=== PATIENT | male | born 1940 | race Caucasian/White ===

== ENCOUNTER → 2018-04-28 17:50 | Outpatient (CLI) | payer MEDICARE, MEDICAID, SELFPAY ==
[2018-04-28 18:34] LABS: PSA,Total - Annual Screen 1.24 ng/mL (0.00-4.00)
== END ==
PROVIDERS: Family Provider Internal Medicine; PCP Internal Medicine; Visit Provider Urology
DX: Z12.5 Encounter for screening for malignant neoplasm of prostate (principal)
CPT/HCPCS: 36415; 84153; G0103

== ENCOUNTER → 2020-03-12 11:42 | Outpatient (CLI) | payer MEDICARE, MEDICAID, SELFPAY ==
[2020-03-12 13:09] LABS: PSA,Total- Diagnostic 1.51 ng/mL (0.0-4.0)
== END ==
PROVIDERS: PCP Internal Medicine; Referring Provider Nurse Practitioner Adult Health; Visit Provider Nurse Practitioner Adult Health
DX: C61 Malignant neoplasm of prostate (principal)
CPT/HCPCS: 36415; 84153

== ENCOUNTER → 2021-04-22 16:11 | Outpatient (CLI) | payer MEDICARE, MEDICAID, SELFPAY ==
[2021-04-22 17:50] LABS: PSA,Total- Diagnostic 3.06 ng/mL (0.0-4.0)
== END ==
PROVIDERS: PCP Internal Medicine; Visit Provider Urology
DX: C61 Malignant neoplasm of prostate (principal)
CPT/HCPCS: 36415; 84153

== ENCOUNTER 2024-07-24 20:13 | Emergency (ER) | payer MEDICARE, MEDICAID, SELFPAY ==
[2024-07-24 20:15] VITALS: BP 163/93; PULSE 74; RESP 18; TEMP 36.7; O2SAT 98; BMI 28.9
--- NOTE | 2024-07-24 21:04 | ED.RN ---
PATIENT TOOK OXCARBAZEPINE 150 MG, SERTRALINE 150 MG FROM [employer] [facility]. 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 HE TOOK HIS THEN WALK AWAY, THEN ANOTHER MEMBER GOT HIS MEDICATIONS SAT ON THE TABLE IN FRONT OF HIM. TONI MUST HAVE WALKED BY AND TAKEN THE ADDITIONAL CUP OF MEDICATIONS THAT WAS NOT HIS OWN.
[2024-07-24 21:13] VITALS: BP 134/65; PULSE 70; RESP 14; O2SAT 97
[2024-07-24 21:23] LABS: Absolute Lymphocyte Count 4.74 X10^3/uL (0.83-4.51); Absolute Neutrophil Count 4.1 X10^3/uL (2.0-7.7); Basophil# 0.07 X10^3/uL; Basophil% 0.7 % (0-1); Eosinophils% 3.9 % (0-5); Hematocrit 37.8 % (40-54); Hemoglobin 12.7 g/dL (13.0-16.5); Lymphocyte # 4.74 X10^3/ul (0.83-4.51); Lymphocyte % 46.2 % (19-41); Mean Corp Hgb Conc 33.6 g/dL (32-36); Mean Corpuscular Hgb 31.1 pg (27.0-32.0); Mean Corpuscular Volume 92.4 fL (80-94); Mean Platelet Vol. 10.6 fl (6.2-12.0); Monocyte# 0.96 X10^3/uL; Monocyte% 9.4 % (0-10); NRBC Flagged by Analyzer 0 % (0-5); Neutrophil # 4.05 X10^3/uL (2.7-7.7); Neutrophil % 39.5 % (47-70); Platelet Count 178 K/mm3 (150-450); RBC Distribution Width CV 13.3 % (11.6-14.6); Red Blood Count 4.09 M/mm3 (4.6-6.2); White Blood Count 10.3 K/mm3 (4.4-11.0)
[2024-07-24 21:34] LABS: Anion Gap 7 (5-15); BUN 18 mg/dL (7-18); BUN/Creat Ratio 15.7 RATIO (10-20); Calcium,Total 9.1 mg/dL (8.5-10.1); Chloride 104 mmol/L (98-107); Creatinine, Serum 1.15 mg/dL (0.70-1.30); EST Glomerular Filtration Rate 64 mL/min (>60); Est Glom Filt Rate - Afr Amer 78 mL/min (>60); Estimated Creatinine Clearance 48.61 ml/min; Glucose 139 mg/dL (74-106); Potassium 3.4 mmol/L (3.5-5.1); Sodium Level 140 mmol/L (136-145)
--- NOTE | 2024-07-24 21:46 | EDS_ITS ---
HPI History of Present Illness Chief Complaint: Overdose Narrative Narrative: Chief complaint and HPI: Accidental medication ingestion. Patient is an 83-year-old male with history of MRDD who accidentally ingested someone else's medication. [place] of the other [place] [facility] [place] members left his medication on the counter and Fernandez accidentally ingested it. Patient's home medication this evening was 3 mg of melatonin, 10 mg of memantine, 10 mg of pravastatin. The medication that he accidentally took was 200 mg of sertraline and 100 mg of oxcabazepine. 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 His vitals are stable. Patient has no complaints. 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 Review of systems: See HPI Medications: As listed on the chart Allergies: As listed on the chart PFSH: Per chart Vital signs: As listed on the chart. Reviewed. Physical exam: Gen: Alert and oriented to self and place-patient's baseline per conservation worker, NAD Head: Normocephalic, atraumatic Eyes: No sclera icterus, conjunctiva clear, PERRL, EOMI ENT: Moist mucous membranes Neck: Trachea midline, No JVD CV: RRR, no murmurs, no peripheral edema Resp: Lungs CTA BL, no w/r/c GI: Abd soft, non-distended, non-tender, no r/r/g Musc: Full ROM, no deformity, strength normal and equal in all extremity Skin: Warm, dry Neuro: Alert, grossly intact Psych: Cooperative, appropriate mood and affect [facility] Medical History (Updated 07/24/24 @ 21:[address] Lio Gary, DO) Malignant neoplasm of prostate Gait abnormality Seborrheic dermatitis Unspecified intellectual disabilities Hyperlipidemia Edema Tobacco abuse Hypertension Alzheimer's dementia Home Medications ?Medication ?Instructions ?Recorded ?Last Taken ?Type amlodipine 5 mg tablet 5 mg PO DAILY 07/24/24 Unknown History hydrochlorothiazide 12.5 mg capsule 12.5 mg PO DAILY 07/24/24 Unknown History melatonin 3 mg tablet 3 mg PO QHS 07/24/24 Unknown History memantine 10 mg tablet 10 mg PO BID 07/24/24 Unknown History pravastatin 10 mg tablet 10 mg PO QHS 07/24/24 Unknown History Allergy/AdvReac Type Severity Reaction Status Date / Time No Known Allergies Allergy Verified 07/24/24 20:15 Social History Smoking Status: Current every day smoker tobacco type: pipe EXAM Physical Exam Const Vital Signs: 07/24/24 20:15 07/24/24 21:13 07/24/24 22:00 Temperature 98.1 F 98 F Temperature Source Temporal Pulse Rate 74 70 72 Respiratory Rate 18 14 14 Blood Pressure 163/93 H 134/65 H 115/69 Blood Pressure Mean 116 88 84 Pulse Ox 98 97 97 Oxygen Delivery Method Room Air Room Air MDM MDM MDM Narrative Medical decision making narrative: 83-year-old male presents for evaluation of accidental medication ingestion. The medication that he accidentally took was 200 mg of sertraline and 100 mg of oxcabazepine. Patient's vitals are stable. He is asymptomatic. Patient had labs and urine drug screen ordered and triage. Labs resulted by the time I saw the patient. I do not think that there is any need for a urine drug screen therefore this was discontinued. CBC without leukocytosis. Patient has anemia of 12.7. I do not have previous labs to compare to. I suspect that this is not acute. BMP is relatively unremarkable except for mild hyponatremia at 3.4. At this point in time, I do not think that there is any further workup that is needed. 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 Patient developed the symptoms and need to return back to the ED. I suspect patient will be asymptomatic. Follow-up with PCP especially for his anemia. They confirmed understanding the plan. Patient is discharged home Impression: 1. Accidental medication ingestion 2. Anemia Lab Data Labs: Laboratory Results - last 24 hr 07/24/24 07/24/24 21:12 21:20 WBC 10.3 RBC 4.09 L Hgb 12.7 L Hct 37.8 L MCV 92.4 MCH 31.1 MCHC 33.6 RDW Std Deviation 45.0 H RDW Coeff of Bertha 13.3 Plt Count 178 MPV 10.6 Immature Gran % (Auto) 0.300 Neut % (Auto) 39.5 L Lymph % (Auto) 46.2 H [place] % (Auto) 9.4 Eos % (Auto) 3.9 Baso % (Auto) 0.7 Absolute Neuts (auto) 4.1 Absolute Lymphs (auto) 4.74 H Nucleated RBC % 0 Sodium 140 Potassium 3.4 L Chloride 104 Carbon Dioxide 29.0 Anion Gap 7 BUN 18 Creatinine 1.15 Estim Creat Clear Calc 48.61 Est GFR (MDRD) Af Amer 78 Est GFR (MDRD) Non-Af 64 BUN/Creatinine Ratio 15.7 Glucose 139 H Calcium 9.1 Salicylates Cancelled Urine Opiates Screen Cancelled Urine Methadone Screen Cancelled Acetaminophen Cancelled Ur Barbiturates Screen Cancelled Ur Phencyclidine Scrn Cancelled Ur Amphetamines Screen Cancelled MDMA (Ecstasy) Screen Cancelled U Benzodiazepines Scrn Cancelled Urine Cocaine Screen Cancelled U Cannabinoids Screen Cancelled Ur Drug Screen Comment Cancelled Ethyl Alcohol Cancelled Discharge Plan Triage Chief Complaint: Overdose ED Provider: Lio Gary Dx/Rx/DC Orders Clinical Impression: Accidental drug ingestion Instructions: ED Accidental Ingestion ... Prescriptions: No Action melatonin 3 mg tablet 3 mg PO QHS amlodipine 5 mg tablet 5 mg PO DAILY pravastatin 10 mg tablet 10 mg PO QHS hydrochlorothiazide 12.5 mg capsule 12.5 mg PO DAILY memantine 10 mg tablet 10 mg PO BID Primary Care Provider: Javy Vega Referrals: Javy Vega MD [Primary Care Provider] - 3-5 Days Activity Restrictions/Additional Instructions: Monitor for symptoms. Return back to the ED if symptoms occur. Symptoms consist of increased temperature, stiffness, nausea, vomiting, altered mental status Print Language: [place] Disposition Disposition: Home, Self Care Discharge Date/Time: 07/24/24 22:16
[2024-07-24 22:00] VITALS: BP 115/69; PULSE 72; RESP 14; TEMP 36.6; O2SAT 97
== END 2024-07-24 22:16 | disposition home or self-care (01) ==
PROVIDERS: Emergency Provider Surgery; PCP Internal Medicine; Visit Provider Surgery
DX: T43.221A Poisoning by selective serotonin reuptake inhibitors, accidental (unintentional), initial encounter (principal); G30.9 Alzheimer's disease, unspecified; F02.80 Dementia in other diseases classified elsewhere, unspecified severity, without behavioral disturbance, psychotic disturbance, mood disturbance, and anxiety; T42.1X1A Poisoning by iminostilbenes, accidental (unintentional), initial encounter; D64.9 Anemia, unspecified; I10 Essential (primary) hypertension; E78.5 Hyperlipidemia, unspecified; F17.290 Nicotine dependence, other tobacco product, uncomplicated; Z79.899 Other long term (current) drug therapy; Z85.46 Personal history of malignant neoplasm of prostate
CPT/HCPCS: 80048; 85025; 99282; A4216

== ENCOUNTER 2025-09-29 14:46 | Emergency (ER) | payer MEDICARE, MEDICAID, SELFPAY ==
[2025-09-29 14:47] VITALS: BP 162/80; PULSE 81; RESP 15; TEMP 36.3; O2SAT 98; BMI 31.6
--- NOTE | 2025-09-29 15:06 | CT_ITS ---
PROCEDURE: BRAIN/HEAD WITHOUT CONTRAST 09/29/2025 REASON FOR EXAM: HEAD INJURY. Fell. Small laceration on nose. No LOC. TECHNIQUE: Procedure Code: CTBR Modality: CT Procedure: BRAIN/HEAD WITHOUT CONTRAST Coronal and Sagittal reconstruction series were provided. One or more dose reduction techniques were used (e.g., Automated exposure control, adjustment of the mA and/or kV according to patient size, use of iterative reconstruction technique. RADIATION DOSE SUMMARY: CTDlvol: 44.99 mGy DLP: 762.36 mGycm COMPARISON: None. FINDINGS: BRAIN: No acute intraparenchymal hemorrhage. No mass lesion. No CT evidence for acute territorial infarct. No midline shift or extra-axial collection. Diffuse cerebral volume loss with corresponding ventricular prominence. Patchy periventricular white matter low attenuation, likely microvascular ischemic changes. VENTRICLES: No hydrocephalus. ORBITS: Intraocular lens implants bilaterally. The orbits are otherwise unremarkable. SINUSES AND MASTOIDS: Small left ethmoid sinus retention cyst/polyp. The mastoid air cells are clear. SOFT TISSUES: Minimal swelling in the right forehead/frontal scalp. No radiodense foreign body. BONES: The calvarium is intact. No acute osseous abnormality seen. OTHER: Carotid siphon calcification bilaterally. Soft tissue density within the external auditory canals bilaterally, likely cerumen. CT/Brain/Head without Contrast IMPRESSION: 1. No acute intracranial abnormality. 2. Minimal right forehead/frontal scalp soft tissue swelling. Reading Location: [id number]
--- NOTE | 2025-09-29 15:08 | EDS_ITS ---
HPI History of Present Illness Chief Complaint: Fall Informant: family and SNF Narrative Narrative: Patient is an 85-year-old male with past medical history of hypertension hyperlipidemia and dementia who stays in a retirement. Shortly prior to arrival he had a witnessed fall. According to the retirement he tripped and fell striking his head/face. There was no reported loss of consciousness. Patient sustained an abrasion to his forehead as well as his nose. The retirement states he is not on blood thinners. Family states he is acting appropriately and at his baseline mental status. The patient denies any pain at this time. However because of his fall and head/facial injury he was sent to the ER for evaluation. [facility] Medical History Malignant neoplasm of prostate Gait abnormality Seborrheic dermatitis Unspecified intellectual disabilities Hyperlipidemia Edema Tobacco abuse Hypertension Alzheimer's dementia Medical History unable to obtain Home Medications ?Medication ?Instructions ?Recorded ?Last Taken ?Type amlodipine 5 mg tablet 5 mg PO DAILY 07/24/24 Unkno wn History memantine 10 mg tablet 10 mg PO BID 07/24/24 Unknow n History pravastatin 10 mg tablet 10 mg PO QHS 07/24/24 Unknow n History fluticasone propionate 50 1 spray intranasal DAILY 04/18 Unknown History mcg/actuation nasal spray,suspension guaifenesin 100 mg/5 mL oral 600 mg PO Q4H PRN cough 1 11/30/24 Unknown History liquid (Adult Tussin Chest Congestion) hydrochlorothiazide 25 mg tablet 25 mg PO DAILY Unknown History loperamide 2 mg tablet (Diamode) 2 mg PO PRN 09/29/25 Unknown History magnesium hydroxide 400 mg/5 mL 30 ml PO PRN 09/29/25 Unknown History oral suspension (Dulcolax (magnesium hydroxide)) melatonin 5 mg tablet 5 mg PO QHS 09/29/25 Unknown History quetiapine 25 mg tablet 12.5 mg PO QHS 09/29/25 Unkn own History Allergy/AdvReac Type Severity Reaction Status Date / Time No Known Allergies Allergy Verified 09/29/25 14:50 Family History no significant family his Surgical History unable to obtain Social History Smoking Status: Current every day smoker tobacco type: pipe ROS ROS ED ROS Narrative Please note review of systems may be unreliable secondary to patient's history of dementia Constitutional Constitutional ED: Denies chills or fever(s) Eyes Eyes: Denies blurry vision or change in vision ENT ENT ED: Reports other Details: Negative epistaxis ; Denies sore throat Cardiovascular Cardiovascular: Reports other Details: Negative syncope ; Denies chest pain, palpitations or racing heartbeat Respiratory/Chest Respiratory/Chest: Denies cough or dyspnea Gastrointestinal Gastrointestinal: Denies abdominal pain, diarrhea, nausea or vomiting Musculoskeletal Musculoskeletal: Denies back pain, myalgias or neck pain Integumentary Reports other Details: Positive abrasion to the forehead as well as bridge of nose Neurologic Neurologic: Denies headache(s) Hematologic/Lymphatic Hematologic/Lymphatic: Denies easy bleeding or easy bruising EXAM Physical Exam Const Vital Signs: 09/29/25 14:47 09/29/25 14:51 Temperature 97.4 F L Temperature Source Oral Pulse Rate 81 Respiratory Rate 15 Respiratory Effort Normal Respiratory Depth Normal Respiratory Pattern Normal Blood Pressure 162/80 H Blood Pressure Mean 107 Pulse Ox 98 Oxygen Delivery Method Room Air Room Air Positive well nourished and well developed General Appearance ED: well developed HEENT HEENT Narrative: Patient has a small 1 x 1 cm superficial abrasion and hematoma to the right portion of the forehead There is a dermal layer skin avulsion to the bridge of the nose without active bleeding or retained foreign object No signs of depressed or basilar skull fracture No septal hematoma noted Eyes PERRL and EOMs intact bilaterally Eyes Narrative: No hyphema noted General Eye ED: Negative for scleral icterus Neck supple Neck Narrative: No pain on palpation of the cervical spine No bony deformity or step-off Patient can move his neck in all directions without pain Chest Wall palpation of chest normal Chest Narrative: No pain on palpation or subcutaneous emphysema noted Resp normal respiratory effort and clear to auscultation bilaterally Cardio regular rate and regular rhythm GI normal to inspection, nondistended, normoactive bowel sounds, non-tender, non- distended and no masses GI Narrative: No voluntary guarding or rigidity or pulsatile mass No overlying abrasions or ecchymosis Auscultation: normoactive bowel sounds Palpation: soft Back/Spine Back/Spine Narrative: No bony deformity or step-off of the thoracic or lumbar spine No midline tenderness to palpation Extremity normal to inspection Extremity Narrative: Pelvis is stable there is no shortening or external rotation of either lower extremity Patient can move both arms and legs without difficulty No sign of long bone injury such as bony deformity or joint effusion Neuro CN's II-XII intact bilaterally and no sensory deficits noted Neuro Narrative: Patient is at his baseline mental status without focal neurologic deficit Sensorium / Orientation: alert Psych mental status grossly normal Skin Skin Narrative: Superficial abrasion and hematoma to the right portion of the forehead as documented above Skin avulsion that is dermal layer deep without active bleeding to the bridge of the nose as documented above MDM MDM MDM Narrative Medical decision making narrative: Patient arrived to the ER hypertensive but has a past medical history of this otherwise with stable vitals. long term reported a mechanical fall and therefore he felt no need for cardiac or syncope workup. He did have a small hematoma to the forehead as well as the skin tear/avulsion at the bridge of the nose. In order to assess for traumatic skull fracture versus subarachnoid or subdural hemorrhage or nasal fracture a CT of the head was obtained. As there was no pelvic pain or shortening or rotation of the lower extremities or signs of long bone injury I felt no need for x-rays. Also as he was able to move his neck in all directions my concern for cervical compression fracture or a thoracic or lumbar fracture was low as there was no pain with palpation or motion so I felt no need for plain film imagings of these either. The head CT revealed no acute bleed or facial fracture which correlates with his physical exam. Therefore at this time as we have ruled out underlying traumatic injury and there is no skin left to suture at the bridge of the nose the patient is otherwise safe for discharge back to the retirement. History & Record Review Discussion w/independent historian: Patient, Family and Other (long term report) Radiography Diagnostic Testing: Clinical Impression(s) from Imaging Studies Brain CT 09/29/25 15:06 IMPRESSION: 1. No acute intracranial abnormality. 2. Minimal right forehead/frontal scalp soft tissue swelling. Reading Location: [facility] Discharge Plan Triage Chief Complaint: Fall ED Provider: Joe Knight Dx/Rx/DC Orders Clinical Impression: Closed head injury, Avulsion of skin, Accidental fall, Hypertension, Hyperlipidemia, Dementia Instructions: ED Head Injury (Adult), ED Skin Tear (Skin Avulsion) Prescriptions: No Action fluticasone propionate 50 mcg/actuation spray,suspension 1 spray INTRANASAL DAILY guaifenesin [Adult Tussin Chest Congestion] 100 mg/5 mL liquid 600 mg PO Q4H PRN (Reason: cough) hydrochlorothiazide 25 mg tablet 25 mg PO DAILY loperamide [Diamode] 2 mg tablet 2 mg PO PRN melatonin 5 mg tablet 5 mg PO QHS magnesium hydroxide [Dulcolax (magnesium hydroxide)] 400 mg/5 mL suspension 30 ml PO PRN quetiapine 25 mg tablet 12.5 mg PO QHS amlodipine 5 mg tablet 5 mg PO DAILY pravastatin 10 mg tablet 10 mg PO QHS memantine 10 mg tablet 10 mg PO BID Primary Care Provider: Javy Vega Referrals: Javy Vega MD [Primary Care Provider, Internal Medicine] Activity Restrictions/Additional Instructions: The patient's head CT revealed no sign of skull fracture or brain bleed or nasal fracture. The skin to the nose has been avulsed and there is no need for closure/suture and this will heal on its own over the course of the next 1 to 2 weeks. Continue all of his home medications as directed by his doctor and return to the ER if there is any further concern Print Language: Citizen Of [place] Disposition Disposition: Home, Self Care
--- OUTSIDE RECORDS SUMMARY | 2025-09-29 15:43 | XMS RPT_ITS | CCD ---
Author Organization [facility] Care Team Providers Care Farmer Vegetable Name Role Phone Javy Melendez MD Primary Care Provider [phone] Javy Melendez Primary Care Unavailable Lio Gary Attending UnavailJavy Garcia MD Primary Care Provider [phone] Adeel RESTAURANT DISTRICT MANAGER.Queta CHAUDHARI Unavailable [phone] KAITLYNN GARCIA Attending Unavailable KAITLYNN GARCIA Referring Unavailable JAVY MELENDEZ Primary Care Unavailable QUETA DENIS Attending Unavailable JAVY MELENDEZ Primary Care Unavailable QUETA DENIS Referring Unavailable JAVY MELENDEZ Primary Care Unavailable JAVY MELENDEZ Primary Care Unavailable SELF Referring Unavailable JAVY MELENDEZ Primary Care Unavailable QUETA DENIS Attending Unavailable JAVY MELENDEZ Attending Unavailable JAVY MELENDEZ Primary Care Unavailable JAVY MELENDEZ Primary Care Unavailable KAITLYNN GARCIA Attending Unavailable KAITLYNN GARCIA Referring Unavailable DEBBI VUONG Attending Unavailable JAVY MELENDEZ Primary Care Unavailable SELF Referring Unavailable JAVY MELENDEZ Primary Care Unavailable QUETA DENIS Attending Unavailable KEN LAZO Attending Unavailable JAVY MELENDEZ Primary Care Unavailable JAVY MELENDEZ Primary Care Unavailable SELF Referring Unavailable QUETA DENIS Attending Unavailable JAVY MELENDEZ Primary Care Unavailable QUETA DENIS Referring Unavailable JAVY MELENDEZ Primary Care Unavailable KAITLYNN GARCIA Referring Unavailable Medications Current Medications Medication Drug Class(es) Dates Sig (Normalized) Sig (Original) amLODIPine 2.5 mg oral tablet (20 sources) Dihydropyridine Calcium Channel Nicholas Start: 06-05-2025 take 1 tablet by mouth once daily amLODIPine (NORVASC) 2.5 mg tablet Indications: Primary hypertension Take 1 tablet by mouth once daily. 90 tablet 1 06/05/2025 Active Start: 11-03-2023 End: 06-05-2025 take 1 tablet by mouth once daily for hypertension amLODIPine (NORVASC) 5 mg tablet Take 1 tablet by mouth once daily. For hypertension. 90 tablet 3 11/03/2024 06/05/2025 Discontinued (Dosage adjustment) Start: 08-05-2021 End: 03-03-2023 take 1 tablet by mouth once daily for hypertension amLODIPine (NORVASC) 5 mg tablet Take 1 tablet by mouth once daily. For hypertension. 90 tablet 3 03/03/2023 Active Comment on above: [facility]. hydroCHLOROthiazide 25 mg oral tablet (20 sources) Thiazide Diuretic Start: 2024 take 1 tablet by mouth once daily hydroCHLOROthiazide 25 mg tablet Indications: Venous insufficiency of both lower extremities , Primary hypertension Take 1 tablet by mouth once daily. 90 tablet 1 06/05/2025 Active Start: 11-03-2023 End: 06-05-2025 take 1 capsule by mouth once daily hydroCHLOROthiazide 12.5 mg capsule Take 1 capsule by mouth once daily. 90 capsule 3 11/03/2024 06/05/2025 Discontinued (Dosage adjustment) Start: 02-28-2021 End: 03-03-2023 take 1 capsule by mouth once daily hydroCHLOROthiazide 12.5 mg capsule Indications: Edema, unspecified type Take 1 capsule by mouth once daily. 90 capsule 3 03/03/2023 Active Comment on above: Take [address] [facility] once daily. melatonin 3 mg oral tablet (20 sources) Start: 02-04-2024 End: 04-30-2025 melatonin 3 mg tablet Take 1 tablet at 7PM nightly. 90 tablet 04/30/2025 Active Start: 11-03-2023 End: 02-04-2024 take 1 tablet by mouth every twenty-four hours as needed melatonin 5 mg tablet Take 1 tablet by mouth at bedtime as needed for insomnia. 90 tablet 3 11/03/2023 02/04/2024 Discontinued Comment on above: Take 1 tablet at 7PM nightly. Take 1 tablet by deepthi th at bedtime as needed for insomnia. memantine hydrochloride 10 mg oral tablet (20 sources) D-iphmqq-R-aspartate Receptor Antagonist Start: 4 End: 5 take 1 tablet by mouth twice daily memantine (NAMENDA) 10 mg tablet Take 1 tablet by mouth two times a day. 180 tablet 04/30/2025 Active Start: 02-04-2024 End: 05-05-2024 memantine (NAMENDA) 5 mg tab let Take 1 tablet in AM x1 week, then increase to 1 tablet in AM and PM x1 week, then increase to 2 tabs in AM and 1 tab in PM x1 week. Then transition to the 10mg tablets (separate Rx). 42 tablet 0 02/04/2024 05/05/2024 Discontinued Comment on above: Take 1 tablet in AM x1 week, then increase to 1 tablet in AM and PM x1 week, then increase to 2 tabs in AM and 1 tab in PM x1 week. Then transition to the 10mg tablets (separate Rx). Take 1 tablet by deepthi th two times a day. (take after 5mg tablet titration complete) petrolatum 0.44 mg/mg topical ointment (20 sources) Start: 08-05-20 16 mineral oil/hydrophil petrolatum (AQUAPHOR) oint Indications: Contact dermatitis and eczema Apply 1 application to affected area twice daily. For dry skin/eczema of right hand. 1 Tube 3 08/05/2016 Active Comment on above: Apply 1 application to affected area twice daily. For dry skin/eczema of right hand. pravastatin sodium 10 mg oral tablet (20 sources) HMG-CoA Reductase Inhibitor Start: 11-03-19 24 End: 11-02-19 25 take 1 tablet by mouth once daily at bedtime for hyperlipidemia pravastatin (PRAVACHOL) 10 mg tablet Take 1 tablet by mouth daily at bedtime. For high cholesterol. 90 tablet 3 11/03/2024 Active Start: 08-05-2021 End: 03-03-2023 take 1 tablet by mouth once daily at bedtime for hyperlipidemia pravastatin (PRAVACHOL) 10 mg tablet Indications: Hyperlipidemia, unspecified hyperlipidemia type Take 1 tablet by mouth daily at bedtime. For high cholesterol. 90 tablet 3 03/03/2023 Active Comment on above: Take 1 tablet by deepthi th daily at bedtime. For high cholesterol. Completed/Discontinued Medications Medication Drug Class(es) Dates Sig (Normalized) Sig (Original) predniSONE 10 mg oral tablet (5 sources) Start: 05-29-2024 End: 11-08-2024 predniSONE (DELTASONE) 10 mg tablet Take 4 tabs daily for 3 days, then 2 tabs daily for 3 days, then 1 tab daily for 3 days with food. 21 tablet 05/29/2024 11/08/2024 Discontinued (Course of therapy completed) Problems Active Problems Problem Classification Problem Date Documented Date Episodic/Chronic Acquired foot deformities (2 sources) Hammer toe; Translations: [Other hammer toe(s) (acquired), right foot] Onset: 07-05-2025 07-05-2025 Chronic Acquired foot deformities (2 sources) Hammer toe; Translations: [Other hammer toe(s) (acquired), left foot] Onset: 07-05-2025 07-05-2025 Chronic Attention-deficit, conduct, and disruptive behavior disorders (3 sources) Altered behavior; Translations: [Other symptoms and signs involving appearance and behavior] 02-04-2024 Episodic Attention-deficit, conduct, and disruptive behavior disorders (1 source) Other symptoms and signs involving appearance and behavior; Translations: [Behavioral change] Onset: 07-25-2025 Episodic Developmental disorders (20 sources) Intellectual disability; Translations: [Unspecified intellectual disabilities] Onset: 02-12-2006 02-12-2006 Chronic Disorders of lipid metabolism (20 sources) Hyperlipidemia; Translations: [Hyperlipidemia, unspecified] Onset: 02-12-2006 Resolved: 02-18-2018 08-21-2016 Chronic Essential hypertension (20 sources) Essential hypertension; Translations: [Essential (primary) hypertension] Onset: 03-21-2014 Chronic Genitourinary symptoms and ill-defined conditions (1 source) Nocturia; Translations: [Nocturia] 05-26-2024 Episodic Immunizations and screening for infectious disease (4 sources) Patient encounter status; Translations: [Encounter for immunization] Episodic Malaise and fatigue (1 source) Fatigue; Translations: [Other fatigue] Episodic Other connective tissue disease (1 source) Pain of right upper arm; Translations: [Pain in right upper arm] 05-26-2024 Episodic Other connective tissue disease (3 sources) Pain in right arm; Translations: [Pain in right arm] 05-29-2024 Episodic Other connective tissue disease (2 sources) Pain of toe of left foot; Translations: [Pain in left toe(s)] 04-03-2025 Episodic Other connective tissue disease (2 sources) Pain of toe of right foot; Translations: [Pain in right toe(s)] 04-03-2025 Episodic Other diseases of veins and lymphatics (1 source) Venous insufficiency of leg; Translations: [Venous insufficiency (chronic) (peripheral)] 06-05-2025 Episodic Other diseases of veins and lymphatics (1 source) Venous insufficiency (chronic) (peripheral); Translations: [Venous insufficiency of both lower extremities] Onset: 06-05-2025 Episodic Other ear and sense organ disorders (1 source) Conductive hearing loss, bilateral; Translations: [Conductive hearing loss, bilateral] 04-25-2025 Chronic Other ear and sense organ disorders (2 sources) Impacted cerumen of bilateral ears; Translations: [Impacted cerumen, bilateral] 04-25-2025 Episodic Other inflammatory condition of skin (20 sources) Seborrheic dermatitis; Translations: [Seborrheic dermatitis, unspecified] 02-12-2006 Episodic Other nervous system disorders (5 sources) Impaired cognition; Translations: [Other symptoms and signs involving cognitive functions and awareness] 02-04-2024 Episodic Other nutritional; endocrine; and metabolic disorders (20 sources) Obese class I; Translations: [Obesity, unspecified] Onset: 08-28-2019 08-28-2019 Chronic Other skin disorders (2 sources) Foot callus; Translations: [Corns and callosities] 04-03-2025 Episodic Other upper respiratory infections (1 source) Chronic maxillary sinusitis; Translations: [Chronic maxillary sinusitis] Onset: 08-22-2025 Chronic Other upper respiratory infections (2 sources) Postnasal drip; Translations: [Acute laryngitis] Onset: 08-22-2025 Episodic Poisoning by psychotropic agents (1 source) Poisoning by selective serotonin reuptake inhibitors, accidental (unintentional), initial encounter; Translations: [Poisoning by selective serotonin reuptake inhibitors, accidental (unintentional), initial encounter] Onset: 08-21-2024 Episodic Residual codes; unclassified (2 sources) Insomnia; Translations: [Insomnia, unspecified] 02-04-2024 Episodic Residual codes; unclassified (1 source) Bilateral lower limb edema; Translations: [Localized edema] 06-05-2025 Episodic Residual codes; unclassified (2 sources) Localized edema; Translations: [Edema of lower extremity] Onset: 06-05-2025 Episodic Residual codes; unclassified (1 source) Insomnia, unspecified; Translations: [Insomnia, unspecified type] Onset: 07-25-2025 Episodic Substance-related disorders (20 sources) Tobacco user; Translations: [Nicotine dependence, unspecified, uncomplicated] Onset: 01-02-2011 01-02-2011 Chronic Past or Other Problems Problem Classification Problem Date Documented Date Episodic/Chronic Allergic reactions (16 sources) Contact dermatitis; Translations: [Unspecified contact dermatitis, unspecified cause] Onset: 02-12-2006 Resolved: 02-20-2016 02-20-2016 Episodic Cancer of prostate (20 sources) Malignant tumor of prostate; Translations: [Malignant neoplasm of prostate] Onset: 05-24-2009 Resolved: 11-03-2023 10-20-2021 Chronic Coma; stupor; and brain damage (2 sources) Drowsy; Translations: [Somnolence] Onset: 04-25-2025 04-25-2025 Episodic Diabetes mellitus without complication (8 sources) Disorder of glucose metabolism; Translations: [Other abnormal glucose] Onset: 05-22-2025 Episodic Mycoses (3 sources) Onychomycosis; Translations: [Tinea unguium] Onset: 04-03-2025 04-03-2025 Episodic Other and unspecified benign neoplasm (16 sources) Tubular adenoma of colon; Translations: [Benign neoplasm of colon, unspecified] Onset: 08-17-2011 Resolved: 02-19-2017 02-19-2017 Episodic Other congenital anomalies (16 sources) Pectus excavatum; Translations: [Pectus excavatum] Resolved: 01-02-2011 01-02-2011 Chronic Other connective tissue disease (1 source) Pain in left toe(s); Translations: [Pain in toe of left foot] Onset: 04-03-2025 Episodic Other connective tissue disease (1 source) Pain in right toe(s); Translations: [Pain in toe of right foot] Onset: 04-03-2025 Episodic Other ear and sense organ disorders (1 source) Impacted cerumen, bilateral; Translations: [Bilateral impacted cerumen] Onset: 05-03-2025 Episodic Other nervous system disorders (20 sources) Abnormal gait; Translations: [Unspecified abnormalities of gait and mobility] Onset: 04-24-2021 04-24-2021 Episodic Other nervous system disorders (1 source) Other symptoms and signs involving cognitive functions and awareness; Translations: [Cognitive decline] Onset: 05-22-2025 Episodic Other nervous system disorders (1 source) Unsteadiness on feet; Translations: [Unsteady gait] Onset: 04-25-2025 Episodic Other nervous system disorders (1 source) Unspecified abnormalities of gait and mobility; Translations: [Gait abnormality] Onset: 04-24-2021 Episodic Other screening for suspected conditions (not mental disorders or infectious disease) (16 sources) Raised prostate specific antigen; Translations: [Elevated prostate specific antigen [PSA]] Resolved: 01-02-2011 01-02-2011 Episodic Other skin disorders (1 source) Corns and callosities; Translations: [Callus of foot] Onset: 04-03-2025 Episodic Residual codes; unclassified (20 sources) Edema; Translations: [Edema, unspecified] Onset: 05-26-2016 Episodic Residual codes; unclassified (16 sources) H/O: Disorder; Translations: [Personal history of other medical treatment] Onset: 01-04-2012 Resolved: 02-18-2018 02-18-2018 Episodic Residual codes; unclassified (3 sources) Edema of lower extremity; Translations: [Localized edema] Onset: 05-26-2016 06-05-2025 Episodic Residual codes; unclassified (1 source) Pain, unspecified; Translations: [Pain] Onset: 04-03-2025 Episodic Results Test Name Value Interpretation Reference Range Facility [facility] 08-22-2025 CNOV Office Visit (WOUCA) -------- BJ DAY ([id number]) 1940 M Date Time Provider Department 08/22/25 5:45 PM KEN LAZO During your visit today, we recorded the following information about you: Temperature Pulse Respiration Blood pressure 99.3 degrees 83/minute 18/minute 137/72 Weight 90.8 kg Ken Lazo APRN.ASSOCIATE MANAGER 08/22/2025 6:45 PM Signed [facility] Subjective Bj aDy is a 84 year old male. Patient presents with: Head Congestion: Sinus drainage, ST x last night HPI The patient is an 84-year-old male with dementia who presents with hoarseness and nasal drainage. He is accompanied by a prison caregiver who provides history. The caregiver reports that last night the patient developed a deep, hoarse voice and significant nasal drainage. She notes that similar symptoms occurred last year, when he developed a deep voice and acted strangely, though the cause was unclear at that time. She brought him in today due to concern about his age and the recurrence of these symptoms. The patient reportedly ate dinner before the visit but refused his meal yesterday. He denies feeling sick, though the caregiver notes he may not reliably report symptoms due to his dementia. She reports no new behavioral changes beyond his baseline dementia-related fluctuations. He attends a workshop daily and lives in a prison with other residents. The caregiver inquires about influenza vaccination, as her supervisor inspection department requested all residents be vaccinated. She also asks about flu, COVID, and RSV testing due to the prison setting. No known drug allergies are reported. 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 MEDICATIONS memantine (NAMENDA) 10 mg tablet Take 1 tablet by mouth two times a day. amLODIPine (NORVASC) 5 mg tablet Take 1 tablet by mouth once daily. QUEtiapine (SEROQUEL) 25 mg tablet Take half a tablet at bedtime as needed melatonin 5 mg tablet Take 1 tablet by mouth daily at bedtime. hydroCHLOROthiazide 25 mg tablet Take 1 tablet by mouth once daily. pravastatin (PRAVACHOL) 10 mg tablet Take 1 tablet by mouth daily at bedtime. For high cholesterol. mineral oil/hydrophil petrolatum (AQUAPHOR) oint Apply 1 application to affected area twice daily. For dry skin/eczema of right hand. fluticasone (FLONASE ALLERGY RELIEF) 50 mcg/actuation nasal spray Use 1 spray in each nostril once daily. doxycycline hyclate (VIBRAMYCIN) 100 mg capsule Take 1 capsule by mouth two times a day for 7 days. Fluticasone Furoate (FLONASE SENSIMIST) 27.5 mcg/actuation nasal spray Use 2 sprays in each nostril once daily. FAMILY HISTORY Problem Relation Age of Onset No Known Problems Sister Cancer Mother Heart Father SOCIAL HISTORY[1] Objective BP 137/72 Pulse 83 Temp 37.4 ?C (99.3 ?F) Resp 18 Wt 90.8 kg (200 lb 2.8 oz) SpO2 98% BMI 32.17 kg/m? Physical Exam Constitutional: General: He is not in acute distress. Appearance: Normal appearance. He is normal weight. He is not ill-appearing or toxic-appearing. HENT: Head: Normocephalic and atraumatic. Right Ear: Ear canal and external ear normal. A middle ear effusion is present. Left Ear: Ear canal and external ear normal. A middle ear effusion is present. Nose: Mucosal edema, congestion and rhinorrhea present. Mouth/Throat: Mouth: Mucous membranes are moist. Tongue: No lesions. Pharynx: Uvula midline. Pharyngeal swelling, posterior oropharyngeal erythema and postnasal drip present. Eyes: Pupils: Pupils are equal, round, and reactive to light. Cardiovascular: Rate and Rhythm: Normal rate and regular rhythm. Heart sounds: Normal heart sounds, S1 normal and S2 normal. Pulmonary: Effort: Pulmonary effort is normal. Breath sounds: Normal breath sounds. No decreased breath sounds, wheezing, rhonchi or rales. Lymphadenopathy: Cervical: Cervical adenopathy present. Neurological: Mental Status: He is alert. { 1. Chronic maxillary sinusitis (J32.0) 2. Post-nasal drip (R09.82) 3. Acute laryngitis (J04.0) - (more content not included)... Normal [facility] CNOVon 07-26-2025 CNOV Office Visit (INTMWS ) -------- BJ DAY ([id number]) 1940 M Date Time Provider Department 07/26/25 1:00 PM QUETA DENIS INTMWS During your visit today, we recorded the following information about you: Pulse Respiration Blood pressure Weight 74/minute 16/minute 154/78 89 kg Queta Denis APRN.ASSOCIATE MANAGER 07/26/2025 1:38 PM Signed - Increase your amlodipine to 5 mg once daily. - Obtain knee-high or light-support support stockings to help with leg swelling. Measure from your heel to just below your knee and around the widest part of your calf for correct sizing; these can be ordered on [employer]. - Wear them each day as tolerated. - Attend your Medicare wellness visit in October for follow-up on your blood pressure and leg swelling. Queta Denis, ISABELA.ASSOCIATE MANAGER 07/26/2025 1:44 PM Signed CC: Patient presents with: Recheck HPI Recording using [employer] software for draft documentation of the visit was discussed with the patient/authorized tour sales representative; all questions welcomed and answered. Patient/authorized tour sales representative agreed to proceed The patient is an 84-year-old male with a history of intellectual disabilities presenting for a routine follow-up. Lower Extremity Edema: He was last seen on 06/05 with reports of bilateral lower extremity swelling. At that visit, hydrochlorothiazide was increased to 25 mg and amlodipine was decreased to 2.5 mg. Compression stockings were recommended. According to the caregiver, there has been no improvement in the swelling. The patient does not tolerate snug clothing on his legs, making it difficult to apply compression socks. Behavioral Issues: The caregiver reports ongoing concerns, stating that he is never aggressive toward others but may cause harm to himself. He is followed by neurology and was recently prescribed Seroquel 25 mg yesterday, though this medication has not been started yet. He also takes namenda 10 mg and melatonin. Blood Pressure: His blood pressure is 154/78. The caregiver notes it has trended upward since the amlodipine dose was decreased. 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 MEDICATIONS amLODIPine (NORVASC) 5 mg tablet Take 1 tablet by mouth once daily. QUEtiapine (SEROQUEL) 25 mg tablet Take half a tablet at bedtime as needed melatonin 5 mg tablet Take 1 tablet by mouth daily at bedtime. hydroCHLOROthiazide 25 mg tablet Take 1 tablet by mouth once daily. memantine (NAMENDA) 10 mg tablet Take 1 tablet by mouth two times a day. pravastatin (PRAVACHOL) 10 mg tablet Take 1 tablet by mouth daily at bedtime. For high cholesterol. mineral oil/hydrophil petrolatum (AQUAPHOR) oint Apply 1 application to affected area twice daily. For dry skin/eczema of right hand. FAMILY HISTORY Problem Relation Age of Onset No Known Problems Sister Cancer Mother Heart Father SOCIAL HISTORY[1] BP 154/78 Pulse 74 Resp 16 Wt 89 kg (196 lb 3.4 oz) SpO2 99% BMI 31.53 kg/m? Physical Exam Vitals reviewed. Constitutional: Appearance: Normal appearance. Musculoskeletal: Right lower le+ Pitting Edema present. Left lower le+ Pitting Edema present. Skin: General: Skin is warm and dry. Neurological: Mental Status: He is alert. Assessment/Plan 1. Primary hypertension: Blood pressure is 154/78 mmHg, indicating an upward trend since amlodipine dose was decreased. - Increased amlodipine from 2.5 mg to 5 mg daily. - Will re-evaluate blood pressure at the Medicare wellness visit in October. 2. Edema of lower extremity: Persistent lower extremity swelling with no improvement reported despite increased hydrochlorothiazide (25 mg). Patient does not tolerate snug-fitting compression garments. - Caregiver instructed on selecting knee-high compression socks or cost accounting manager support hose, including proper measurements of the calf and leg length; advised they could be purchased online. - Will reassess swelling at the October follow-up. 3. Unspecified intellectual disabilities: Patient exhibits self-directed aggression; no aggression toward others. Under neurology care; recently started on quetiapine (Seroquel) 25 mg, not yet admini (more content not included)... Normal [facility] CNOVon 07-25-2025 CNOV Office Visit (NEMLORIE ) -------- BJ DAY ([id number]) 1940 M Date Time Provider Department 07/25/25 11:30 AM DEBBI VUONG During your visit today, we recorded the following information about you: Pulse Respiration Blood pressure Weight 68/minute 16/minute 139/73 88.8 kg Debbi Vuong PA-C 07/25/2025 12:44 PM Signed [facility] Name: Bj Day Age: [age] year old Gender: male Primary Care Provider: Javy Melendez MD Assessment/Plan: 07/25/2025 - General Neurology, Debbi Vuong PA-C ASSESSMENT ASSESSMENT/PLAN: 1. Cognitive decline - ICD9: 294.9, ICD10: R41.89 (primary diagnosis) 2. Behavioral change - ICD9: 312.9, ICD10: R46.89 3. Insomnia, unspecified type - ICD9: 780.52, ICD10: G47.00 Patient presents today with caregiver for follow-up, caregiver provides history. Primary concern today is some worsening agitation, self inflicted aggression when the patient gets frustrated and some name-calling. Caregiver also notes that last winter in the days got short of the patient got more confused at night and 1 time took medications belonging to another patient. There was mention of Seroquel at last appointment, discussed at length the risks and benefits including . Caregiver would like to reach out to the patient's family prior to starting this, but would perhaps like to try it as needed at a low dose. Will write Seroquel 12.5 mg as needed at nighttime. Of note, patient also having some issues with daytime fatigue and taking multiple naps throughout the day. Having some issues with insomnia again at night, caregiver feels that he is used to his current dose of melatonin and may need an increase. Discussed increasing from 3 mg to 5 mg and caregiver agreeable. To take at 7 PM. Encouraged conservative therapy for cognition as well including physical and cognitive exercise. Patient still working 4 days a week and doing well with this. Caregiver also reporting some occasional changes with gait, seems unstable sometimes but other times it is normal. On exam does have a wide-based gait but not reporting any low back pain, neuropathy symptoms. Does have decreased reflexes in the lower extremities but no signs of hyperreflexia. No witnessed falls, but there is concerned about a possible fall as patient was taking a shower and had some bruises on his ribs on the left side but does not recall any fall. Encouraged caregiver patient to reach out should any falls occur, any further balance issues or other concerns. Will have patient follow-up in 3-6 months. Debbi Vuong PA-C Encounter Diagnosis ICD-10-CM 1. Cognitive decline R41.89 2. Behavioral change R46.89 3. Insomnia, unspecified type G47.00 Return in about 6 months (around 01/23/2026). Chart, labs,and relevant images reviewed. Chief Complaint:Patient presents with: Follow Up: Reports sleeps a lot and has some anger/behavioral issues that seem increased lately. Patient hits himself. Chart Review: 05/05/[address] Bronson ASSESSMENT/PLAN: 1. Cognitive decline - ICD9: 294.9, ICD10: R41.89 (primary diagnosis) 2. Behavioral change - ICD9: 312.9, ICD10: R46.89 Overall doing well since last visit and as discussed above. Will make no changes to medications today and will continue Namenda 10mg BID. Again, CT brain 8 years later dose show progression of atrophy but may be simply due to aging. As recommended last visit, if behaviors were to worsen, would then start low dose Seroquel at dinner and bedtime (I.e. 12.5mg). 3. Insomnia, unspecified type - ICD9: 780.52, ICD10: G47.00 Circadian pattern now regulated with pt taking melatonin nightly (scheduled). No additional workup or treatment needed at this time. Refills for Namenda and melatonin provided. Request Dr. Dykes CC us on upcoming annual labs (renal and hepatic function). Jaems Bronson MD HPI: Last seen on 05/05/[address] Bronson for cognitive decline. Occasionally gets upset, on namenda 10mg bid. Has a caregiver. Sleep is better on melatonin. May start seroquel if behavior worsens. Patient presents for follow-up with caregiver. History primarily provided by caregiver due to cognitive baseline. Caregiver reporting some mild to moderate worsening of agitation, self-inflicted aggression. Notes that he is starting to name call some of the providers, hits himself when he is frustrated but not to the point of significant injury. No physical violence against any other caregiver or prison member. No wandering at night. However caregiver does note that last winter with the shortened days, he was more confused at nighttime and once took somebody else's medications. No falls that were witnessed however there was a time recently where the caregiver was washing the patient in the shower and noted some bruises on the left si (more content not included)... Normal [facility] CNOVon 07-05-2025 CNOV Office Visit (PODIWS ) -------- HARMANBJ ([id number]) 1940 M Date Time Provider Department 07/05/25 11:00 AM KAITLYNN GARCIA During your visit today, we recorded the following information about you: Priya Hadley MA 07/05/2025 11:39 AM Signed Patient presents with: Right Foot - Follow Up, Nail care Left Foot - Follow Up, Nail care AMB ROOMING INTAKE FLOWSHEET DATA Biostatistician Aurora with patient today. Kaitlynn Garcia 07/05/2025 11:39 AM Signed Subjective: Patient presents to clinic c/o painful toenails. They state that the nails are especially painful with shoe gear and pressure. Patient states that nails 1-5 b/l are painful. Patient admits to having callus of b/l feet No other pedal complaints at this time. Patient states no change in medications or medical history since last visit. Objective: Patient presents to clinic ambulating in boots Vasc: DP and PT pulses are palpable bilateral. CFT is less than 5 seconds bilateral. Skin temperature is warm to cool proximal to distal bilateral. There is no edema or varicosities noted. Neuro: Protective sensation is decreased to the foot and toes when tested with the 5.07 SWM bilateral. The hallux is downgoing bilateral. Derm: Nails 1-5 b/l are painful, discolored-yellow, thick, crumbly, dystrophic and with subungal debris. Skin is of normal turgor, texture and hair growth is absent bilateral. There are callus to medial aspect of right hallux and distal tuft of b/l 3rd toe. No ulceration is present Ortho: Muscle strength is 5/5 for all pedal groups tested. Ankle joint DF is decreased with the knee extended with no pain or crepitus noted. 1st MPJ ROM is decreased bilateral. Hammertoes are present to lesser toes of b/l feet, most pronounced at 3rd toe Assessment: (B35.1) Onychomycosis (primary encounter diagnosis) (M79.675) Pain in toe of left foot (M79.674) Pain in toe of right foot (L84) Callus of foot (M20.41) Hammer toe of right foot (M20.42) Hammer toe of left foot Plan: Patient was seen and evaluated. Nails 1-5 bilateral were debrided in length and thickness. Small bleed to right 4th toe. Topical antibiotic and band aide applied. He only requires band aide for 1-2 days. Discussed callus of b/l 3rd toe as a result of hammertoe. Callus reduced with dremmel. Can use a hammertoe crest pad to help eliminate pressure to the tip of b/l 3rd toe. Caution should be performed to avoid to much tension on strap for pad. Can follow-up in 3 months or sooner for nail care LIVIA De Guzman Matthew 07/05/2025 11:39 AM Signed Can use hammertoe crest pad to help eliminate pressure on tip of 3rd toe. Please do not tight strap too tight Apply band aide with antibiotic to right 4th toe for 1-2 days or until the 4th toe is healed from small bleed sustained during nail debridement Kaitlynn Garcia DPM Referring Provider: KAITLYNN GARCIA [[id number]] Allergies As of Date: 07/05/2025 (No Known Allergies) Date Reviewed: 07/05/2025 Reviewed by: Priya Hadley MA - Fully Assessed Reason for Visit: Follow Up [171] Nail care [Other] Follow Up [171] Nail care [Other] Primary Visit Diagnosis:Onychomycosis [B35.1] Other Visit Diagnoses:Pain in toe of left foot [M79.675] Pain in toe of right foot [M79.674] Callus of foot [L84] Hammer toe of right foot [M20.41] Hammer toe of left foot [M20.42] Prescriptions as of 07/05/2025 - amLODIPine (NORVASC) 2.5 mg tablet Take 1 tablet by mouth once daily. - hydroCHLOROthiazide 25 mg tablet Take 1 tablet by mouth once daily. - melatonin 3 mg tablet Take 1 tablet at 7PM nightly. - memantine (NAMENDA) 10 mg tablet Take 1 tablet by mouth two times a day. - pravastatin (PRAVACHOL) 10 mg tablet Take 1 tablet by mouth daily at bedtime. For high cholesterol. - mineral oil/hydrophil petrolatum (AQUAPHOR) oint Apply 1 application to affected area twice daily. For dry skin/eczema of right hand. 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 Normal [facility] CNOVon 06-05-2025 CNOV Office Visit (INTMWS ) -------- BJ DAY ([id number]) 1940 M Date Time Provider Department 06/05/25 11:20 AM JAVY MELENDEZ INTMWS During your visit today, we recorded the following information about you: Pulse Respiration Blood pressure Weight 64/minute 18/minute 130/76 87.7 kg Javy Melendez MD 06/06/2025 10:32 AM Signed Subjective Bj Day is a 84 year old male. Patient presents with: Edema Bj was here with his caregiver. They were bathing him when they noticed a more pronounced edema right more than left. Bj had no complaints. They were interested in an order for compression stockings. Edema has been noted in the past. ACTIVE PROBLEM LIST Unspecified Intellectual Disabilities Seborrheic Dermatitis, Unspecified Tobacco Use Disorder Htn (Hypertension) Edema Hyperlipidemia Obesity, Class I, Bmi 30-34.9 Gait Abnormality Impaired Glucose Metabolism Social History Tobacco Use Smoking status: Every Day Types: Pipe Smokeless tobacco: Never Tobacco comments: 5-6 pipes per day Vaping Use Vaping status: Never Used Substance Use Topics Alcohol use: No Drug use: No Current Outpatient Medications Medication Sig melatonin 3 mg tablet Take 1 tablet at 7PM nightly. memantine (NAMENDA) 10 mg tablet Take 1 tablet by mouth two times a day. amLODIPine (NORVASC) 5 mg tablet Take 1 tablet by mouth once daily. For hypertension. hydroCHLOROthiazide 12.5 mg capsule Take 1 capsule by mouth once daily. pravastatin (PRAVACHOL) 10 mg tablet Take 1 tablet by mouth daily at bedtime. For high cholesterol. mineral oil/hydrophil petrolatum (AQUAPHOR) oint Apply 1 application to affected area twice daily. For dry skin/eczema of right hand. No current facility-administered medications for this visit. Review of Systems Constitutional: Negative for fever. Respiratory: Negative for shortness of breath. Cardiovascular: Negative for chest pain. Objective BP 130/76 (BP Site: Left Arm, BP Position: Sitting, BP Cuff Size: Large Adult) Pulse 64 Resp 18 Wt 87.7 kg (193 lb 5.5 oz) BMI 31.07 kg/m? Physical Exam Constitutional: General: He is not in acute distress. Appearance: He is not ill-appearing. Cardiovascular: Rate and Rhythm: Normal rate and regular rhythm. Heart sounds: S1 normal and S2 normal. No murmur heard. Pulmonary: Effort: No respiratory distress. Breath sounds: No wheezing, rhonchi or rales. Abdominal: General: There is no distension. Musculoskeletal: Right lower le+ Pitting Edema present. Left lower le+ Pitting Edema present. ASSESSMENT/PLAN: 1. Venous insufficiency of both lower extremities - ICD9: 459.81, ICD10: I87.2 (primary diagnosis) Medication adjustments made. - HYDROCHLOROTHIAZIDE 25 MG TABLET. Dose increased. - COMPRESSION STOCKINGS 2. Primary hypertension - ICD9: 401.9, ICD10: I10 - Controlled - AMLODIPINE 2.5 MG TABLET. Dose decreased. - HYDROCHLOROTHIAZIDE 25 MG TABLET 3. Edema of both legs - ICD9: 782.3, ICD10: R60.0 - See #1 and #2. - COMPRESSION STOCKINGS Javy Melendez MD Allergies As of Date: 06/05/2025 (No Known Allergies) Date Reviewed: 06/05/2025 Reviewed by: Aaliyah Cormier LPN - Fully Assessed Reason for Visit: Edema [39] Primary Visit Diagnosis:Venous insufficiency of both lower extremities [I87.2] Other Visit Diagnoses:Primary hypertension [I10] Edema of both legs [R60.0] Order(s):amLODIPine (NORVASC) 2.5 mg tabletTake 1 tablet by mouth once daily.Disp: 90 tabletRfl: 1 hydroCHLOROthiazide 25 mg tabletTake 1 tablet by mouth once daily.Disp: 90 tabletRfl: 1 COMPRESSION STOCKINGS [[id number]] Order #: [id number] Prescriptions as of 06/06/2025 - amLODIPine (NORVASC) 2.5 mg tablet Take 1 tablet by mouth once daily. - hydroCHLOROthiazide 25 mg tablet Take 1 tablet by mouth once daily. - melatonin 3 mg tablet Take 1 tablet at 7PM nightly. - memantine (NAMENDA) 10 mg tablet Take 1 tablet by mouth two times a day. - pravastatin (PRAVACHOL) 10 mg tablet Take 1 tablet by mouth daily at bedtime. For high cholesterol. - mineral oil/hydrophil petrolatum (AQUAPHOR) oint Apply 1 application to affected area twice daily. For dry skin/eczema of right hand. 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 Normal [facility] CNOVon 05-22-2025 CNOV Office Visit (INTMWS ) -------- BJ DAY ([id number]) 1940 M Date Time Provider Department 05/22/25 9:00 AM QUETA DENIS INTMWS During your visit today, we recorded the following information about you: Pulse Respiration Blood pressure Weight 68/minute 14/minute 122/78 89.2 kg Queta Denis, ISABELA.ASSOCIATE MANAGER 05/22/2025 9:19 AM Signed - Stay well-hydrated, especially when outside in hot weather--offer water or flavored water regularly. - Limit time in direct sun on very hot days; sit in shaded or indoor areas to avoid overheating. - If memory-related behaviors worsen or pose a safety risk, a psychiatry referral may be necessary Queta Denis, ISABELA.ASSOCIATE MANAGER 05/22/2025 9:46 AM Signed CC: Patient presents with: Recheck: 6 months HPI Recording using ambient [employer] software for draft documentation of the visit was discussed with the patient/authorized tour sales representative; all questions welcomed and answered. Patient/authorized tour sales representative agreed to proceed Bjjanny Day is an 84-year-old male with a history of HTN, hyperlipidemia, and cognitive declined, presenting for a 6-month follow-up, accompanied by his caregiver who is providing history on his behalf. Cognitive decline: - Recent increase in agitation and confusion. - Exhibits behaviors such as hitting himself and trash cans. - Has difficulty staying awake during the day; sleep is described as up and down. - Follow-up with neurology scheduled for July. - Taking Namenda. - Denies significant complaints Hypertension: - Well-controlled with amlodipine and hydrochlorothiazide. - Blood pressure today: 122/78 mmHg. - Monitors blood pressure monthly at home. Hyperlipidemia: - Managed with pravastatin. Prediabetes: - Recent A1c in the prediabetic range. 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 MEDICATIONS melatonin 3 mg tablet Take 1 tablet at 7PM nightly. memantine (NAMENDA) 10 mg tablet Take 1 tablet by mouth two times a day. amLODIPine (NORVASC) 5 mg tablet Take 1 tablet by mouth once daily. For hypertension. hydroCHLOROthiazide 12.5 mg capsule Take 1 capsule by mouth once daily. pravastatin (PRAVACHOL) 10 mg tablet Take 1 tablet by mouth daily at bedtime. For high cholesterol. mineral oil/hydrophil petrolatum (AQUAPHOR) oint Apply 1 application to affected area twice daily. For dry skin/eczema of right hand. FAMILY HISTORY Problem Relation Age of Onset No Known Problems Sister Cancer Mother Heart Father Social History Tobacco Use Smoking status: Every Day Types: Pipe Smokeless tobacco: Never Tobacco comments: 5-6 pipes per day Vaping Use Vaping status: Never Used Substance Use Topics Alcohol use: No Drug use: No BP 122/78 Pulse 68 Resp 14 Wt 89.2 kg (196 lb 10.4 oz) SpO2 98% BMI 31.60 kg/m? Physical Exam Vitals reviewed. Constitutional: Appearance: Normal appearance. Cardiovascular: Rate and Rhythm: Normal rate and regular rhythm. Heart sounds: Normal heart sounds. No murmur heard. Pulmonary: Effort: Pulmonary effort is normal. Breath sounds: Normal breath sounds. No wheezing, rhonchi or rales. Neurological: Mental Status: He is alert. Psychiatric: Mood and Affect: Mood and affect normal. Speech: Speech is delayed. Behavior: Behavior normal. Health maintenance reviewed with patient: DTaP,Tdap,Td Vaccine(1 - Tdap) due on 11/08/2025 RSV Vaccine(1 - 1-dose 75+ series) due on 11/08/2025 Shingrix Vaccine(1 of 2) due on 11/08/2025 Depression Screening due on 11/08/2025 Anxiety Screening due on 11/08/2025 Medicare Annual Wellness Visit due on 11/08/2025 Diabetes Screening due on 04/25/2028 Advance Directive Discussion Completed Pneumococcal Vaccine: 50+ Completed Influenza Vaccine Discontinued DATA REVIEWED: Most recent labs Latest Ref Rng 04/25/2025 WBC 3.70 - 11.00 k/uL 10.34 RBC 4.20 - 6.00 m/uL 4.37 Hemoglobin 13.0 - 17.0 g/dL 13.2 Hematocrit 39.0 - 51.0 % 39.2 MCV 80.0 - 100.0 fL 89.7 MCH 26.0 - 34.0 pg 30.2 MCHC 30.5 - 36.0 g/dL 33.7 RDW-CV 11.5 - 15.0 % 13.4 Platelet Count 150 - 400 k/uL 195 MPV 9.0 - 12.7 fL 11.2 Absolute nRBC <0.01 k/uL <0.01 Hemoglobin A1C 4.3 - 5.6 % 6.1 (H) Estimated Av (more content not included)... Normal [facility] ESTHEROVon 05-03-2025 CNOV Office Visit (WOUCA) -------- BJ DAY ([id number]) 1940 M Date Time Provider Department 05/03/25 8:15 AM URG CARE RYLIE HIGGINS During your visit today, we recorded the following information about you: Temperature Pulse Respiration Blood pressure 97.6 degrees 64/minute 18/minute 135/75 Weight 89 kg Nael Gilliland APRN.[facility] 05/03/2025 8:50 AM Signed URGENT CARE RYLIE Subjective Bj Day is a 84 year old male c/o ear wax occlusion bilaterally, sent by fpc, baseline mental status, up to table without loss of balance, steady gait, seen at doctor's office last week but didn't have time to clean out Patient presents with: Earwax: Bilat ear impacted with wax, was seen last week and doc was unable to clean out , having balance issues The history is provided by the patient and the fpc. Ear Problem There is pain in both ears. This is a new problem. The current episode started 1 to 4 weeks ago. The problem occurs constantly. The problem has been unchanged. There has been no fever. Pertinent negatives include no coughing. He has tried nothing for the symptoms. Review of Systems Constitutional: Negative for chills, fatigue and fever. HENT: Positive for ear pain. Respiratory: Negative for cough and shortness of breath. Objective BP 135/75 Pulse 64 Temp 36.4 ?C (97.6 ?F) Resp 18 Wt 89 kg (196 lb 3.4 oz) SpO2 99% BMI 31.53 kg/m? Physical Exam Vitals and nursing note reviewed. Constitutional: Appearance: Normal appearance. HENT: Right Ear: Tympanic membrane, ear canal and external ear normal. There is impacted cerumen. Left Ear: Tympanic membrane, ear canal and external ear normal. There is impacted cerumen. Nose: Nose normal. Mouth/Throat: Lips: [place]. Mouth: Mucous membranes are moist. Pharynx: Oropharynx is clear. Eyes: Conjunctiva/sclera: Conjunctivae normal. Pulmonary: Effort: Pulmonary effort is normal. Lymphadenopathy: Cervical: No cervical adenopathy. Neurological: Mental Status: He is alert. {ASSESSMENT/PLAN: 1. Bilateral impacted cerumen - ICD9: 380.4, ICD10: H61.23 Ear irrigation with water and syringe performed by nursing staff, Patient tolerated well. Physicial exam revealed Bilateral cerumen impaction which was cleaned. Bilateral ear canal and TM within normal limits after ear cleaning. After the ear was cleaned, patient felt moderate relief of ear blockage. Follow up PRN, if further problems. - AMBULATORY EAR LAVAGE/IRRIGATION Nael Gilliland APRN.ASSOCIATE MANAGER -I have reviewed and updated with the patient: allergies, VS, current medications, Past Medical History,Past Surgical History,Past Family Medical History, Past Social History. - Patient education provided today - Discussed with patient medications that are indicated and how to use the medications and what the potential side effects are. - Warning signs of worsening condition explained to patient -Instructed to follow up with PCP if symptoms not improving in next 2-3 days - Patient left in stable condition after questions answered and patient verbalizes understanding - Instructed to go to Emergency Department right away with any severe worsening chest pain, shortness of breath, headache, dizziness, weakness, numbness,leg swelling , tingling, problems walking or speaking or any other concerning symptoms Differential Diagnoses - cerumen impaction is more likely for the following reason(s): suggested by HANDP - otitis externa is less likely for the following reason(s): HANDP not suggestive Nael Gilliland APRN.CNP 05/03/2025 8:43 AM Addendum ASSESSMENT/PLAN: 1. Bilateral impacted cerumen - ICD9: 380.4, ICD10: H61.23 Ear irrigation with water and syringe performed by nursing staff, Patient tolerated well. Physicial exam revealed Bilateral cerumen impaction which was cleaned. Bilateral ear canal and TM within normal limits after ear cleaning. After the ear was cleaned, patient felt moderate relief of ear blockage. Follow up PRN, if further problems. - AMBULATORY EAR LAVAGE/IRRIGATION Nael Gilliland APRN.ASSOCIATE MANAGER -I have reviewed and updated with the patient: allergies, VS, current medications, Past Medical History,Past Surgical History,Past Family Medical History, Past Social History. - Patient education provided today - Discussed with patient medications that are indicated and how to use the medications and what the potential side effects are. - Warning signs of worsening condition explained to patient -Instructed to follow up with PCP if symptoms not improving in next 2-3 days - Patient left in stable condition after questions answered and patient verbalizes understanding - Instructed to go to Emergency Department right away with any severe worsening chest pain, shortness of breath, headache, dizziness, weakness, numbness,leg swelling , tingli (more content not included)... Normal [facility] CBC panel Auto (Bld)on 04-25 Erythrocyte distribution width (RBC) [Ratio] 13.4 % 11.5 - 15.0 % [facility] Hematocrit (Bld) [Volume fraction] 39.2 % 39.0 - 51.0 % [facility] Hemoglobin (Bld) [Mass/Vol] 13.2 g/dL 13.0 - 17.0 g/dL [facility] Interpretation and review of laboratory results Normal [facility] MCH (RBC) [Entitic mass] 30.2 pg 26.0 - 34.0 pg [facility] MCHC (RBC) [Mass/Vol] 33.7 g/dL 30.5 - 36.0 g/dL [facility] MCV (RBC) [Entitic vol] 89.7 fL 80.0 - 100.0 fL [facility] Nucleated RBC (Bld) [#/Vol] NINF [facility] Platelet mean volume (Bld) [Entitic vol] 11.2 fL 9.0 - 12.7 fL [facility] Platelets (Bld) [#/Vol] 195 10*3/uL [facility] RBC (Bld) [#/Vol] 4.37 10*6/uL 4.20 - 6.0 0 m/uL [facility] WBC (Bld) [#/Vol] 10.34 10*3/uL [facility] Erythrocyte distribution width (RBC) [Ratio] 13.4 % Normal 11.5-15.0 [facility] Comment on above: Order Comment: Speci men Type: BLOOD SPECIMENOrdering Facility: [facility] Address: [address] [place] [address] Performed By: #### 5 8410-2 ####[facility] LABCLIA [id number] [address] [place] Hematocrit (Bld) [Volume fraction] 39.2 % Normal 39.0-51.0 [facility] Comment on above: Order Comment: Speci men Type: BLOOD SPECIMENOrdering Facility: [facility] Address: [address] [place] [address] Performed By: #### 5 8410-2 ####[facility] LABIA [id number] [place] [address] [place] Hemoglobin (Bld) [Mass/Vol] 13.2 g/dL Normal 13.0-17.0 [facility] Comment on above: Order Comment: Speci men Type: BLOOD SPECIMENOrdering Facility: [facility] Address: [address] [place] [address] Performed By: #### 5 8410-2 ####[facility] LABIA [id number] [place] [address] [place] MCH (RBC) [Entitic mass] 30.2 pg Normal 26.0-34.0 [facility] Comment on above: Order Comment: Speci men Type: BLOOD SPECIMENOrdering Facility: [facility] Address: [address] [place] [address] Performed By: #### 5 8410-2 ####[facility] LABIA [id number] [place] [address] [place] MCHC (RBC) [Mass/Vol] 33.7 g/dL Normal 30.5-36.0 [facility] Comment on above: Order Comment: Speci men Type: BLOOD SPECIMENOrdering Facility: [facility] Address: [address] [place] [address] Performed By: #### 5 8410-2 ####[facility] LABIA [id number] [place] [address] [place] MCV (RBC) [Entitic vol] 89.7 fL Normal 80.0-100.0 [facility] Comment on above: Order Comment: Speci men Type: BLOOD SPECIMENOrdering Facility: [facility] Address: [address] [place] [address] Performed By: #### 5 8410-2 ####[facility] LABCLIA [id number] [address], [facility] [place] Nucleated RBC (Bld) [#/Vol] 10*3/uL Normal <0.01 [facility] Comment on above: Order Comment: Speci men Type: BLOOD SPECIMENOrdering Facility: [facility] Address: [address] [place] [address] Performed By: #### 5 8410-2 ####[facility] LABIA [id number] [address], [place] [address] [place] Platelet mean volume (Bld) [Entitic vol] 11.2 fL Normal 9.0-12.7 [facility] Comment on above: Order Comment: Speci men Type: BLOOD SPECIMENOrdering Facility: [facility] Address: [address] [place] [address] Performed By: #### 5 8410-2 ####[facility] LABIA [id number] [place] [address] [place] Platelets (Bld) [#/Vol] 195 10*3/uL Normal 150-400 [facility] Comment on above: Order Comment: Speci men Type: BLOOD SPECIMENOrdering Facility: [facility] Address: [address] [place] [address] Performed By: #### 5 8410-2 ####[facility] LABIA [id number] [place] [address] [place] RBC (Bld) [#/Vol] 4.37 10*6/uL Normal 4.20-6.00 [facility] Comment on above: Order Comment: Speci men Type: BLOOD SPECIMENOrdering Facility: [facility] Address: [address] [place] [address] Performed By: #### 5 8410-2 ####[facility] LABIA [id number] [place] [id number] [place] WBC (Bld) [#/Vol] 10.34 10*3/uL Normal 3.70-11.00 [facility] Comment on above: Order Comment: Speci men Type: BLOOD SPECIMENOrdering Facility: [facility] Address: [address] [place] [address] Performed By: #### 5 8410-2 ####[facility] LABCLIA [id number] [place] [id number] [facility] CNOVon 04-25-2025 CNOV Office Visit (INTMWS ) -------- DAYBJ WEBB ([id number]) 1940 M Date Time Provider Department 04/25/25 3:20 PM QUETA DENIS INTMWS During your visit today, we recorded the following information about you: Pulse Respiration Blood pressure Weight 81/minute 16/minute 122/86 89.4 kg Queta Denis, [employer]URANT DISTRICT MANAGER.ASSOCIATE MANAGER 04/25/2025 3:53 PM Signed We discussed your concerns about Bj's unsteadiness and changes in his walking: - Based on today's evaluation, I believe these changes are likely related to aging and his dementia. There are no signs of acute issues such as infection or injury. - Physical therapy is not recommended at this time, as it would not be effective due to his dementia and difficulty following instructions. - Continue monitoring his walking and balance. If he begins to fall, has near falls, or shows significant worsening, please let us know. We discussed Bj's earwax buildup and hearing concerns: - I recommend using Debrox (or a similar uidv-pka-jmuvwoi earwax softening drop) in his ears as directed on the package. This will help soften the wax. - He has an appointment for routine follow-up with Dr. Melendez on 05/09, please don't start Debrox until one week before the appointment and they can attempt to clean out his ears at that time We discussed Bj's overall health: - His urine test today showed no signs of infection or other concerns. - Blood work was completed to check his thyroid and other factors. If there are any critical results, you will be notified. Otherwise, I will review the results and follow up with you on Wednesday. If you have any additional questions or concerns, please feel free to reach out. Queta Denis, ISABELA.ASSOCIATE MANAGER 04/25/2025 4:14 PM Signed CC: Patient presents with: Balance/Incoordination: Unsteady gait HPI Recording using [employer] software for draft documentation of the visit was discussed with the patient/authorized tour sales representative; all questions welcomed and answered. Patient/authorized tour sales representative agreed to proceed Bj Day is an 84-year-old male, with a history of dementia, for evaluation of unsteady gait and possible cerumen impaction. He is accompanied by a caregiver, who is providing history on his behalf. Bj's caregiver reports a recent onset of unsteady gait, described as a shuffling walk, which has acutely worsened over the past week. This change in gait was first noticed after a podiatry visit last month. Bj has not experienced any falls or near falls, and there have been no observed changes in speech, facial drooping, or difficulty with fine motor tasks. He denies any pain in his legs or head and has not required the use of a walker or cane. There is no history of hip fractures. Bj has a history of nocturnal confusion, which has not acutely worsened. He has been sleeping more than usual over the past week. There are no new medications. Bj has a history of prostate issues but denies urinary incontinence and is urinating normally. He has not been urinating more frequently than usual. Bj's caregiver also reports concerns about possible cerumen impaction, noting that Bj has been less responsive to auditory stimuli. There have been no observed behaviors such as digging at the ears. 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 MEDICATIONS amLODIPine (NORVASC) 5 mg tablet Take 1 tablet by mouth once daily. For hypertension. hydroCHLOROthiazide 12.5 mg capsule Take 1 capsule by mouth once daily. pravastatin (PRAVACHOL) 10 mg tablet Take 1 tablet by mouth daily at bedtime. For high cholesterol. memantine (NAMENDA) 10 mg tablet Take 1 tablet by mouth two times a day. melatonin 3 mg tablet Take 1 tablet at 7PM nightly. mineral oil/hydrophil petrolatum (AQUAPHOR) oint Apply 1 application to affected area twice daily. For dry skin/eczema of right hand. FAMILY HISTORY Problem Relation Age of Onset No Known Problems Sister Cancer Mother Heart Father Social History Tobacco Use Smoking status: Every Day Types: Pipe Smokeless tobacco: Never Tobacco comments: 5-6 pipes per day Vaping Use Vaping status: Never Used Substance Use Topics Al (more content not included)... Normal [facility] HbA1c (Bld)on 04-25-2025 Average glucose Estimated from glycated hemoglobin (Bld) [Mass/Vol] 128 mg/dL Normal [facility] Comment on above: Order Comment: Speci men Type: BLOOD SPECIMENOrdering Facility: [facility] Address: [address] [place] [address] Result Comment: eAG: (Estimated average glucose) is a calculated value from HgbA1c and is tour sales representative of the average blood glucose level in the last 2-3 month period. Performed By: #### 5 5454-3 ####[facility] LABCLIA [id number] [place] [address] [place] HbA1c (Bld) [Mass fraction] 6.1 % High 4.3-5.6 [facility] Comment on above: Order Comment: Speci men Type: BLOOD SPECIMENOrdering Facility: [facility] Address: [address] [place] [address] Result Comment: Amer [place] Diabetes Association guidelines indicate that patients with HgbA1c in the range 5.7-6.4% are at increased risk for development of diabetes, and intervention by lifestyle modification may be beneficial. HgbA1c greater or equal to 6.5% is considered diagnostic of diabetes. Performed By: #### 5 5454-3 ####[facility] LABCLIA [id number] [place] [address] [place] TSH SerPl-aCncon 04-25-2025 TSH Qn 2.990 m[IU]/L Normal 0.270-4.200 [facility] Comment on above: Order Comment: Speci men Type: BLOOD SPECIMENOrdering Facility: [facility] Address: [address] [place] [address] Performed By: #### 3 016-3 ####[facility] LABCLIA [id number] [address] [place] UA DIP, URINE (POC)on 2024 BILIRUBIN UA (POCT) Negative Negative [facility] CLARITY UA (POCT) Clear [facility] COLOR UA (POCT) Yellow [facility] GLUCOSE UA (POCT) Negative Negative mg/dL [facility] Hemoglobin Ql (U) Negative Negative [facility] KETONE UA (POCT) Negative Negative mg/dL [facility] LEUKOCYTES UA (POCT) Negative Negative [facility] NITRITE UA (POCT) Negative [facility] PH UA (POCT) 5.5 4.5 - 8.0 [facility] Protein Ql (U) Negative Negative mg/dL [facility] SPECIFIC GRAVITY UA (POCT) 1.025 1.005 - 1.030 [facility] UROBILINOGEN UA (POCT) 0.2 Bette l E.U./dL [facility] Location:[facility], [address] [place] [address], [place], [place], [id number] [place] [address] POINT OF CARE [facility] CNOVon 04-03-2025 CNOV Office Visit (PODIWS ) -------- BJ DAY ([id number]) 1940 M Date Time Provider Department 04/03/25 1:30 PM KAITLYNN GARCIA During your visit today, we recorded the following information about you: Nguyen Johnson, YAMILETH 04/03/2025 1:30 PM Signed Patient presents with: Left Foot - New, foot check Right Foot - New, foot check Patient presents for foot check. Not a diabetic. Denies any pain to feet. Does have some callouses to bilateral feet as well as bilateral 3rd toes. Kaitlynn Garcia 04/03/2025 1:30 PM Signed Initial Podiatric Office Visit: Chief Complaint: This 84 year old male who presents with chief complaint:callus and dystrophic toenails HPI Patient presents to clinic for evaluation of b/l feet Denies any major issues Has callus and dystrophic toenails of both feet requesting debridement No other complaints PAIN EVALUATION No data found in the last 1 encounters. 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 For hypertension. hydroCHLOROthiazide 12.5 mg capsule Take 1 capsule by mouth once daily. pravastatin (PRAVACHOL) 10 mg tablet Take 1 tablet by mouth daily at bedtime. For high cholesterol. memantine (NAMENDA) 10 mg tablet Take 1 tablet by mouth two times a day. melatonin 3 mg tablet Take 1 tablet at 7PM nightly. mineral oil/hydrophil petrolatum (AQUAPHOR) oint Apply 1 application to affected area twice daily. For dry skin/eczema of right hand. No current facility-administered medications for this visit. ALLERGIES No Known Allergies PAST SURGICAL HISTORY Procedure Laterality Date COLONOSCOPY FLX DX W/COLLJ SPEC WHEN PFRMD 08/17/2011 Colonoscopy RADIATION THERAPY 2009 prostate REMOVE CATARACT, INSERT LENS,EX 2011 lt and rt FAMILY HISTORY Problem Relation Age of Onset No Known Problems Sister Cancer Mother Heart Father Social History Tobacco Use Smoking status: Every Day Types: Pipe Smokeless tobacco: Never Tobacco comments: 5-6 pipes per day Vaping Use Vaping status: Never Used Substance Use Topics Alcohol use: No Drug use: No REVIEW OF SYSTEMS GENERAL: Negative for Malaise, significant weight loss, fever RESPIRATORY: Negative for cough, wheezing and shortness of breath CARDIOVASCULAR: Negative for chest pain, leg swelling and palpitations GI: Negative for abdominal discomfort, blood in stools or black stools and change in bowel habits : Negative for dysuria, frequency and incontinence MUSCULOSKELETAL: Negative for joint pain or swelling, back pain, and muscle pain. SKIN: Negative for lesions, rash, and itching. HEMATOLOGY/LYMPHOLOGY Negative for prolonged bleeding, bruising easily, and swollen nodes. ENDOCRINE: Negative for cold or heat intolerance, polyuria, polydipsia and goiter. NEURO: negative Physical Exam: Constitutional: Pt is a well developed 84 year old male who is alert, oriented and cooperative Eyes: Following during examination. No redness or drainage. Respiratory: RR normal and nonlabored. Even breathing. No evidence of distress or shortness of breath. Psychology: Patient is engaged during conversation. Normal affect and mood. Does not appear depressed or anxious during encounter. Vascular: Dorsalis pedis and posterior tibial pulses nonpalpable b/l Capillary Fill time < 5 seconds to digits 1-5 b/l Skin temperature warm to cool proximal to distal b/l Hair growth absent to digits Neurological: decreased light touch/epicritic sensation Vibratory sensation decreased b/l decreased protective sensation + significant neurological deficits Dermatological: Nails 1-5 b/l appear thick, discolored, dystrophic, painful. Webspaces clean and dry 1-4 b/l. Skin appears well hydrated and supple. good color, texture, turgor. No open lesions present. Callus present to distal 3rd toe b/l. No ulceration present Musculoskeletal/Orthopae dic: Patient has no pain to palpation of b/l feet Foot type is neutrla structurally AJ ROM is decreased with knee extended and flexed 1st MPJ is decreased when loaded and no pain or crepitus are noted with ROM. MTJ, STJ are full and free of pain and crepitus. +5/5 muscle strength dorsiflexion, plantarflexion, inversion, eversion b/l Radiographs: n/a ASSESSMENT: (B35.1) Onychomycosis (primary encounter (more content not included)... Normal [facility] CBC panel Auto (Bld)on 11-09 Erythrocyte distribution width (RBC) [Ratio] 12.9 % Normal 11.5-15.0 [facility] Comment on above: Order Comment: Speci men Type: BLOOD SPECIMENOrdering Facility: [facility] Address: [address] [place] [address] Performed By: #### 5 8410-2 ####[facility] LABCLIA [id number] [place] [address] [place] Hematocrit (Bld) [Volume fraction] 39.7 % Normal 39.0-51.0 [facility] Comment on above: Order Comment: Speci men Type: BLOOD SPECIMENOrdering Facility: [facility] Address: [address] [place] [address] Performed By: #### 5 8410-2 ####[facility] LABCLIA [id number] [place] [address] [place] Hemoglobin (Bld) [Mass/Vol] 13.1 g/dL Normal 13.0-17.0 [facility] Comment on above: Order Comment: Speci men Type: BLOOD SPECIMENOrdering Facility: [facility] Address: [address] [place] [address] Performed By: #### 5 8410-2 ####[facility] LABCLIA [id number] [place] [address] [place] MCH (RBC) [Entitic mass] 30.1 pg Normal 26.0-34.0 [facility] Comment on above: Order Comment: Speci men Type: BLOOD SPECIMENOrdering Facility: [facility] Address: [address] [place] [address] Performed By: #### 5 8410-2 ####[facility] LABIA [id number] [place] [address] [place] MCHC (RBC) [Mass/Vol] 33.0 g/dL Normal 30.5-36.0 [facility] Comment on above: Order Comment: Speci men Type: BLOOD SPECIMENOrdering Facility: [facility] Address: [address] [place] [address] Performed By: #### 5 8410-2 ####[facility] [id number] [place] [address] [place] MCV (RBC) [Entitic vol] 91.3 fL Normal 80.0-100.0 [facility] Comment on above: Order Comment: Speci men Type: BLOOD SPECIMENOrdering Facility: [facility] Address: [address] [place] [address] Performed By: #### 5 8410-2 ####[facility] [id number] [place] [address] [place] Nucleated RBC (Bld) [#/Vol] 10*3/uL Normal <0.01 [facility] Comment on above: Order Comment: Speci men Type: BLOOD SPECIMENOrdering Facility: [facility] Address: [address] [place] [address] Performed By: #### 5 8410-2 ####[facility] [id number] [place] [address] [place] Platelet mean volume (Bld) [Entitic vol] 11.0 fL Normal 9.0-12.7 [facility] Comment on above: Order Comment: Speci men Type: BLOOD SPECIMENOrdering Facility: [facility] Address: [address] [place] [address] Performed By: #### 5 8410-2 ####[facility] LABCLIA [id number] [address] [address] [place] Platelets (Bld) [#/Vol] 196 10*3/uL Normal 150-400 [facility] Comment on above: Order Comment: Speci men Type: BLOOD SPECIMENOrdering Facility: [facility] Address: [address] [place] [address] Performed By: #### 5 8410-2 ####[facility] LABCLIA [id number] [place] [address] [place] RBC (Bld) [#/Vol] 4.35 10*6/uL Normal 4.20-6.00 [facility] Comment on above: Order Comment: Speci men Type: BLOOD SPECIMENOrdering Facility: [facility] Address: [address] [place] [address] Performed By: #### 5 8410-2 ####[facility] LABIA [id number] [place] [address] [place] WBC (Bld) [#/Vol] 10.05 10*3/uL Normal 3.70-11.00 [facility] Comment on above: Order Comment: Speci men Type: BLOOD SPECIMENOrdering Facility: [facility] Address: [address] [place] [address] Performed By: #### 5 8410-2 ####[facility] LABIA [id number] [place] [id number] [place] Comprehensive metabolic 2000 panelon 11-09-2024 Albumin [Mass/Vol] 4.1 g/dL Normal 3.9-4.9 [facility] Comment on above: Order Comment: Speci men Type: BLOOD SPECIMENOrdering Facility: [facility] Address: [address] [place] [address] Performed By: #### 2 4323-8, 08354-1 ####[facility] LABIA [id number] [place] [address] [place] ALP [Catalytic activity/Vol] 93 U/L Normal 38-113 [facility] Comment on above: Order Comment: Speci men Type: BLOOD SPECIMENOrdering Facility: [facility] Address: [address] [place] [address] Performed By: #### 2 4323-8, 58996-6 ####[facility] LABCLIA [id number] [place] [address] [place] ALT [Catalytic activity/Vol] 19 U/L Normal 10-54 [facility] Comment on above: Order Comment: Speci men Type: BLOOD SPECIMENOrdering Facility: [facility] Address: [address] [place] [address] Performed By: #### 2 4323-8, 65804-5 ####[facility] LABCLIA [id number] [place] [address] [place] Anion gap [Moles/Vol] 11 mmol/L Normal 8-15 [facility] Comment on above: Order Comment: Speci men Type: BLOOD SPECIMENOrdering Facility: [facility] Address: [address] [place] [address] Performed By: #### 2 4323-8, 71941-0 ####[facility] LABCLIA [id number] [place] [address] [place] AST [Catalytic activity/Vol] 21 U/L Normal 14-40 [facility] Comment on above: Order Comment: Speci men Type: BLOOD SPECIMENOrdering Facility: [facility] Address: [address] [place], [place] [id number] Performed By: #### 2 4323-8, 56580-9 ####[facility] LABCLIA [id number] [place] [id number] [place] Bilirubin [Mass/Vol] 0.3 mg/dL Normal 0.2-1.3 [facility] Comment on above: Order Comment: Speci men Type: BLOOD SPECIMENOrdering Facility: [facility] Address: [address] [place] [id number] Performed By: #### 2 4323-8, 88701-0 ####[facility] LABCLIA [id number] [address] [address] [place] Calcium [Mass/Vol] 9.4 mg/dL Normal 8.5-10.2 [facility] Comment on above: Order Comment: Speci men Type: BLOOD SPECIMENOrdering Facility: [facility] Address: [address] [place], [place] [address] Performed By: #### 2 4323-8, 47171-7 ####[facility] LABCLIA [id number] [place] [address] [place] Chloride [Moles/Vol] 105 mmol/L Normal 98-107 [facility] Comment on above: Order Comment: Speci men Type: BLOOD SPECIMENOrdering Facility: [facility] Address: [address] [place], [place] [address] Performed By: #### 2 4323-8, 76789-4 ####[facility] LABCLIA [id number] [place] [address] [place] CO2 [Moles/Vol] 24 mmol/L Normal 22-30 [facility] Comment on above: Order Comment: Speci men Type: BLOOD SPECIMENOrdering Facility: [facility] Address: [address] [id number] Performed By: #### 2 4323-8, 30918-2 ####[facility] LABCLIA [id number] [place] [address] [place] Creatinine [Mass/Vol] 0.89 mg/dL Normal 0.73-1.22 [facility] Comment on above: Order Comment: Speci men Type: BLOOD SPECIMENOrdering Facility: [facility] Address: [address] [place], [place] [id number] Performed By: #### 2 4323-8, 18683-2 ####[facility] LABCLIA [id number] [place] [address] [place] Creatinine and Glomerular filtration rate.predicted panel (S/P/Bld) 83 mL/min/1.73m??? Normal >=60 [facility] Comment on above: Order Comment: Tanvir farfan Type: BLOOD SPECIMENOrdering Facility: [facility] Address: [address] [place] [address] Result Comment: Analisa mated Glomerular Filtration Rate (eGFR) is calculated using the 2020 CKD-EPI creatinine equation. This equation utilizes serum creatinine, sex, and age as parameters. The creatinine assay has traceable calibration to isotope dilution-mass spectrometry. Refer to KDIGO guidelines for clinical interpretation. In patients with unstable renal function, e.g. those with acute kidney injury, the eGFR may not accurately reflect actual GFR. Performed By: #### 2 4323-8, 51221-6 ####[facility] LABCLIA [id number] [place] [address] [place] Glucose [Mass/Vol] 115 mg/dL High 74-99 [facility] Comment on above: Order Comment: Tanvir farfan Type: BLOOD SPECIMENOrdering Facility: [facility] Address: [address] [place] [address] Result Comment: The [place] Diabetes Association (ADA) provides guidance for cutoff values for fasting glucose and random glucose. The ADA defines fasting as no caloric intake for at least 8 hours. Fasting plasma glucose results between 100 to 125 mg/dL indicate increased risk for diabetes (prediabetes). Fasting plasma glucose results greater than or equal to 126 mg/dL meet the criteria for diagnosis of diabetes. In the absence of unequivocal hyperglycemia, results should be confirmed by repeat testing. In a patient with classic symptoms of hyperglycemia or hyperglycemic crisis, random plasma glucose results greater than or equal to 200 mg/dL meet the criteria for diagnosis of diabetes. Reference: Standards of Medical Care in Diabetes 2016, [place] Diabetes Association. Diabetes Care. 2016.39(Suppl 1). Performed By: #### 2 4323-8, 71491-6 ####[facility] LABCLIA [id number] [place] [address] [place] Potassium [Moles/Vol] 3.8 mmol/L Normal 3.7-5.1 [facility] Comment on above: Order Comment: Speci men Type: BLOOD SPECIMENOrdering Facility: [facility] Address: [address] [place] [address] Performed By: #### 2 4323-8, 80401-2 ####[facility] LABIA [id number] [place] [address] [place] Protein [Mass/Vol] 7.6 g/dL Normal 6.3-8.0 [facility] Comment on above: Order Comment: Speci men Type: BLOOD SPECIMENOrdering Facility: [facility] Address: [address] [place] [address] Performed By: #### 2 4323-8, 75731-5 ####[facility] [id number] [place] [address] [place] Sodium [Moles/Vol] 140 mmol/L Normal 136-144 [facility] Comment on above: Order Comment: Speci men Type: BLOOD SPECIMENOrdering Facility: [facility] Address: [address] [place] [address] Performed By: #### 2 4323-8, 33598-7 ####[facility] LABIA [id number] [place] [address] [place] Urea nitrogen [Mass/Vol] 18 mg/dL Normal 9-24 [facility] Comment on above: Order Comment: Speci men Type: BLOOD SPECIMENOrdering Facility: [facility] Address: [address] [place] [address] Performed By: #### 2 4323-8, 44704-1 ####[facility] LABIA [id number] [address] [id number] [place] Lipid 1996 panelon 5 Cholesterol [Mass/Vol] 169 mg/dL Normal <200 [facility] Comment on above: Order Comment: Tanvir farfan Type: BLOOD SPECIMENOrdering Facility: [facility] Address: [address] [place] [address] Result Comment: <200 mg/dL, Desirable 200-239 mg/dL, Borderline high >239 mg/dL, High Performed By: #### 2 4323-8, 08929-2 ####[facility] LABCLIA [id number] [place] [address] [place] Cholesterol in HDL [Mass/Vol] 42 mg/dL Normal >39 [facility] Comment on above: Order Comment: Tanvir farfan Type: BLOOD SPECIMENOrdering Facility: [facility] Address: [address] [place] [address] Result Comment: 40-5 9 mg/dL, Acceptable >59 mg/dL, High: Negative risk factor for coronary heart disease <40 mg/dL, Low: Positive risk factor for coronary heart disease Performed By: #### 2 4323-8, 16219-4 ####[facility] LABCLIA [id number] [place] [address] [place] Cholesterol in LDL [Mass/Vol] 110 mg/dL High <100 [facility] Comment on above: Order Comment: Tanvir naheed Type: BLOOD SPECIMENOrdering Facility: [facility] Address: [address] [place] [address] Result Comment: <100 mg/dL, Optimal 100-129 mg/dL, Near optimal/above optimal 130-159 mg/dL, Borderline high 160-189 mg/dL, High >189 mg/dL, Very high Secondary prevention optimal LDL Cholesterol levels are recommended to be < 70 mg/dL Performed By: #### 2 4323-8, 07164-1 ####[facility] LABCLIA [id number] [place] [address] [place] Cholesterol in LDL/Cholesterol in HDL [Mass ratio] 2.62 {ratio} High <2.54 [facility] Comment on above: Order Comment: Speci men Type: BLOOD SPECIMENOrdering Facility: [facility] Address: [address] [place] [address] Result Comment: Ninfa mata: 1. National Cholesterol Education Program ATP III Guideline At-A-Glance Quick Desk Reference: National Heart, Lung, and Blood [place]. National Institutes of Health. 2001: NIH Publication No. 01-3305. 2. An International Atherosclerosis Society position paper: global recommendations for the management of dyslipidemia: executive summary, Atherosclerosis. 2014: 232(2):410-413. Performed By: #### 2 4323-8, 67398-6 ####[facility] LABCLIA [id number] [place] [address] [place] Cholesterol in VLDL [Mass/Vol] 17 mg/dL Normal <30 [facility] Comment on above: Order Comment: Tanvir naheed Type: BLOOD SPECIMENOrdering Facility: [facility] Address: [address] [place] [address] Performed By: #### 2 4323-8, 84812-9 ####[facility] LABCLIA [id number] [place] [address] [place] Cholesterol non HDL [Mass/Vol] 127 mg/dL Normal <130 [facility] Comment on above: Order Comment: Tanvir naheed Type: BLOOD SPECIMENOrdering Facility: [facility] Address: [address] [place] [address] Result Comment: <130 mg/dL, Optimal 130-159 mg/dL, Near optimal/above optimal 160-189 mg/dL, Borderline high 190-219 mg/dL, High >219 mg/dL, Very high Secondary prevention optimal non HDL Cholesterol levels are recommended to be <100 mg/dL Performed By: #### 2 4323-8, 56989-1 ####[facility] LABCLIA [id number] [place] [address] [place] Cholesterol.total/Chol esterol in HDL [Mass ratio] 4.02 {ratio} Normal <5.10 [facility] Comment on above: Order Comment: Speci men Type: BLOOD SPECIMENOrdering Facility: [facility] Address: [address] [place] [address] Performed By: #### 2 4323-8, 33019-7 ####[facility] LABCLIA [id number] [place] [address] [place] FASTING TIME 12 hrs Normal [facility] Comment on above: Order Comment: Speci men Type: BLOOD SPECIMENOrdering Facility: [facility] Address: [address] [place] [address] Performed By: #### 2 4323-8, 25883-4 ####[facility] LABCLIA [id number] [place] [address] [place] Triglyceride [Mass/Vol] 87 mg/dL Normal <150 [facility] Comment on above: Order Comment: Speci men Type: BLOOD SPECIMENOrdering Facility: [facility] Address: [address] [place] [address] Result Comment: <150 mg/dL, Normal 150-199 mg/dL, Borderline high 200-499 mg/dL, High >499 mg/dL, Very high Performed By: #### 2 4323-8, 07846-9 ####[facility] LABCLIA [id number] [place] [address] [place] CNOVon 11-08-2024 CNOV Office Visit (INTMWS ) -------- BJ DAY ([id number]) 1940 M Date Time Provider Department 11/08/24 11:00 AM QUETA DENIS INTMWS During your visit today, we recorded the following information about you: Pulse Respiration Blood pressure Weight 84/minute 12/minute 134/74 88.5 kg Height 1.68 m Queta Denis APRN.CNP 11/08/2024 11:34 AM Signed Bj Day is a 84 year old male here for a Medicare wellness visit. Medicare Health Risk Assessment General Health Very good Exercise: Minutes/Day 0 min Exercise: Days/Week 0 days Alcohol: Daily Use Never Alcohol: Drinks/Day Patient does not drink Alcohol: 6 or more drinks Never Feel off balance No Concerns: Teeth/Dentures No Concerns: Sexual function No Troubled by feelings None of the above Frequency: Eating healthy diet Nearly every day ADLs requiring help Grocery shopping; Cooking; Bathing; Driving; Handling finances; Taking medications Safety precautions in home/vehicle Yes Smoke, vape, chews tobacco Yes, but I'm not ready to quit Difficulty hearing Yes Difficulty seeing No Current Providers Specialists: I have reviewed specialist-related care of the patient in the medical record. Current care team: Patient Care Team: Javy Melendez MD as PCP - General (Internal Medicine) Queta Denis APRN.CNP as [place] (Internal Medicine) Ophthalmology- [facility] Neurology- Dr. Bronson Medical/Family history review Reviewed and updated problem list, medical/surgical/family/ social history, medications, and allergies. Opioid use review Opioid Medications (last 90 days) No data to display Anxiety/Depression screening PHQ-2 Score: 0 (Lower risk for depression) REID-2 Score: 0 (Lower risk for anxiety) Recommendation: no further intervention at this time Cognitive screening Cognitive screening reviewed and Patient has known cognitive impairment. Functional Observation Was the patient's Timed Up AND Go test unsteady or >= 12 seconds? No Advance Care Planning Patient was not able to provide a surrogate decision maker or written advance directives Measurements BP 134/74 Pulse 84 Resp 12 Ht 168 cm (5' 6.14) Wt 88.5 kg (195 lb 1.7 oz) SpO2 99% BMI 31.36 kg/m? Vision Screening: Follows with optometry/ophthalmology Assessment/Plan Medicare annual wellness visit, subsequent (Z00.00) - Counseled on healthy diet and regular exercise - Fall avoidance information provided - Personalized prevention plan provided - Discussed need for and benefit of weight loss. BMI 31.36 kg/(m2) Additional Concerns The following concerns were also discussed with the patient: Cognitive decline: he was started on Namenda by neurologist for possible dementia. He had CT brain and was supposed to follow-up this month but no showed appointment . Caregiver denies any behavioral issues or further cognitive decline that she is aware of. HTN-Medication changes:No Taking all medications as prescribed: Yes Side effects: No Home BP's: No Denies: headache, chest pain, palpitations, dyspnea, and peripheral edema. Last 3 Encounter BP Readings: Date: BP: 11/08/2024 134/74 05/29/2024 124/70 05/26/2024 152/78 PHYSICAL EXAM BP 134/74 Pulse 84 Resp 12 Ht 168 cm (5' 6.14) Wt 88.5 kg (195 lb 1.7 oz) SpO2 99% BMI 31.36 kg/m? GENERAL: well appearing, alert, in no acute distress CARDIOVASCULAR: regular rate and rhythm. No murmur, rubs or gallops. PULMONARY: clear to auscultation, no wheezing, rhonchi, or crackles ASSESSMENT/PLAN: 1. Medicare annual wellness visit, subsequent - ICD9: V70.0, ICD10: Z00.00 (primary diagnosis) See medicare wellness plan 2. Primary hypertension - ICD9: 401.9, ICD10: I10 - Controlled - Continue current medications - Recommend home blood pressure monitoring, to bring results to next visit - Encouraged sodium restriction, DASH or Mediterranean diet - Recommend regular aerobic exercise - COMPREHENSIVE METABOLIC PANEL - COMPLETE BLOOD COUNT 3. Hyperlipidemia, unspecified hyperlipidemia type - ICD9: 272.4, ICD10: E78.5 - Control undetermined, due for labs - Continue current medications - LIPID PANEL BASIC - COMPREHENSIVE METABOLIC PANEL 4. Unspecified intellectual disabilities - ICD9: 319, ICD10: F79 stable 5. Cognitive decline - ICD9: 294.9, ICD10: R41.89 Stable 6. Screening for depression - ICD9: V79.0, ICD10: Z13.31 - DEPRESSION SCREENING 7. Encounter for screening examination for other mental health and behavioral disorders - ICD9: V79.8, ICD10: Z13.39 - ANXIETY SCREENING HEATH Matthews Naz M, APRN.CNP 11/08/2024 11:10 AM Addendum Screening schedule The following prevention plan is recommended: Shingrix Vaccine(1 of 2) Never done DTaP,Tdap,Td Vaccine(1 - Tdap) due on 05/08/2011 RSV Vaccine(1 - 1-dose 75+ series) (more content not included)... Normal [facility] Basic Metabolic Profile (BMP )on 07-24-2024 BUN/CRE 15.7 RATIO Normal 10-20 [facility] Comment on above: Performed By: #### L 100.0100, L500.2500, L505.5000 #### [facility] [address] [place], [address] CA,Total 9.1 mg/dL Normal 8.5-10.1 [facility] Comment on above: Performed By: #### L 100.0100, L500.2500, L505.5000 #### [facility] [address] [place], [address] Chloride [Moles/Vol] 104 mmol/L Normal 98-107 [facility] Comment on above: Performed By: #### L 100.0100, L500.2500, L505.5000 #### [facility] [address] [place], [address] CO2 [Moles/Vol] 29.0 mmol/L Normal 21.0-32.0 [facility] Comment on above: Performed By: #### L 100.0100, L500.2500, L505.5000 #### [facility] [address] [place], [address] Creatinine [Mass/Vol] 1.15 mg/dL Normal 0.70-1.30 [facility] Comment on above: Result Comment: The validity of the calculated GFR GFRAA in patients over 70 years has not been determined. Clinical correlation is essential. Performed By: #### L 100.0100, L500.2500, L505.5000 #### [facility] [address] [place], [address] ECRCL 48.61 ml/min Normal [facility] Comment on above: Performed By: #### L 100.0100, L500.2500, L505.5000 #### [facility] [address] [place], [address] EST GFR - AA 78 mL/min Normal >60 [facility] Comment on above: Result Comment: Afri can [place] GFR Calc Performed By: #### L 100.0100, L500.2500, L505.5000 #### [facility] [address] [place], [address] GAP 7 Normal 5-15 [facility] Comment on above: Performed By: #### L 100.0100, L500.2500, L505.5000 #### [facility] [address] [place], [address] GFR/1.73 sq M.predicted among non-blacks MDRD (S/P/Bld) [Vol rate/Area] 64 mL/min/{1.73_m2} Normal >60 [facility] Comment on above: Result Comment: Non- GFR Calc Performed By: #### L 100.0100, L500.2500, L505.5000 #### [facility] [address] [place], [address] Glucose [Mass/Vol] 139 mg/dL High 74-106 [facility] Comment on above: Result Comment: Fast ing Glucose result greater than or equal to 126 mg/dL suggests DIABETES MELLITUS per A.D.A. criteria. Performed By: #### L 100.0100, L500.2500, L505.5000 #### [facility] [address] [place], [address] Potassium [Moles/Vol] 3.4 mmol/L Low 3.5-5.1 [facility] Comment on above: Performed By: #### L 100.0100, L500.2500, L505.5000 #### [facility] [address] [place], [address] Sodium [Moles/Vol] 140 mmol/L Normal 136-145 [facility] Comment on above: Performed By: #### L 100.0100, L500.2500, L505.5000 #### [facility] [address] [place], [address] Urea nitrogen [Mass/Vol] 18 mg/dL Normal 7-18 [facility] Comment on above: Performed By: #### L 100.0100, L500.2500, L505.5000 #### [facility] [address] [place], [address] CBC W/Diff, Automatedon - 0-2023 Absolute Lymph 4.74 X10 3/uL High 0.83-4.51 [facility] Comment on above: Performed By: #### L 100.0100, L500.2500, L505.5000 #### [facility] [address] [place], [address] Absolute Neut 4.1 X10 3/uL Normal 2.0-7.7 [facility] Comment on above: Performed By: #### L 100.0100, L500.2500, L505.5000 #### [facility] [address] [place], [address] Basophils/100 WBC (Bld) 0.7 % Normal 0-1 [facility] Comment on above: Performed By: #### L 100.0100, L500.2500, L505.5000 #### [facility] [address] [place], [address] Eosinophils/100 WBC (Bld) 3.9 % Normal 0-5 [facility] Comment on above: Performed By: #### L 100.0100, L500.2500, L505.5000 #### [facility] [address] [place], [address] Erythrocyte distribution width (RBC) [Ratio] 13.3 % Normal 11.6-14.6 [facility] Comment on above: Performed By: #### L 100.0100, L500.2500, L505.5000 #### [facility] [address] [place], [address] Hematocrit (Bld) [Volume fraction] 37.8 % Low 40-54 [facility] Comment on above: Performed By: #### L 100.0100, L500.2500, L505.5000 #### [facility] [address] [place], [address] Hemoglobin (Bld) [Mass/Vol] 12.7 g/dL Low 13.0-16.5 [facility] Comment on above: Performed By: #### L 100.0100, L500.2500, L505.5000 #### [facility] [address] [place], [address] IG% 0.300 Normal 0.0-0.9 [facility] Comment on above: Result Comment: IG% - Immature Granulocytes (promyelocytes, myelocytes and metamyelocytes) > 1% indicates that a LEFT SHIFT is Present. Performed By: #### L 100.0100, L500.2500, L505.5000 #### [facility] [address] [place], [address] Lymphocytes/100 WBC (Bld) 46.2 % High 19-41 [facility] Comment on above: Performed By: #### L 100.0100, L500.2500, L505.5000 #### [facility] [address] [place], [address] MCH (RBC) [Entitic mass] 31.1 pg Normal 27.0-32.0 [facility] Comment on above: Performed By: #### L 100.0100, L500.2500, L505.5000 #### [facility] [address] [place], [address] MCHC (RBC) [Mass/Vol] 33.6 g/dL Normal 32-36 [facility] Comment on above: Performed By: #### L 100.0100, L500.2500, L505.5000 #### [facility] [address] [place], [address] MCV (RBC) [Entitic vol] 92.4 fL Normal 80-94 [facility] Comment on above: Performed By: #### L 100.0100, L500.2500, L505.5000 #### [facility] [address] [place], [address] Monocytes/100 WBC (Bld) 9.4 % Normal 0-10 [facility] Comment on above: Performed By: #### L 100.0100, L500.2500, L505.5000 #### [facility] [address] [place], [address] Neutrophils/100 WBC (Bld) 39.5 % Low 47-70 [facility] Comment on above: Performed By: #### L 100.0100, L500.2500, L505.5000 #### [facility] [address] [place], [address] Nucleated RBC (Bld) [#/Vol] 0 10*3/uL Normal 0-5 [facility] Comment on above: Performed By: #### L 100.0100, L500.2500, L505.5000 #### [facility] [address] [place], [address] Platelet mean volume (Bld) [Entitic vol] 10.6 fL Normal 6.2-12.0 [facility] Comment on above: Performed By: #### L 100.0100, L500.2500, L505.5000 #### [facility] [address] [place], [address] Platelets (Bld) [#/Vol] 178 10*3/uL Normal 150-450 [facility] Comment on above: Performed By: #### L 100.0100, L500.2500, L505.5000 #### [facility] [address] [place], [address] RBC (Bld) [#/Vol] 4.09 10*6/uL Low 4.6-6.2 [facility] Comment on above: Performed By: #### L 100.0100, L500.2500, L505.5000 #### [facility] [address] [place], [address] RDW SD 45.0 fl High 35.1-43.9 [facility] Comment on above: Performed By: #### L 100.0100, L500.2500, L505.5000 #### [facility] [address] [place], [address] WBC (Bld) [#/Vol] 10.3 10*3/uL Normal 4.4-11.0 [facility] Comment on above: Performed By: #### L 100.0100, L500.2500, L505.5000 #### [facility] [address] [place], [address] Emergency Department Summary on 07-24-2024 Emergency Department Summary [facility] Medical Records Department [address] [place] [address] Emergency Department Summary 07/24/24 MR#: [id number] Acct: [id number] Name: BJ DAY Rep #: [id number] : 1940 83 From: Lio Gary DO PCP: Dr. Javy Melendez MD Status:DEP ER Location: ED HPI History of Present Illness Chief Complaint: Overdose Narrative Narrative: Chief complaint and HPI: Accidental medication ingestion. Patient is an 83-year-old male with history of MRDD who accidentally ingested someone else's medication. [facility] a [facility]. One of the other prison members left his medication on the counter and Bj accidentally ingested it. Patient's home medication this evening was 3 mg of melatonin, 10 mg of memantine, 10 mg of pravastatin. The medication that he accidentally took was 200 mg of sertraline and 100 mg of oxcabazepine. Patient is at his baseline neurological status per binding bench worker. His vitals are stable. Patient has no complaints. sheet metal lay out worker denies any nausea or vomiting or any other symptoms. Review of systems: See HPI Medications: As listed on the chart Allergies: As listed on the chart PFSH: Per chart Vital signs: As listed on the chart. Reviewed. Physical exam: Gen: Alert and oriented to self and place-patient's baseline per binding bench worker, NAD Head: Normocephalic, atraumatic Eyes: No sclera icterus, conjunctiva clear, PERRL, EOMI ENT: Moist mucous membranes Neck: Trachea midline, No JVD CV: RRR, no murmurs, no peripheral edema Resp: Lungs CTA BL, no w/r/c GI: Abd soft, non-distended, non-tender, no r/r/g Musc: Full ROM, no deformity, strength normal and equal in all extremity Skin: Warm, dry Neuro: Alert, grossly intact Psych: Cooperative, appropriate mood and affect [facility] Medical History (Updated 07/24/24 @ 21:[address] Lio Gary, ) Malignant neoplasm of prostate Gait abnormality Seborrheic dermatitis Unspecified intellectual disabilities Hyperlipidemia Edema Tobacco abuse Hypertension Alzheimer's dementia Home Medications ???Medication ???Instructions ???Recorded ???Last Taken ???Type amlodipine 5 mg tablet 5 mg PO DAILY 07/24/24 Unknown History hydrochlorothiazide 12.5 mg capsule 12.5 mg PO DAILY 07/24/24 Unknown History melatonin 3 mg tablet 3 mg PO QHS 07/24/24 Unknown History memantine 10 mg tablet 10 mg PO BID 07/24/24 Unknown History pravastatin 10 mg tablet 10 mg PO QHS 07/24/24 Unknown History Allergy/AdvReac Type Severity Reaction Status Date / Time No Known Allergies Allergy Verified 07/24/24 20:15 Social History Smoking Status: Current every day smoker tobacco type: pipe EXAM Physical Exam Const Vital Signs: 07/24/24 20:15 07/24/24 21:13 07/24/24 22:00 Temperature 98.1 F 98 F Temperature Source Temporal Pulse Rate 74 70 72 Respiratory Rate 18 14 14 Blood Pressure 163/93 H 134/65 H 115/69 Blood Pressure Mean 116 88 84 Pulse Ox 98 97 97 Oxygen Delivery Method Room Air Room Air MDM MDM MDM Narrative Medical decision making narrative: 83-year-old male presents for evaluation of accidental medication ingestion. The medication that he accidentally took was 200 mg of sertraline and 100 mg of oxcabazepine. Patient's vitals are stable. He is asymptomatic. Patient had labs and urine drug screen ordered and triage. Labs resulted by the time I saw the patient. I do not think that there is any need for a urine drug screen therefore this was discontinued. CBC without leukocytosis. Patient has anemia of 12.7. I do not have previous labs to compare to. I suspect that this is not acute. BMP is relatively unremarkable except for mild hyponatremia at 3.4. At this point in time, I do not think that there is any further workup that is needed. sheet metal lay out worker was told to monitor for development of symptoms such as elevated temperature, muscle stiffness, nausea, vomiting, abdominal pain, altered mental status. Patient developed the symptoms and need to return back to the ED. I suspect patient will be asymptomatic. Follow-up with PCP especially for his anemia. They confirmed understanding the plan. Patient is discharged home Impression: 1. Accidental medication ingestion 2. Anemia Lab Data Labs: Laboratory Results - last 24 hr 07/24/24 07/24/24 21:12 21:20 WBC 10.3 RBC 4.09 L Hgb 12.7 L Hct 37.8 L MCV 92.4 MCH 31.1 MCHC 33.6 RDW Std Deviation 45.0 H RDW Coeff of Bertha 13.3 Plt Count 178 MPV 10.6 Immature Gran % (Auto) 0.300 Neut % (Auto) 39.5 L Lymph % (Auto) 46.2 H Stanley % (Auto) 9.4 Eos % (Auto) 3.9 Baso % (Auto) 0.7 Absolute Neuts (auto) 4.1 Absolute Lymphs (auto) 4.74 H Nucleated RBC % 0 Sod (more content not included)... Normal [facility] Urine Drug Screen (VISTA)on 07-24-2024 DRUG CONFIRM Normal [facility] Comment on above: Result Comment: DR R EQUESTED CANCELLATION CONFIRMATORY TESTING FOR ALL POSITIVE URINE DRUG SCREEN RESULTS WILL ONLY BE SENT OUT UPON PHYSICIAN ORDER. VISTA Urine Drug Screen methods provide only preliminary analytical test results. A more specific alternate chemical method must be used in order to obtain a confirmed analytical result. Gas chromatography/mass spectrometery (GC/MS) is the preferred confirmatory method. Clinical consideration and professional judgement should be applied to any drug of abuse test result, particularly when preliminary positive results are used. URINE TCA TESTING MUST BE ORDERED SEPARATELY. USE TEST MNEMONIC: [facility] Performed By: #### L 100.0100, L500.2500, L505.5000 #### [facility] [address] [place] [address] AMPHETAMINES Normal <1000 ng/mL [facility] Comment on above: Result Comment: DR Sebastian MCKEON CANCELLATION Performed By: #### L 100.0100, L500.2500, L505.5000 #### [facility] [address] [place] [address] BARBITIURATES Normal < 200 ng/mL [facility] Comment on above: Result Comment: DR Sebastian MCKEON CANCELLATION Performed By: #### L 100.0100, L500.2500, L505.5000 #### [facility] [address] [place] [id number] BENZODIAZIPINE Normal < 200 ng/mL [facility] Comment on above: Result Comment: DR Sebastian MCKEON CANCELLATION Performed By: #### L 100.0100, L500.2500, L505.5000 #### [facility] [address] [facility] [address] COCAINE Normal < 300 ng/mL [facility] Comment on above: Result Comment: DR Sebastian MCKEON CANCELLATION Performed By: #### L 100.0100, L500.2500, L505.5000 #### [facility] [address] [facility] [address] ECSTACY Normal < 500 ng/mL [facility] Comment on above: Result Comment: DR R EQUESTED CANCELLATION Performed By: #### L 100.0100, L500.2500, L505.5000 #### [facility] [address] [place], [address] METHADONE Normal < 300 ng/mL [facility] Comment on above: Result Comment: DR Sebastian MCKEON CANCELLATION Performed By: #### L 100.0100, L500.2500, L505.5000 #### [facility] [address] [place], [address] OPIATES Normal < 300 ng/mL [facility] Comment on above: Result Comment: DR Sebastian MCKEON CANCELLATION Performed By: #### L 100.0100, L500.2500, L505.5000 #### [facility] [address] [place], [address] PCP Normal < 25 ng/mL [facility] Comment on above: Result Comment: DR Sebastian MCKEON CANCELLATION Performed By: #### L 100.0100, L500.2500, L505.5000 #### [facility] [address] [place], [address] THC Normal < 50 ng/mL [facility] Comment on above: Result Comment: DR Sebastian MCKEON CANCELLATION Performed By: #### L 100.0100, L500.2500, L505.5000 #### [facility] [address] [place], [address] VISTA UDS PH Normal [facility] Comment on above: Result Comment: DR Sebastian MCKEON CANCELLATION Performed By: #### L 100.0100, L500.2500, L505.5000 #### [facility] [address] [place], [address] No Panel Informationon 05-29 IMPRESSION: Findings maybe seen with calcific tendinitis adjacent to the greater tuberosity. [employer] Encaser: PSCB Transcribe Date/Time: May 29 2024 4:08P Dictated by : THELMA POE MD This examination was interpreted and the report reviewed and electronically signed by: THELMA POE MD on May 29 2024 4:10PM [facility] DIVISION OF RADIOLOGY Radiology Study observation (narrative) [facility] No Panel InformationOrdered By: [facility] Provider on 05-29-2024 [facility] XR Humerus - right AP and La teralon 05-29-2024 * * *Final Report* * * DATE OF EXAM: May 29 2024 4:09PM WOX 5355 - XR HUMERUS 2V AP/LAT RT / PROCEDURE REASON: Pain of right upper extremity * * * * Physician Interpretation * * * * CLINICAL INDICATION: Pain TECHNIQUE: 3 view radiographic study of the right shoulder and right humerus COMPARISON: None FINDINGS: No acute fracture or dislocation identified. Mild acromioclavicular joint space narrowing with hypertrophic change. Mild glenohumeral joint space narrowing with miniscule inferior marginal osteophyte formation. Amorphous calcifications adjacent to the greater tuberosity, a finding which may reflect calcific tendinitis. Small enthesophyte formation along the medial and humeral condyles. DIVISION OF RADIOLOGY Provider, [facility] - 05/29/2024 * * *Final Report* * * DATE OF EXAM: May 29 2024 4:09PM WOX 5355 - XR HUMERUS 2V AP/LAT RT / PROCEDURE REASON: Pain of right upper extremity * * * * Physician Interpretation * * * * CLINICAL INDICATION: Pain TECHNIQUE: 3 view radiographic study of the right shoulder and right humerus COMPARISON: None FINDINGS: No acute fracture or dislocation identified. Mild acromioclavicular joint space narrowing with hypertrophic change. Mild glenohumeral joint space narrowing with miniscule inferior marginal osteophyte formation. Amorphous calcifications adjacent to the greater tuberosity, a finding which may reflect calcific tendinitis. Small enthesophyte formation along the medial and humeral condyles. IMPRESSION IMPRESSION: Findings maybe seen with calcific tendinitis adjacent to the greater tuberosity. [employer] Encaser: KARY Transcribe Date/Time: May 29 2024 4:08P Dictated by : THELMA POE MD This examination was interpreted and the report reviewed and electronically signed by: THELMA POE MD on May 29 2024 4:10PM EST [facility] XR Shoulder - right 3 Viewso n 05-29-2024 * * *Final Report* * * DATE OF EXAM: May 29 2024 4:09PM WOX 5253 - XR SHLDR >/=3V AP/OLINDA AP/OTHR RT / PROCEDURE REASON: Pain of right upper extremity * * * * Physician Interpretation * * * * CLINICAL INDICATION: Pain TECHNIQUE: 3 view radiographic study of the right shoulder and right humerus COMPARISON: None FINDINGS: No acute fracture or dislocation identified. Mild acromioclavicular joint space narrowing with hypertrophic change. Mild glenohumeral joint space narrowing with miniscule inferior marginal osteophyte formation. Amorphous calcifications adjacent to the greater tuberosity, a finding which may reflect calcific tendinitis. Small enthesophyte formation along the medial and humeral condyles. DIVISION OF RADIOLOGY Provider, [facility] - 05/29/2024 * * *Final Report* * * DATE OF EXAM: May 29 2024 4:09PM WOX 5253 - XR SHLDR >/=3V AP/OLINDA AP/OTHR RT / PROCEDURE REASON: Pain of right upper extremity * * * * Physician Interpretation * * * * CLINICAL INDICATION: Pain TECHNIQUE: 3 view radiographic study of the right shoulder and right humerus COMPARISON: None FINDINGS: No acute fracture or dislocation identified. Mild acromioclavicular joint space narrowing with hypertrophic change. Mild glenohumeral joint space narrowing with miniscule inferior marginal osteophyte formation. Amorphous calcifications adjacent to the greater tuberosity, a finding which may reflect calcific tendinitis. Small enthesophyte formation along the medial and humeral condyles. IMPRESSION IMPRESSION: Findings maybe seen with calcific tendinitis adjacent to the greater tuberosity. [employer] Encaser: PSCB Transcribe Date/Time: May 29 2024 4:08P Dictated by : THELMA POE MD This examination was interpreted and the report reviewed and electronically signed by: THELMA POE MD on May 29 2024 4:10PM EST [facility] CT Head WO contraston 2023 [facility] CBC panel Auto (Bld)on 03-03 Erythrocyte distribution width (RBC) [Ratio] 13.1 % 11.5 - 15.0 % [facility] Hematocrit (Bld) [Volume fraction] 40.7 % 39.0 - 51.0 % [facility] Hemoglobin (Bld) [Mass/Vol] 13.5 g/dL 13.0 - 17.0 g/dL [facility] MCH (RBC) [Entitic mass] 30.8 pg 26.0 - 34.0 pg [facility] MCHC (RBC) [Mass/Vol] 33.2 g/dL 30.5 - 36.0 g/dL [facility] MCV (RBC) [Entitic vol] 92.9 fL 80.0 - 100.0 fL [facility] Nucleated RBC (Bld) [#/Vol] <0.01 k/uL [facility] Platelet mean volume (Bld) [Entitic vol] 11.1 fL 9.0 - 12.7 fL [facility] Platelets (Bld) [#/Vol] 204 10*3/uL 150 - 400 k/uL [facility] RBC (Bld) [#/Vol] 4.38 10*6/uL 4.20 - 6.0 0 m/uL [facility] WBC (Bld) [#/Vol] 8.34 10*3/uL 3.70 - 11. 00 k/uL [facility] Vital Signs Date Time Vital Sign Value Performing Clinician Loni solano 06-05-2025 11:160400 Body mass index (BMI) [Ratio] 31.07 kg/m2 Javy Melendez MD Work Phone: [facility] 06-05-2025 [id number] Body weight 87.7 kg Javy Melendez MD Work Phone: [facility] 06-05-2025 11:16-0400 Diastolic blood pressure 76 mm[Hg] Javy Melendez MD Work Phone: [facility] 06-05-2025 11:16-0400 Heart rate 64 /min Javy Melendez MD Work Phone: [facility] 06-05-2025 11:16-0400 Respiratory rate 18 /min Javy Melendez MD Work Phone: [facility] 06-05-2025 11:16-0400 Systolic blood pressure 130 mm[Hg] Javy Melendez MD Work Phone: [facility] 05-22-2025 09:00-0400 Body mass index (BMI) [Ratio] 31.6 kg/m2 Queta Denis APRN.ASSOCIATE MANAGER Work Phone: [facility] 05-22-2025 09:00-0400 Body weight 89.2 kg Queta Denis [employer] MANAGER.ASSOCIATE MANAGER Work Phone: [facility] 05-22-2025 09:00-0400 Diastolic blood pressure 78 mm[Hg] Queta Denis APRN.ASSOCIATE MANAGER Work Phone: [facility] 05-22-2025 09:00-0400 Heart rate 68 /min Queta Denis APRN.ASSOCIATE MANAGER Work Phone: [facility] 05-22-2025 09:00-0400 Respiratory rate 14 /min Queta Denis APRN.ASSOCIATE MANAGER Work Phone: [facility] 05-22-2025 09:00-0400 SaO2% (BldA) [Mass fraction] 98 % Queta Denis APRN.ASSOCIATE MANAGER Work Phone: [facility] 05-22-2025 09:00-0400 Systolic blood pressure 122 mm[Hg] Queta Denis [employer] MANAGER.ASSOCIATE MANAGER Work Phone: [facility] 05-03-2025 08:22-0400 Body mass index (BMI) [Ratio] 31.53 kg/m2 Nael Gilliland [employer] DISTRICT MANAGER.ASSOCIATE MANAGER Work Phone: [facility] 05-03-2025 08:22-0400 Body temperature 97.59 [degF] Nael Gilliland [employer] DISTRICT MANAGER.ASSOCIATE MANAGER Work Phone: [facility] 05-03-2025 08:22-0400 Body weight 89 kg Nael Gilliland [employer] MANAGER.ASSOCIATE MANAGER Work Phone: [facility] 05-03-2025 08:22-0400 Diastolic blood pressure 75 mm[Hg] Nael Schwanger [employer] DISTRICT MANAGER.ASSOCIATE MANAGER Work Phone: [facility] 05-03-2025 08:22-0400 Heart rate 64 /min Nael Schwra [employer] MANAGER.ASSOCIATE MANAGER Work Phone: [facility] 05-03-2025 08:22-0400 Respiratory rate 18 /min Nael Schwra [employer] MANAGER.ASSOCIATE MANAGER Work Phone: [facility] 05-03-2025 08:22-0400 SaO2% (BldA) [Mass fraction] 99 % Nael Gilliland [employer] DISTRICT MANAGER.ASSOCIATE MANAGER Work Phone: [facility] 05-03-2025 08:22-0400 Systolic blood pressure 135 mm[Hg] Nael Schwanger [employer] MANAGER.ASSOCIATE MANAGER Work Phone: [facility] 04-25-2025 15:09-0400 Body mass index (BMI) [Ratio] 31.67 kg/m2 Queta Denis [employer] MANAGER.ASSOCIATE MANAGER Work Phone: [facility] 04-25-2025 15:09-0400 Body weight 89.4 kg Queta Denis [employer] DISTRICT MANAGER.ASSOCIATE MANAGER Work Phone: [facility] 04-25-2025 15:09-0400 Diastolic blood pressure 86 mm[Hg] Queta NickAdeel [employer] MANAGER.ASSOCIATE MANAGER Work Phone: [facility] 04-25-2025 15:09-0400 Heart rate 81 /min Queta NickAdeel [employer] MANAGER.ASSOCIATE MANAGER Work Phone: [facility] 04-25-2025 15:09-0400 Respiratory rate 16 /min Queta NickAdeel [employer] MANAGER.ASSOCIATE MANAGER Work Phone: [facility] 04-25-2025 15:09-0400 SaO2% (BldA) [Mass fraction] 96 % Queta Denis [employer] MANAGER.ASSOCIATE MANAGER Work Phone: [facility] 04-25-2025 15:09-0400 Systolic blood pressure 122 mm[Hg] Queta MarroquinAdeel [employer] MANAGER.ASSOCIATE MANAGER Work Phone: [facility] 11-08-2024 10:49-0500 Body height 168 cm Queta Adeel [employer] MANAGER.ASSOCIATE MANAGER Work Phone: [facility] 11-08-2024 10:49-0500 Body mass index (BMI) [Ratio] 31.36 kg/m2 Queta Adeel [employer] MANAGER.ASSOCIATE MANAGER Work Phone: [facility] 11-08-2024 10:49-0500 Body weight 88.5 kg Queta Adeel [employer] DISTRICT MANAGER.ASSOCIATE MANAGER Work Phone: [facility] 11-08-2024 10:49-0500 Diastolic blood pressure 74 mm[Hg] Queta Adeel [employer] MANAGER.ASSOCIATE MANAGER Work Phone: [facility] 11-08-2024 10:49-0500 Heart rate 84 /min Queta Adeel [employer] MANAGER.ASSOCIATE MANAGER Work Phone: [facility] 11-08-2024 10:49-0500 Respiratory rate 12 /min Queta Adeel [employer] MANAGER.ASSOCIATE MANAGER Work Phone: [facility] 11-08-2024 10:49-0500 SaO2% (BldA) [Mass fraction] 99 % Queta NickAdeel [employer] MANAGER.ASSOCIATE MANAGER Work Phone: [facility] 11-08-2024 10:49-0500 Systolic blood pressure 134 mm[Hg] Queta Adeel [employer] DISTRICT MANAGER.ASSOCIATE MANAGER Work Phone: [facility] 05-29-2024 15:43-0400 Body mass index (BMI) [Ratio] 29.51 kg/m2 Brianna Hayden [employer] DISTRICT MANAGER.ASSOCIATE MANAGER Work Phone: [facility] 05-29-2024 15:43-0400 Body temperature 99.5 [degF] Brianna Hayden [employer] DISTRICT MANAGER.ASSOCIATE MANAGER Work Phone: [facility] 05-29-2024 15:43-0400 Body weight 84.2 kg Brianna Hayden [employer] DISTRICT MANAGER.ASSOCIATE MANAGER Work Phone: [facility] 05-29-2024 15:43-0400 Diastolic blood pressure 70 mm[Hg] Brianna Hayden [employer] DISTRICT MANAGER.ASSOCIATE MANAGER Work Phone: [facility] 05-29-2024 15:43-0400 Heart rate 88 /min Brianna Hayden [employer] DISTRICT MANAGER.ASSOCIATE MANAGER Work Phone: [facility] 05-29-2024 15:43-0400 Respiratory rate 16 /min Brianna Hayden [employer] DISTRICT MANAGER.ASSOCIATE MANAGER Work Phone: [facility] 05-29-2024 15:43-0400 SaO2% (BldA) [Mass fraction] 94 % Brianna Hayden [employer] DISTRICT MANAGER.ASSOCIATE MANAGER Work Phone: [facility] 05-29-2024 15:43-0400 Systolic blood pressure 124 mm[Hg] Brianna Hayden [employer] DISTRICT MANAGER.ASSOCIATE MANAGER Work Phone: [facility] 05-26-2024 07:39-0400 Body mass index (BMI) [Ratio] 29.93 kg/m2 Queta Adeel [employer] DISTRICT MANAGER.ASSOCIATE MANAGER Work Phone: [facility] 05-26-2024 07:39-0400 Body weight 85.4 kg Queta Adeel [employer] DISTRICT MANAGER.ASSOCIATE MANAGER Work Phone: [facility] 05-26-2024 07:39-0400 Diastolic blood pressure 78 mm[Hg] Queta Adeel [employer] DISTRICT MANAGER.ASSOCIATE MANAGER Work Phone: [facility] 05-26-2024 07:39-0400 Heart rate 73 /min Queta Adeel [employer] DISTRICT MANAGER.ASSOCIATE MANAGER Work Phone: [facility] 05-26-2024 07:39-0400 Respiratory rate 16 /min Queta Adeel [employer] MANAGER.ASSOCIATE MANAGER Work Phone: [facility] 05-26-2024 07:39-0400 SaO2% (BldA) [Mass fraction] 95 % Queta MarroquinAdeel [employer] MANAGER.ASSOCIATE MANAGER Work Phone: [facility] 05-26-2024 07:39-0400 Systolic blood pressure 152 mm[Hg] Queta Adeel [employer] DISTRICT MANAGER.ASSOCIATE MANAGER Work Phone: [facility] 05-05-2024 10:10-0400 Diastolic blood pressure 77 mm[Hg] James Bronson Jr., MD Work Phone: [facility] 05-05-2024 10:10-0400 Heart rate 62 /min James Bronson Jr., MD Work Phone: [facility] 05-05-2024 10:10-0400 Respiratory rate 16 /min James Bronson Jr., MD Work Phone: [facility] 05-05-2024 10:10-0400 SaO2% (BldA) [Mass fraction] 99 % James Bronson Jr., MD Work Phone: [facility] 05-05-2024 10:10-0400 Systolic blood pressure 126 mm[Hg] James Bronson Jr., MD Work Phone: [facility] 02-04-2024 09:11-0400 Body weight 83.83 kg James Bronson Jr., MD Work Phone: [facility] 02-04-2024 09:11-0400 Diastolic blood pressure 68 mm[Hg] James Bronson Jr., MD Work Phone: [facility] 02-04-2024 09:11-0400 Heart rate 70 /min James Bronson Jr., MD Work Phone: [facility] 02-04-2024 09:11-0400 Respiratory rate 16 /min James Bronson Jr., MD Work Phone: [facility] 02-04-2024 09:11-0400 SaO2% (BldA) [Mass fraction] 96 % James Bronson Jr., MD Work Phone: [facility] 02-04-2024 09:11-0400 Systolic blood pressure 124 mm[Hg] James Bronson Jr., MD Work Phone: [facility] 03-03-2023 10:30-0400 Diastolic blood pressure 58 mm[Hg] Queta Older [employer] DISTRICT MANAGER.ASSOCIATE MANAGER Work Phone: [facility] 03-03-2023 10:30-0400 Systolic blood pressure 116 mm[Hg] Queta Older [employer] DISTRICT MANAGER.ASSOCIATE MANAGER Work Phone: [facility] 03-03-2023 10:14-0400 Body weight 82.56 kg Queta Older [employer] DISTRICT MANAGER.ASSOCIATE MANAGER Work Phone: [facility] 03-03-2023 10:14-0400 Heart rate 85 /min Queta Older [employer] DISTRICT MANAGER.ASSOCIATE MANAGER Work Phone: [facility] 03-03-2023 10:14-0400 Respiratory rate 16 /min Queta Older [employer] DISTRICT MANAGER.ASSOCIATE MANAGER Work Phone: [facility] 06-24-2022 09:24-0400 Diastolic blood pressure 58 mm[Hg] Queta Older [employer] DISTRICT MANAGER.ASSOCIATE MANAGER Work Phone: [facility] 06-24-2022 09:24-0400 Systolic blood pressure 116 mm[Hg] Queta Older [employer] DISTRICT MANAGER.ASSOCIATE MANAGER Work Phone: [facility] 06-24-2022 09:05-0400 Body height 165.1 cm Queta Older [employer] DISTRICT MANAGER.ASSOCIATE MANAGER Work Phone: [facility] 06-24-2022 09:05-0400 Body weight 79.83 kg Queta Older [employer] DISTRICT MANAGER.ASSOCIATE MANAGER Work Phone: [facility] 06-24-2022 09:05-0400 Heart rate 78 /min Queta Older [employer] DISTRICT MANAGER.ASSOCIATE MANAGER Work Phone: [facility] 06-24-2022 09:05-0400 Respiratory rate 16 /min Queta Older [employer] DISTRICT MANAGER.ASSOCIATE MANAGER Work Phone: [facility] Encounters Encounter Date Encounter Type Care Provider Facility Start: 08-22-2025 End: 08-22-2025 ambulatory KEN LAZO Facility:[facility] Start: 07-26-2025 End: 07-26-2025 ambulatory SELF Facility:[facility] Start: 07-25-2025 End: 07-25-2025 ambulatory DEBBI VUONG Facility:[facility] Start: 07-05-2025 End: 07-05-2025 ambulatory JAVY MELENDEZ Facility:[facility] Start: 07-05-2025 End: 07-05-2025 Patient encounter procedure Kaitlynn Garcia Work Phone: Podiatry Comment on above: Onychomycosis (Prima ry Dx); Pain in toe of left foot; Pain in toe of right foot; Callus of foot; Hammer toe of right foot; Hammer toe of left foot Start: 06-05-2025 End: 06-05-2025 Office outpatient visit 15 minutes Javy Melendez MD Work Phone: [facility] [place] Comment on above: Venous insufficiency of both lower extremities (Primary Dx); Primary hypertension; Edema of both legs Start: 06-05-2025 End: 06-05-2025 ambulatory JAVY MELENDEZ Facility:[facility] Start: 05-22-2025 End: 05-22-2025 Office outpatient visit 25 minutes Queta Denis [employer] MANAGER.ASSOCIATE MANAGER Work Phone: Internal Medicine [place] Comment on above: Primary hypertension (Primary Dx); Hyperlipidemia, unspecified hyperlipidemia type; Unspecified intellectual disabilities; Cognitive decline; Impaired glucose metabolism Start: 05-22-2025 End: 05-22-2025 ambulatory SELF Facility:[facility] Start: 05-03-2025 End: 05-03-2025 Office outpatient visit 25 minutes Nael Gilliland [employer] DISTRICT MANAGER.ASSOCIATE MANAGER Work Phone: [facility] [place] Comment on above: Bilateral impacted c erumen (Primary Dx) Start: 05-03-2025 End: 05-03-2025 ambulatory JAVY MELENDEZ Facility:[facility] Start: 04-30-2025 End: 06-30-2025 Remigio Bronson MD Work Phone: Neurology Start: 04-25-2025 End: 04-25-2025 ambulatory QUETA DENIS Facility:[facility] Start: 04-25-2025 End: 04-25-2025 Office outpatient visit 25 minutes Queta Denis RESTAURANT DISTRICT MANAGER.ASSOCIATE MANAGER Work Phone: Internal Medicine [place] Comment on above: Unsteady gait (Prima ry Dx); Sleepiness; Gait abnormality; Impaired glucose metabolism; Impacted cerumen, bilateral; Conductive hearing loss, bilateral Start: 04-25-2025 End: 04-25-2025 ambulatory QUETA DENIS Facility:[facility] Start: 04-03-2025 End: 04-03-2025 Patient encounter procedure Kaitlynn Garcia Work Phone: Podiatry Comment on above: Onychomycosis (Prima ry Dx); Pain in toe of left foot; Pain in toe of right foot; Callus of foot Start: 04-03-2025 End: 04-03-2025 ambulatory KAITLYNN GARCIA Facility:[facility] Start: 11-09-2024 End: 11-09-2024 ambulatory JAVY MELENDEZ Facility:[facility] Start: 11-08-2024 End: 11-08-2024 ambulatory JAVY MELENDEZ Facility:[facility] Start: 11-08-2024 End: 11-08-2024 Patient encounter procedure Queta Denis APRN.ASSOCIATE MANAGER Work Phone: Internal Medicine [place] Comment on above: Medicare annual well ness visit, subsequent (Primary Dx); Primary hypertension; Hyperlipidemia, unspecified hyperlipidemia type; Unspecified intellectual disabilities; Cognitive decline; Screening for depression; Encounter for screening examination for other mental health and behavioral disorders Start: 11-02-2024 End: 11-03-2024 Refill Javy Melendez MD Work Phone: Internal Medicine [place] Comment on above: Refill Request Start: 07-24-2024 End: 07-24-2024 Emergency department patient visit Javy Melendez Facility:[facility] Start: 06-28-2024 End: 06-28-2024 ambulatory Sacha Domingo PT [facility] Comment on above: Pain of right upper extremity Start: 06-02-2024 Telephone encounter Queta lara APRN.ASSOCIATE MANAGER Work Phone: Internal Medicine [place] Comment on above: Results Start: 05-29-2024 End: 05-29-2024 Subsequent hospital visit by physician Xr [facility] [place] Work Phone: Radiology Comment on above: Pain of right upper extremity [M79.601] Start: 05-29-2024 End: 05-29-2024 Patient encounter procedure Brianna Hayden RESTAURANT DISTRICT MANAGER.ASSOCIATE MANAGER Work Phone: [facility] [facility] Comment on above: Pain of right upper extremity (Primary Dx) Start: 05-26-2024 End: 05-26-2024 Patient encounter procedure Queta Denis RESTAURANT DISTRICT MANAGER.ASSOCIATE MANAGER Work Phone: Internal Medicine [place] Comment on above: Nocturia (Primary Dx ); Pain in right upper arm Start: 05-05-2024 End: 05-05-2024 Patient encounter procedure James Bronson MD Work Phone: Neurology Comment on above: Cognitive decline (P rimary Dx); Behavioral change; Insomnia, unspecified type Start: 02-09-2024 End: 02-09-2024 Subsequent hospital visit by physician Ct [facility] Work Phone: Cat Scan Comment on above: Behavioral change [R 46.89] Start: 02-04-2024 End: 02-04-2024 Patient encounter procedure James Bronson MD Work Phone: Neurology Comment on above: Cognitive decline (P rimary Dx); Behavioral change; Insomnia, unspecified type Start: 03-03-2023 End: 03-03-2023 Patient encounter procedure Queta Jha RESTAURANT DISTRICT MANAGER.ASSOCIATE MANAGER Work Phone: Internal Medicine [place] Comment on above: Primary hypertension (Primary Dx); Fatigue, unspecified type; Edema, unspecified type; Hyperlipidemia, unspecified hyperlipidemia type; Obesity, Class I, BMI 30-34.9; Encounter for immunization; Impaired glucose metabolism Start: 06-26-2022 Telephone encounter Queta Jha RESTAURANT DISTRICT MANAGER.ASSOCIATE MANAGER Work Phone: Internal Medicine [place] Comment on above: Results Start: 06-24-2022 End: 06-24-2022 Patient encounter procedure Queta Jha RESTAURANT DISTRICT MANAGER.ASSOCIATE MANAGER Work Phone: Internal Medicine [place] Comment on above: Medicare annual well ness visit, subsequent (Primary Dx); Essential hypertension; Hyperlipidemia, unspecified hyperlipidemia type; Encounter for immunization Start: 02-23-2022 Refill Javy chanel MD Work Phone: [facility] Medicine [place] Comment on above: Refill Request Procedures Date Procedure Procedure Detail Performing Clinician Start: 04-25-2025 Urnls dip stick/tabl et rgnt auto w/o microscopy Quetashi Denis RESTAURANT DISTRICT MANAGER.ASSOCIATE MANAGER Work Phone: Start: 11-08-2024 Adult depression screening assessment Queta Denis RESTAURANT DISTRICT MANAGER.ASSOCIATE MANAGER Work Phone: Start: 05-29-2024 Radex humerus minimu m 2 views Brianna Hayden RESTAURANT DISTRICT MANAGER.ASSOCIATE MANAGER Work Phone: Start: 02-09-2024 Ct head/brain w/o contrast material James Bronson MD Work Phone: Start: 03-03-2023 PFIZER-BIONTECH COVI D-19 BIVALENT VACCINE, AGE 12+ YR Queta Older RESTAURANT DISTRICT MANAGER.ASSOCIATE MANAGER Work Phone: Start: 06-24-2022 PFIZER-BIONTECH COVI D-19 VACCINE, AGE 12+ YR (ADAM TOP) Queta Older RESTAURANT DISTRICT MANAGER.ASSOCIATE MANAGER Work Phone: Plan of Treatment Date Care Activity Detail Author Start: 04-25-2028 Diabetes Screening Diabetes Screenin g [facility] Start: 11-09-2027 Diabetes Screening Diabetes Screenin g [facility] Start: 03-03-2026 Diabetes Screening Diabetes Screenin g [facility] Start: 11-22-2025 End: 11-22-2025 Patient encounter procedure 11/22/2025 4:00 PM EST Office Visit [facility] [place] [address] [place] [address] Javy Melendez MD [address] [place] [id number] medicare wellness [facility] [place] Comment on above: medicare wellness Start: 11-08-2025 Anxiety Screening Anxiety Screening [facility] Start: 11-08-2025 Covid-19 Vaccine (6 - 2024-25 season) Covid-19 Vaccine () [facility] Comment on above: Postponed from 06/25 (Declined at this time) Start: 11-08-2025 Depression Screening Depression Scre enclara [facility] Start: 11-08-2025 Medicare Annual Wellness Visit Medicare Annual Wellness Visit [facility] Start: 11-08-2025 RSV Vaccine (1 - 1-d ose 75+ series) RSV Vaccine (1 - 1-dose 75+ series) [facility] Comment on above: Postponed from 09/24 (Declined at this time) Start: 11-08-2025 Shingrix Vaccine (1 of 2) Shingrix Vaccine (1 of 2) [facility] Comment on above: Postponed from 09/24 (Declined at this time) Start: 11-08-2025 Urine microalbumin profile DTaP,Tdap,Td Vaccine (1 - Tdap) [facility] Comment on above: Postponed from 05/08 (Declined at this time) Start: 10-05-2025 End: 10-05-2025 Patient encounter procedure 10/05/2025 2:40 PM EST Office Visit Podiatry [address] [place], [place] [id number] Kaitlynn Garcia [address] [place] [address] 3 month follow up Podiatry Comment on above: 3 month follow up Start: 07-25-2025 End: 07-25-2025 Patient encounter procedure 07/25/2025 11:30 AM EDT Office Visit Neurology [address] [place] [address] Debbi Vuong PA-C [address] [place] [address] Follow up rescheduled from 05/22/25 provider [facility] Neu[facility] Comment on above: Follow up reschedule d from 05/22/25 provider [facility] Start: 07-05-2025 End: 07-05-2025 Patient encounter procedure 07/05/2025 11:00 AM EDT Office Visit Podiatry [address] [place] [address] Kaitlynn Garcia [address] [place] [address] 3 month follow up [facility] Podiatry Comment on above: 3 month follow up na [facility] Start: 06-24-2025 DIABETES SCREEN DIABETES SCREEN [facility] Start: 05-22-2025 End: 05-22-2025 Patient encounter procedure 05/22/2025 10:00 AM EDT Office Visit Neurology [address] [facility] [place], [place] [id number] Debbi Vuong PA-C [address] [facility] [place], [place] [id number] cognitive decline, behavioral change, Insomnia Neurology Comment on above: cognitive decline, b ehavioral change, Insomnia Start: 05-09-2025 End: 05-09-2025 Patient encounter procedure 05/09/2025 10:00 AM EDT Office Visit Internal Medicine [place] [address] [facility] [place] [address] Javy Melendez MD [address] [facility] [place] [address] follow up 6 months [facility] [place] Comment on above: follow up 6 months Start: 04-25-2025 End: 07-25-2025 Hemoglobin A1c in Blood [facility] Work Phone: Comment on above: Expected: 04/25/2025 , Expires: 07/25/2025 Start: 04-25-2025 End: 07-25-2025 Thyrotropin [Units/volume] in Serum or Plasma [facility] Comment on above: Expected: 04/25/2025 , Expires: 07/25/2025 Start: 11-08-2024 End: 02-07-2025 CBC panel - Blood by Automated count COMPLETE BLOOD COUNT Lab Routine Primary hypertension Expected: 11/08/2024, Expires: 02/07/2025 [facility] Comment on above: Expected: 11/08/2024 , Expires: 02/07/2025 Start: 11-08-2024 End: 02-07-2025 Comprehensive metabolic 2000 panel - Serum or Plasma COMPREHENSIVE METABOLIC PANEL Lab Routine Hyperlipidemia, unspecified hyperlipidemia type Primary hypertension Expected: 11/08/2024, Expires: 02/07/2025 [facility] Comment on above: Expected: 11/08/2024 , Expires: 02/07/2025 Start: 11-08-2024 End: 02-07-2025 Lipid 1996 panel - Serum or Plasma LIPID PANEL BASIC Lab Routine Hyperlipidemia, unspecified hyperlipidemia type Expected: 11/08/2024, Expires: 02/07/2025 [facility] Work Phone: Comment on above: Expected: 11/08/2024 , Expires: 02/07/2025 Start: 11-08-2024 End: 11-08-2024 Patient encounter procedure 11/08/2024 11:00 AM EST Office Visit Internal Medicine [place] [address] [place] [address] Queta Denis, RESTAURANT DISTRICT MANAGER.ASSOCIATE MANAGER [address] [place] [address] Wellness [facility] [place] Comment on above: Wellness Start: 11-06-2024 End: 11-06-2024 Patient encounter procedure Neurology Comment on above: Six month follow up cognitive cognitive decline, b ehavioral change, Insomnia- simone 05/05/24 Start: 10-25-2024 Advance Directive Discussion Advance Directive Discussion [facility] Start: 07-17-2024 End: 07-17-2024 Patient encounter procedure 07/17/2024 8:15 AM EDT Office Visit Orthopaedics [address] [place] [address] Stevie Dockery MD [address] [place] [address] rt shoulder pain Orthopaedics Comment on above: rt shoulder pain Start: 06-28-2024 End: 06-28-2024 ambulatory 06/28/2024 9:00 AM EDT OT/PT/Speech Visit [facility] [address] [place] [address] Sacha Domingo, PT rt shoulder pain [facility] Comment on above: rt shoulder pain Start: 06-25-2024 Covid-19 Vaccine ( season) Covid-19 Vaccine () [facility] Start: 06-25-2024 Covid-19 Vaccine () Covid-19 Vaccine () [facility] Start: 06-25-2024 Influenza vaccination [facility] Start: 05-26-2024 End: 08-25-2024 Urinalysis complete panel - Urine URINALYSIS WITH MICROSCOPIC, REFLEX CULTURE Lab Routine Nocturia Expected: 05/26/2024, Expires: 08/25/2024 [facility] Work Phone: Comment on above: Expected: 05/26/2024 , Expires: 08/25/2024 Start: 02-04-2024 End: 05-05-2024 Cobalamin (Vitamin B12) [Mass/volume] in Serum or Plasma [facility] Work Phone: Comment on above: Expected: 02/04/2024 , Expires: 05/05/2024 Start: 09-12-2023 DIABETES SCREEN DIABETES SCREEN [facility] Start: 06-25-2023 Covid-19 Vaccine () Covid-19 Vaccine () [facility] Start: 06-25-2023 Influenza vaccination INFLUENZA (Sea son Ended) [facility] Start: 06-24-2023 SHINGRIX VACCINE (1 of 2) SHINGRIX VACCINE (1 of 2) [facility] Comment on above: Postponed from 09/24 (Declined at this time) Start: 06-24-2023 Urine microalbumin profile DTAP,TDAP,TD (1 - Tdap) [facility] Comment on above: Postponed from 05/08 (Declined at this time) Start: 05-25-2023 End: 07-25-2023 Lipid 1996 panel - Serum or Plasma LIPID PANEL BASIC Lab Routine Hyperlipidemia, unspecified hyperlipidemia type Expected: 05/25/2023 (Approximate), Expires: 07/25/2023 [facility] Work Phone: Comment on above: Expected: 05/25/2023 (Approximate), Expires: 07/25/2023 Start: 03-03-2023 End: 05-03-2023 Comprehensive metabolic 2000 panel - Serum or Plasma [facility] Work Phone: Comment on above: Expected: 03/03/2023 (Approximate), Expires: 05/03/2023 Start: 03-03-2023 End: 05-03-2023 Hemoglobin A1c in Blood [facility] Work Phone: Comment on above: Expected: 03/03/2023 (Approximate), Expires: 05/03/2023 Start: 03-03-2023 End: 05-03-2023 Thyrotropin [Units/volume] in Serum or Plasma [facility] Work Phone: Comment on above: Expected: 03/03/2023 , Expires: 05/03/2023 Start: 10-25-2022 ADVANCE DIRECTIVE DISCUSSION ADVANCE DIRECTIVE DISCUSSION [facility] Start: 10-25-2022 DEPRESSION ASSESSMENT DEPRESSION ASS ESSMENT [facility] Start: 06-25-2022 Influenza vaccination INFLUENZA (#1) [facility] Start: 06-24-2022 End: 08-24-2022 CBC W Auto Differential panel - Blood [facility] Work Phone: Comment on above: Expected: 06/24/2022 , Expires: 08/24/2022 Start: 06-24-2022 End: 08-24-2022 Comprehensive metabolic 2000 panel - Serum or Plasma [facility] Work Phone: Comment on above: Expected: 06/24/2022 , Expires: 08/24/2022 Start: 06-24-2022 End: 08-24-2022 LIPID PANEL, NONFASTING [facility] Work Phone: Comment on above: Expected: 06/24/2022 , Expires: 08/24/2022 Start: 10-25-2021 ADVANCE DIRECTIVE DISCUSSION ADVANCE DIRECTIVE DISCUSSION [facility] Start: 04-21-2021 COVID-19 VACCINE (3 - Booster for Pfizer series) COVID-19 VACCINE (3 - Booster for Pfizer series) [facility] Start: 2013 RSV Vaccine (1 - 1-d ose 75+ series) RSV Vaccine (1 - 1-dose 75+ series) [facility] Start: 05-08-2011 Urine microalbumin profile [facility] Start: 1998 RSV Vaccine (1 - 1-d ose 60+ series) RSV Vaccine (1 - 1-dose 60+ series) [facility] Start: 1988 SHINGRIX VACCINE (1 of 2) SHINGRIX VACCINE (1 of 2) [facility] Start: 1956 Anxiety Screening Anxiety Screening [facility] Start: 1958 Depression Screening Depression Scre ening [facility] End: 03-05-2025 CT Head WO contrast CT BRAIN WO IVCON Radiology Routine Behavioral change Cognitive decline 1 Occurrences starting 02/04/2024 until 03/05/2025 [facility] Work Phone: Comment on above: 1 Occurrences starti ng 02/04/2024 until 03/05/2025 Lipid 1996 panel - Serum or Plasma LIPID PANEL BASIC Lab Routine Hyperlipidemia, unspecified hyperlipidemia type 03/03/2023 10:55 AM EDT [facility] Work Phone: Removal impacted cerumen irrigation/lvg unilat AMBULATORY EAR LAVAGE/IRRIGATION Procedures Routine Bilateral impacted cerumen Ordered: 05/03/2025 [facility] Work Phone: Comment on above: Ordered: 05/03/2025 [facility] Immunization Date Immunization Notes Care Provider Fa cility 03-03-2023 COVID-19 vaccine, ag e 12+ yr, bivalent (PFIZER-BIONTECH) Queta Older RESTAURANT DISTRICT MANAGER.ASSOCIATE MANAGER Work Phone: [facility] 06-24-2022 COVID-19 vaccine, ag e 12+ yr (PFIZER-BIONTECH - ADAM TOP) Queta Older RESTAURANT DISTRICT MANAGER.ASSOCIATE MANAGER Work Phone: [facility] 01-22-2022 influenza, high dose seasonal, preservative-free Javy Melendez MD Work Phone: [facility] 01-22-2022 influenza virus vacc ine, unspecified formulation James Bronson Jr., MD Work Phone: [facility] 11-21-2020 COVID-19 vaccine, ag e 12+ yr (PFIZER-BIONTECH - PURPLE TOP) Javy Melendez MD Work Phone: [facility] Work Phone: 10-31-2020 COVID-19 vaccine, ag e 12+ yr (PFIZER-BIONTECH - PURPLE TOP) Javy Melendez MD Work Phone: [facility] Work Phone: 09-05-2020 influenza, high-dose , quadrivalent vaccine (FLUZONE HIGH DOSE QUADRIVALENT) Javy Melendez MD Work Phone: [facility] Work Phone: 08-28-2019 influenza, high dose seasonal, preservative-free Javy Melendez MD Work Phone: [facility] Work Phone: 10-26-2018 influenza, high dose seasonal, preservative-free Javy Melendez MD Work Phone: [facility] 08-20-2017 influenza, high dose seasonal, preservative-free Javy Melendez MD Work Phone: [facility] 08-21-2016 influenza, high dose seasonal, preservative-free Javy Melendez MD Work Phone: [facility] 09-23-2015 pneumococcal conjuga te vaccine, 13 valent Javy Melendez MD Work Phone: [facility] Work Phone: 08-21-2015 influenza, high dose seasonal, preservative-free Javy Melendez MD Work Phone: [facility] 09-05-2012 influenza virus vacc ine, whole virus Javy Melendez MD Work Phone: [facility] Work Phone: 05-07-2011 tetanus and diphther ia toxoids, adsorbed, preservative free, for adult use (2 Lf of tetanus toxoid and 2 Lf of diphtheria toxoid) Javy Melendez MD Work Phone: [facility] Work Phone: 01-02-2011 pneumococcal polysaccharide vaccine, 23 valent Javy Melendez MD Work Phone: [facility] Work Phone: 07-25-2009 influenza virus vacc ine, unspecified formulation Javy Melendez MD Work Phone: [facility] Payers Date Payer Category Payer Self-pay 2019 Medicaid MEDICAID [facility] MEDICAID [id number] 2019-Present [phone] [address] [place] [address] Medicaid [id number] 2019 Medicaid [id number] 2019 Medicaid [id number] 1975 Medicare MEDICARE MEDICAR E A AND B [id number] 1973-Present [phone] [address] [address] [place] [address] Medicare [id number] 1973 Medicare [id number] 1973 Medicare [id number] Unknown [id number] Social History Date Type Detail Facility Start: 04-24-2021 End: 02-04-2024 Tobacco smoking status WIIS Smokes tobacco daily [facility] Work Phone: History of tobacco use Pipe Smoker [facility] Work Phone: Start: 04-24-2021 End: 07-05-2025 Alcohol intake Current non-drinker of alcohol (finding) [facility] Start: 12-07-2013 End: 03-03-2023 Tobacco Comment 5-6 pipes per day [facility] Start: 1940 Sex Assigned At Not on file [facility] Start: 04-24-2021 End: 02-04-2024 Tobacco use and exposure Smokeless tobacco non-user [facility] Work Phone: Start: 03-03-2023 End: 11-03-2023 History of Social function [facility] Work Phone: Start: 03-03-2023 End: 11-03-2023 Alcohol Use Disorder Identification Test - Consumption [AUDIT-C] [facility] Work Phone: How often to you hav e a drink containing alcohol? Never [facility] Work Phone: Start: 09-25-[address] inks containing alcohol do you have on a typical day? Patient does not drink [facility] Work Phone: Functional Status Date Assessment Result Facility 02-18-2015 Are you deaf, or do you have serious difficulty hearing No 02/18/2015 9:06 AM Sonam Graham LPN No [facility] 02-18-2015 Are you blind, or do you have serious difficulty seeing, even when wearing glasses No 02/18/2015 9:06 AM Sonam Graham LPN No [facility] 02-18-2015 Do you have serious difficulty walking or climbing stairs No 02/18/2015 9:06 AM Sonam Graham LPN No [facility] 02-18-2015 Do you have difficul ty dressing or bathing No 02/18/2015 9:06 AM Sonam Graham LPN No [facility] 02-18-2015 Because of a physica l, mental, or emotional condition, do you have difficulty doing errands alone such as visiting a physician's office or shopping Yes 02/18/2015 9:06 AM Sonam Graham LPN Yes [facility] Mental Status Date Assessment Result Facility 02-18-2015 Because of a physica l, mental, or emotional condition, do you have serious difficulty concentrating, remembering, or making decisions No 02/18/2015 9:06 AM Sonam Graham LPN No [facility] Clinical Notes 01-04-2012 to 08-22-2025 Patient InstructionsKaitlynn Garcia - 07/05/2025 11:36 AM Priya Mccall MA - 07/05/2025 11:17 AM Javy Roblero MD - 06/05/2025 11:24 AM EDTPatient InstructionsPatient Instructions Note Date & Type Note Facility 08-22-2025 Note HNO ID: [id number] Author: KEN LAZO APRN.ASSOCIATE MANAGER Service: ? Author Type: Nurse Practitioner Type: Progress Notes Filed: 08/22/2025 18:45 Note Text: [facility] [place] Subjective Bj Day is a 84 year old male. Patient presents with: Head Congestion: Sinus drainage, ST x last night HPI The patient is an 84-year-old male with dementia who presents with hoarseness and nasal drainage. He is accompanied by a prison caregiver who provides history. The caregiver reports that last night the patient developed a deep, hoarse voice and significant nasal drainage. She notes that similar symptoms occurred last year, when he developed a deep voice and acted strangely, though the cause was unclear at that time. She brought him in today due to concern about his age and the recurrence of these symptoms. The patient reportedly ate dinner before the visit but refused his meal yesterday. He denies feeling sick, though the caregiver notes he may not reliably report symptoms due to his dementia. She reports no new behavioral changes beyond his baseline dementia-related fluctuations. He attends a workshop daily and lives in a prison with other residents. The caregiver inquires about influenza vaccination, as her supervisor inspection department requested all residents be vaccinated. She also asks about flu, COVID, and RSV testing due to the prison setting. No known drug allergies are reported. 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 MEDICATIONS memantine (NAMENDA) 10 mg tablet Take 1 tablet by mouth two times a day. amLODIPine (NORVASC) 5 mg tablet Take 1 tablet by mouth once daily. QUEtiapine (SEROQUEL) 25 mg tablet Take half a tablet at bedtime as needed melatonin 5 mg tablet Take 1 tablet by mouth daily at bedtime. hydroCHLOROthiazide 25 mg tablet Take 1 tablet by mouth once daily. pravastatin (PRAVACHOL) 10 mg tablet Take 1 tablet by mouth daily at bedtime. For high cholesterol. mineral oil/hydrophil petrolatum (AQUAPHOR) oint Apply 1 application to affected area twice daily. For dry skin/eczema of right hand. fluticasone (FLONASE ALLERGY RELIEF) 50 mcg/actuation nasal spray Use 1 spray in each nostril once daily. doxycycline hyclate (VIBRAMYCIN) 100 mg capsule Take 1 capsule by mouth two times a day for 7 days. Fluticasone Furoate (FLONASE SENSIMIST) 27.5 mcg/actuation nasal spray Use 2 sprays in each nostril once daily. FAMILY HISTORY Problem Relation Age of Onset No Known Problems Sister Cancer Mother Heart Father SOCIAL HISTORY[1] Objective BP 137/72 Pulse 83 Temp 37.4 ?C (99.3 ?F) Resp 18 Wt 90.8 kg (200 lb 2.8 oz) SpO2 98% BMI 32.17 kg/m? Physical Exam Constitutional: General: He is not in acute distress. Appearance: Normal appearance. He is normal weight. He is not ill-appearing or toxic-appearing. HENT: Head: Normocephalic and atraumatic. Right Ear: Ear canal and external ear normal. A middle ear effusion is present. Left Ear: Ear canal and external ear normal. A middle ear effusion is present. Nose: Mucosal edema, congestion and rhinorrhea present. Mouth/Throat: Mouth: Mucous membranes are moist. Tongue: No lesions. Pharynx: Uvula midline. Pharyngeal swelling, posterior oropharyngeal erythema and postnasal drip present. Eyes: Pupils: Pupils are equal, round, and reactive to light. Cardiovascular: Rate and Rhythm: Normal rate and regular rhythm. Heart sounds: Normal heart sounds, S1 normal and S2 normal. Pulmonary: Effort: Pulmonary effort is normal. Breath sounds: Normal breath sounds. No decreased breath sounds, wheezing, rhonchi or rales. Lymphadenopathy: Cervical: Cervical adenopathy present. Neurological: Mental Status: He is alert. { 1. Chronic maxillary sinusitis (J32.0) 2. Post-nasal drip (R09.82) 3. Acute laryngitis (J04.0) - Acute onset of hoarse voice, significant nasal drainage, and cervical lymphadenopathy on exam. Patient in prison setting with higher risk with age and comorbities. - Lungs clear on auscultation; no evidence of pneumonia. - Start Flonase nasal spray; advised to continue through (more content not included)... [facility] 07-26-2025 Note HNO ID: [id number] Author: QUETA DENIS APRN.ASSOCIATE MANAGER Service: ? Author Type: Nurse Practitioner Type: Progress Notes Filed: 07/26/2025 13:44 Note Text: CC: Patient presents with: Recheck HPI Recording using [employer] software for draft documentation of the visit was discussed with the patient/authorized tour sales representative; all questions welcomed and answered. Patient/authorized tour sales representative agreed to proceed The patient is an 84-year-old male with a history of intellectual disabilities presenting for a routine follow-up. Lower Extremity Edema: He was last seen on 06/05 with reports of bilateral lower extremity swelling. At that visit, hydrochlorothiazide was increased to 25 mg and amlodipine was decreased to 2.5 mg. Compression stockings were recommended. According to the caregiver, there has been no improvement in the swelling. The patient does not tolerate snug clothing on his legs, making it difficult to apply compression socks. Behavioral Issues: The caregiver reports ongoing concerns, stating that he is never aggressive toward others but may cause harm to himself. He is followed by neurology and was recently prescribed Seroquel 25 mg yesterday, though this medication has not been started yet. He also takes namenda 10 mg and melatonin. Blood Pressure: His blood pressure is 154/78. The caregiver notes it has trended upward since the amlodipine dose was decreased. 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 MEDICATIONS amLODIPine (NORVASC) 5 mg tablet Take 1 tablet by mouth once daily. QUEtiapine (SEROQUEL) 25 mg tablet Take half a tablet at bedtime as needed melatonin 5 mg tablet Take 1 tablet by mouth daily at bedtime. hydroCHLOROthiazide 25 mg tablet Take 1 tablet by mouth once daily. memantine (NAMENDA) 10 mg tablet Take 1 tablet by mouth two times a day. pravastatin (PRAVACHOL) 10 mg tablet Take 1 tablet by mouth daily at bedtime. For high cholesterol. mineral oil/hydrophil petrolatum (AQUAPHOR) oint Apply 1 application to affected area twice daily. For dry skin/eczema of right hand. FAMILY HISTORY Problem Relation Age of Onset No Known Problems Sister Cancer Mother Heart Father SOCIAL HISTORY[1] BP 154/78 Pulse 74 Resp 16 Wt 89 kg (196 lb 3.4 oz) SpO2 99% BMI 31.53 kg/m? Physical Exam Vitals reviewed. Constitutional: Appearance: Normal appearance. Musculoskeletal: Right lower le+ Pitting Edema present. Left lower le+ Pitting Edema present. Skin: General: Skin is warm and dry. Neurological: Mental Status: He is alert. Assessment/Plan 1. Primary hypertension: Blood pressure is 154/78 mmHg, indicating an upward trend since amlodipine dose was decreased. - Increased amlodipine from 2.5 mg to 5 mg daily. - Will re-evaluate blood pressure at the Medicare wellness visit in October. 2. Edema of lower extremity: Persistent lower extremity swelling with no improvement reported despite increased hydrochlorothiazide (25 mg). Patient does not tolerate snug-fitting compression garments. - Caregiver instructed on selecting knee-high compression socks or cost accounting manager support hose, including proper measurements of the calf and leg length; advised they could be purchased online. - Will reassess swelling at the October follow-up. 3. Unspecified intellectual disabilities: Patient exhibits self-directed aggression; no aggression toward others. Under neurology care; recently started on quetiapine (Seroquel) 25 mg, not yet administered. Continues on memantine 10 mg and melatonin. - continue plan of care per neurology Prescription instructions reviewed with patient as applicable. Potential red flag symptoms discussed with the patient. Reviewed appropriate action plan to take if red flag symptoms occur. Patient agreeable to treatment plan. Queta Denis APRN.ASSOCIATE MANAGER [1] Social History Tobacco Use Smoking status: Every Day Types: Pipe Smokeless tobacco: Never Tobacco comments: 5-6 pipes per day Vaping Use Vaping status: Never Used Substance Use Topics Alcohol use: No Drug use: No [facility] 07-25-2025 Note HNO ID: [id number] Author: DEBBI VUONG PA-C Service: ? Author Type: Physician Tinsmith Apprentice Type: Progress Notes Filed: 07/25/2025 12:44 Note Text: [facility] Name: Bj Day Age: [age] year old Gender: male Primary Care Provider: Javy Melendez MD Assessment/Plan: 07/25/2025 - General Neurology, Debbi Vuong PA-C ASSESSMENT ASSESSMENT/PLAN: 1. Cognitive decline - ICD9: 294.9, ICD10: R41.89 (primary diagnosis) 2. Behavioral change - ICD9: 312.9, ICD10: R46.89 3. Insomnia, unspecified type - ICD9: 780.52, ICD10: G47.00 Patient presents today with caregiver for follow-up, caregiver provides history. Primary concern today is some worsening agitation, self inflicted aggression when the patient gets frustrated and some name-calling. Caregiver also notes that last winter in the days got short of the patient got more confused at night and 1 time took medications belonging to another patient. There was mention of Seroquel at last appointment, discussed at length the risks and benefits including . Caregiver would like to reach out to the patient's family prior to starting this, but would perhaps like to try it as needed at a low dose. Will write Seroquel 12.5 mg as needed at nighttime. Of note, patient also having some issues with daytime fatigue and taking multiple naps throughout the day. Having some issues with insomnia again at night, caregiver feels that he is used to his current dose of melatonin and may need an increase. Discussed increasing from 3 mg to 5 mg and caregiver agreeable. To take at 7 PM. Encouraged conservative therapy for cognition as well including physical and cognitive exercise. Patient still working 4 days a week and doing well with this. Caregiver also reporting some occasional changes with gait, seems unstable sometimes but other times it is normal. On exam does have a wide-based gait but not reporting any low back pain, neuropathy symptoms. Does have decreased reflexes in the lower extremities but no signs of hyperreflexia. No witnessed falls, but there is concerned about a possible fall as patient was taking a shower and had some bruises on his ribs on the left side but does not recall any fall. Encouraged caregiver patient to reach out should any falls occur, any further balance issues or other concerns. Will have patient follow-up in 3-6 months. Debbi Vuong PA-C Encounter Diagnosis ICD-10-CM 1. Cognitive decline R41.89 2. Behavioral change R46.89 3. Insomnia, unspecified type G47.00 Return in about 6 months (around 01/23/2026). Chart, labs,and relevant images reviewed. Chief Complaint:Patient presents with: Follow Up: Reports sleeps a lot and has some anger/behavioral issues that seem increased lately. Patient hits himself. Chart Review: 05/05/[address] Bronson ASSESSMENT/PLAN: 1. Cognitive decline - ICD9: 294.9, ICD10: R41.89 (primary diagnosis) 2. Behavioral change - ICD9: 312.9, ICD10: R46.89 Overall doing well since last visit and as discussed above. Will make no changes to medications today and will continue Namenda 10mg BID. Again, CT brain 8 years later dose show progression of atrophy but may be simply due to aging. As recommended last visit, if behaviors were to worsen, would then start low dose Seroquel at dinner and bedtime (I.e. 12.5mg). 3. Insomnia, unspecified type - ICD9: 780.52, ICD10: G47.00 Circadian pattern now regulated with pt taking melatonin nightly (scheduled). No additional workup or treatment needed at this time. Refills for Namenda and melatonin provided. Request Dr. Dykes CC us on upcoming annual labs (renal and hepatic function). James Bronson MD HPI: Last seen on 05/05/[address] Bronson for cognitive decline. Occasionally gets upset, on namenda 10mg bid. Has a caregiver. Sleep is better on melatonin. May start seroquel if behavior worsens. Patient presents for follow-up with caregiver. History primarily provided by caregiver due to cognitive baseline. Caregiver reporting some mild to moderate worsening of agitation, self-inflicted aggression. Notes that he is starting to name call some of the providers, hits himself when he is frustrated but not to the point of significant injury. No physical violence against any other caregiver or prison member. No wandering at night. However caregiver does note that last winter with the shortened days, he was more confused at nighttime and once took somebody else's medications. No falls that were witnessed however there was a time recently where the caregiver was washing the patient in the shower and noted some bruises on the left side of the ribs and a scrape on the left knee but patient denies any fall. Appetite does fluctuate but weight is stable. Still working 4 times a week, doing well with this, able to perform ADLs with some assistance. Review of Systems ACTIVE PROBLEM LIST (more content not included)... [facility] 07-05-2025 Kaitlynn Martinez - 07/05/2025 11:39 AM EDT Can use hammertoe crest pad to help eliminate pressure on tip of 3rd toe. Please do not tight strap too tight Apply band aide with antibiotic to right 4th toe for 1-2 days or until the 4th toe is healed from small bleed sustained during nail debridement Kaitlynn Garcia DPM documented in this encounter [facility] 07-05-2025 Note HNO ID: [id number] Author: KAITLYNN GARCIA, ? Service: ? Author Type: Physician Type: Progress Notes Filed: 07/05/2025 11:39 Note Text: Subjective: Patient presents to clinic c/o painful toenails. They state that the nails are especially painful with shoe gear and pressure. Patient states that nails 1-5 b/l are painful. Patient admits to having callus of b/l feet No other pedal complaints at this time. Patient states no change in medications or medical history since last visit. Objective: Patient presents to clinic ambulating in boots Vasc: DP and PT pulses are palpable bilateral. CFT is less than 5 seconds bilateral. Skin temperature is warm to cool proximal to distal bilateral. There is no edema or varicosities noted. Neuro: Protective sensation is decreased to the foot and toes when tested with the 5.07 SWM bilateral. The hallux is downgoing bilateral. Derm: Nails 1-5 b/l are painful, discolored-yellow, thick, crumbly, dystrophic and with subungal debris. Skin is of normal turgor, texture and hair growth is absent bilateral. There are callus to medial aspect of right hallux and distal tuft of b/l 3rd toe. No ulceration is present Ortho: Muscle strength is 5/5 for all pedal groups tested. Ankle joint DF is decreased with the knee extended with no pain or crepitus noted. 1st MPJ ROM is decreased bilateral. Hammertoes are present to lesser toes of b/l feet, most pronounced at 3rd toe Assessment: (B35.1) Onychomycosis (primary encounter diagnosis) (M79.675) Pain in toe of left foot (M79.674) Pain in toe of right foot (L84) Callus of foot (M20.41) Hammer toe of right foot (M20.42) Hammer toe of left foot Plan: Patient was seen and evaluated. Nails 1-5 bilateral were debrided in length and thickness. Small bleed to right 4th toe. Topical antibiotic and band aide applied. He only requires band aide for 1-2 days. Discussed callus of b/l 3rd toe as a result of hammertoe. Callus reduced with dremmel. Can use a hammertoe crest pad to help eliminate pressure to the tip of b/l 3rd toe. Caution should be performed to avoid to much tension on strap for pad. Can follow-up in 3 months or sooner for nail care Kaitlynn Garcia DPM [facility] 07-05-2025 History of Present illness Narrative Subjective: Patient presents to clinic c/o painful toenails. They state that the nails are especially painful with shoe gear and pressure. Patient states that nails 1-5 b/l are painful. Patient admits to having callus of b/l feet No other pedal complaints at this time. Patient states no change in medications or medical history since last visit. Objective: Patient presents to clinic ambulating in boots Vasc: DP and PT pulses are palpable bilateral. CFT is less than 5 seconds bilateral. Skin temperature is warm to cool proximal to distal bilateral. There is no edema or varicosities noted. Neuro: Protective sensation is decreased to the foot and toes when tested with the 5.07 SWM bilateral. The hallux is downgoing bilateral. Derm: Nails 1-5 b/l are painful, discolored-yellow, thick, crumbly, dystrophic and with subungal debris. Skin is of normal turgor, texture and hair growth is absent bilateral. There are callus to medial aspect of right hallux and distal tuft of b/l 3rd toe. No ulceration is present Ortho: Muscle strength is 5/5 for all pedal groups tested. Ankle joint DF is decreased with the knee extended with no pain or crepitus noted. 1st MPJ ROM is decreased bilateral. Hammertoes are present to lesser toes of b/l feet, most pronounced at 3rd toe Assessment: (B35.1) Onychomycosis (primary encounter diagnosis) (M79.675) Pain in toe of left foot (M79.674) Pain in toe of right foot (L84) Callus of foot (M20.41) Hammer toe of right foot (M20.42) Hammer toe of left foot Plan: Patient was seen and evaluated. Nails 1-5 bilateral were debrided in length and thickness. Small bleed to right 4th toe. Topical antibiotic and band aide applied. He only requires band aide for 1-2 days. Discussed callus of b/l 3rd toe as a result of hammertoe. Callus reduced with dremmel. Can use a hammertoe crest pad to help eliminate pressure to the tip of b/l 3rd toe. Caution should be performed to avoid to much tension on strap for pad. Can follow-up in 3 months or sooner for nail care Kaitlynn Garcia DPM Patient presents with: Right Foot - Follow Up, Nail care Left Foot - Follow Up, Nail care AMB ROOMING INTAKE FLOWSHEET DATA Biostatistician [place] with patient today. documented in this encounter [facility] 07-05-2025 Note HNO ID: [id number] Author: PRIYA HADLEY MA Service: ? Author Type: Binding Bench Worker Type: Progress Notes Filed: 07/05/2025 11:39 Note Text: Patient presents with: Right Foot - Follow Up, Nail care Left Foot - Follow Up, Nail care AMB ROOMING INTAKE FLOWSHEET DATA Biostatistician [place] with patient today. [facility] 06-05-2025 Note HNO ID: [id number] Author: JAVY MELENDEZ MD Service: ? Author Type: Physician Type: Progress Notes Filed: 06/06/2025 10:32 Note Text: Subjective Bj Day is a 84 year old male. Patient presents with: Edema Bj was here with his caregiver. They were bathing him when they noticed a more pronounced edema right more than left. Bj had no complaints. They were interested in an order for compression stockings. Edema has been noted in the past. ACTIVE PROBLEM LIST Unspecified Intellectual Disabilities Seborrheic Dermatitis, Unspecified Tobacco Use Disorder Htn (Hypertension) Edema Hyperlipidemia Obesity, Class I, Bmi 30-34.9 Gait Abnormality Impaired Glucose Metabolism Social History Tobacco Use Smoking status: Every Day Types: Pipe Smokeless tobacco: Never Tobacco comments: 5-6 pipes per day Vaping Use Vaping status: Never Used Substance Use Topics Alcohol use: No Drug use: No Current Outpatient Medications Medication Sig melatonin 3 mg tablet Take 1 tablet at 7PM nightly. memantine (NAMENDA) 10 mg tablet Take 1 tablet by mouth two times a day. amLODIPine (NORVASC) 5 mg tablet Take 1 tablet by mouth once daily. For hypertension. hydroCHLOROthiazide 12.5 mg capsule Take 1 capsule by mouth once daily. pravastatin (PRAVACHOL) 10 mg tablet Take 1 tablet by mouth daily at bedtime. For high cholesterol. mineral oil/hydrophil petrolatum (AQUAPHOR) oint Apply 1 application to affected area twice daily. For dry skin/eczema of right hand. No current facility-administered medications for this visit. Review of Systems Constitutional: Negative for fever. Respiratory: Negative for shortness of breath. Cardiovascular: Negative for chest pain. Objective BP 130/76 (BP Site: Left Arm, BP Position: Sitting, BP Cuff Size: Large Adult) Pulse 64 Resp 18 Wt 87.7 kg (193 lb 5.5 oz) BMI 31.07 kg/m? Physical Exam Constitutional: General: He is not in acute distress. Appearance: He is not ill-appearing. Cardiovascular: Rate and Rhythm: Normal rate and regular rhythm. Heart sounds: S1 normal and S2 normal. No murmur heard. Pulmonary: Effort: No respiratory distress. Breath sounds: No wheezing, rhonchi or rales. Abdominal: General: There is no distension. Musculoskeletal: Right lower le+ Pitting Edema present. Left lower le+ Pitting Edema present. ASSESSMENT/PLAN: 1. Venous insufficiency of both lower extremities - ICD9: 459.81, ICD10: I87.2 (primary diagnosis) Medication adjustments made. - HYDROCHLOROTHIAZIDE 25 MG TABLET. Dose increased. - COMPRESSION STOCKINGS 2. Primary hypertension - ICD9: 401.9, ICD10: I10 - Controlled - AMLODIPINE 2.5 MG TABLET. Dose decreased. - HYDROCHLOROTHIAZIDE 25 MG TABLET 3. Edema of both legs - ICD9: 782.3, ICD10: R60.0 - See #1 and #2. - COMPRESSION STOCKINGS Javy Melendez MD [facility] 06-05-2025 History of Present illness Narrative Subjective Bj Day is a 84 year old male. Patient presents with: Edema Bj was here with his caregiver. They were bathing him when they noticed a more pronounced edema right more than left. Bj had no complaints. They were interested in an order for compression stockings. Edema has been noted in the past. ACTIVE PROBLEM LIST Unspecified Intellectual Disabilities Seborrheic Dermatitis, Unspecified Tobacco Use Disorder Htn (Hypertension) Edema Hyperlipidemia Obesity, Class I, Bmi 30-34.9 Gait Abnormality Impaired Glucose Metabolism Social History Tobacco Use Smoking status: Every Day Types: Pipe Smokeless tobacco: Never Tobacco comments: 5-6 pipes per day Vaping Use Vaping status: Never Used Substance Use Topics Alcohol use: No Drug use: No Current Outpatient Medications Medication Sig melatonin 3 mg tablet Take 1 tablet at 7PM nightly. memantine (NAMENDA) 10 mg tablet Take 1 tablet by mouth two times a day. amLODIPine (NORVASC) 5 mg tablet Take 1 tablet by mouth once daily. For hypertension. hydroCHLOROthiazide 12.5 mg capsule Take 1 capsule by mouth once daily. pravastatin (PRAVACHOL) 10 mg tablet Take 1 tablet by mouth daily at bedtime. For high cholesterol. mineral oil/hydrophil petrolatum (AQUAPHOR) oint Apply 1 application to affected area twice daily. For dry skin/eczema of right hand. No current facility-administered medications for this visit. Review of Systems Constitutional: Negative for fever. Respiratory: Negative for shortness of breath. Cardiovascular: Negative for chest pain. Objective BP 130/76 (BP Site: Left Arm, BP Position: Sitting, BP Cuff Size: Large Adult) Pulse 64 Resp 18 Wt 87.7 kg (193 lb 5.5 oz) BMI 31.07 kg/m Physical Exam Constitutional: General: He is not in acute distress. Appearance: He is not ill-appearing. Cardiovascular: Rate and Rhythm: Normal rate and regular rhythm. Heart sounds: S1 normal and S2 normal. No murmur heard. Pulmonary: Effort: No respiratory distress. Breath sounds: No wheezing, rhonchi or rales. Abdominal: General: There is no distension. Musculoskeletal: Right lower le+ Pitting Edema present. Left lower le+ Pitting Edema present. ASSESSMENT/PLAN: 1. Venous insufficiency of both lower extremities - ICD9: 459.81, ICD10: I87.2 (primary diagnosis) Medication adjustments made. - HYDROCHLOROTHIAZIDE 25 MG TABLET. Dose increased. - COMPRESSION STOCKINGS 2. Primary hypertension - ICD9: 401.9, ICD10: I10 - Controlled - AMLODIPINE 2.5 MG TABLET. Dose decreased. - HYDROCHLOROTHIAZIDE 25 MG TABLET 3. Edema of both legs - ICD9: 782.3, ICD10: R60.0 - See #1 and #2. - COMPRESSION STOCKINGS Javy Melendez MD documented in this encounter [facility] 05-22-2025 Note HNO ID: [id number] Author: QUETA DENIS APRN.ASSOCIATE MANAGER Service: ? Author Type: Nurse Practitioner Type: Progress Notes Filed: 05/22/2025 09:46 Note Text: CC: Patient presents with: Recheck: 6 months HPI Recording using ambient [employer] software for draft documentation of the visit was discussed with the patient/authorized tour sales representative; all questions welcomed and answered. Patient/authorized tour sales representative agreed to proceed Bj Day is an 84-year-old male with a history of HTN, hyperlipidemia, and cognitive declined, presenting for a 6-month follow-up, accompanied by his caregiver who is providing history on his behalf. Cognitive decline: - Recent increase in agitation and confusion. - Exhibits behaviors such as hitting himself and trash cans. - Has difficulty staying awake during the day; sleep is described as up and down. - Follow-up with neurology scheduled for July. - Taking Namenda. - Denies significant complaints Hypertension: - Well-controlled with amlodipine and hydrochlorothiazide. - Blood pressure today: 122/78 mmHg. - Monitors blood pressure monthly at home. Hyperlipidemia: - Managed with pravastatin. Prediabetes: - Recent A1c in the prediabetic range. 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 MEDICATIONS melatonin 3 mg tablet Take 1 tablet at 7PM nightly. memantine (NAMENDA) 10 mg tablet Take 1 tablet by mouth two times a day. amLODIPine (NORVASC) 5 mg tablet Take 1 tablet by mouth once daily. For hypertension. hydroCHLOROthiazide 12.5 mg capsule Take 1 capsule by mouth once daily. pravastatin (PRAVACHOL) 10 mg tablet Take 1 tablet by mouth daily at bedtime. For high cholesterol. mineral oil/hydrophil petrolatum (AQUAPHOR) oint Apply 1 application to affected area twice daily. For dry skin/eczema of right hand. FAMILY HISTORY Problem Relation Age of Onset No Known Problems Sister Cancer Mother Heart Father Social History Tobacco Use Smoking status: Every Day Types: Pipe Smokeless tobacco: Never Tobacco comments: 5-6 pipes per day Vaping Use Vaping status: Never Used Substance Use Topics Alcohol use: No Drug use: No BP 122/78 Pulse 68 Resp 14 Wt 89.2 kg (196 lb 10.4 oz) SpO2 98% BMI 31.60 kg/m? Physical Exam Vitals reviewed. Constitutional: Appearance: Normal appearance. Cardiovascular: Rate and Rhythm: Normal rate and regular rhythm. Heart sounds: Normal heart sounds. No murmur heard. Pulmonary: Effort: Pulmonary effort is normal. Breath sounds: Normal breath sounds. No wheezing, rhonchi or rales. Neurological: Mental Status: He is alert. Psychiatric: Mood and Affect: Mood and affect normal. Speech: Speech is delayed. Behavior: Behavior normal. Health maintenance reviewed with patient: DTaP,Tdap,Td Vaccine(1 - Tdap) due on 11/08/2025 RSV Vaccine(1 - 1-dose 75+ series) due on 11/08/2025 Shingrix Vaccine(1 of 2) due on 11/08/2025 Depression Screening due on 11/08/2025 Anxiety Screening due on 11/08/2025 Medicare Annual Wellness Visit due on 11/08/2025 Diabetes Screening due on 04/25/2028 Advance Directive Discussion Completed Pneumococcal Vaccine: 50+ Completed Influenza Vaccine Discontinued DATA REVIEWED: Most recent labs Latest Ref Rng 04/25/2025 WBC 3.70 - 11.00 k/uL 10.34 RBC 4.20 - 6.00 m/uL 4.37 Hemoglobin 13.0 - 17.0 g/dL 13.2 Hematocrit 39.0 - 51.0 % 39.2 MCV 80.0 - 100.0 fL 89.7 MCH 26.0 - 34.0 pg 30.2 MCHC 30.5 - 36.0 g/dL 33.7 RDW-CV 11.5 - 15.0 % 13.4 Platelet Count 150 - 400 k/uL 195 MPV 9.0 - 12.7 fL 11.2 Absolute nRBC <0.01 k/uL <0.01 Hemoglobin A1C 4.3 - 5.6 % 6.1 (H) Estimated Average Glucose mg/dL 128 TSH 0.270 - 4.200 mIU/L 2.990 Latest Ref Rng 11/09/2024 Protein, Total 6.3 - 8.0 g/dL 7.6 Albumin 3.9 - 4.9 g/dL 4.1 Calcium 8.5 - 10.2 mg/dL 9.4 Bilirubin, Total 0.2 - 1.3 mg/dL 0.3 Alkaline Phosphatase 38 - 113 U/L 93 AST 14 - 40 U/L 21 ALT 10 - 54 U/L 19 Glucose 74 - 99 mg/dL 115 (H) BUN 9 - 24 mg/dL 18 Creatinine 0.73 - 1.22 mg/dL 0.89 Sodium 136 - 144 mmol/L 140 Potassium 3.7 - 5.1 mmol/L 3.8 Chloride 98 - 107 mmol/L 105 CO2 22 - 30 mmol/L 24 Anion Gap 8 - 15 mmol/L 11 eGFR >=60 mL/min/1.73m? 83 Cholesterol, Total <200 mg/dL 169 Triglyceride <150 mg/dL 87 HDL (more content not included)... [facility] 05-22-2025 History of Present illness Narrative CC: Patient presents with: Recheck: 6 months HPI Recording using [employer] software for draft documentation of the visit was discussed with the patient/authorized tour sales representative; all questions welcomed and answered. Patient/authorized tour sales representative agreed to proceed Bj Day is an 84-year-old male with a history of HTN, hyperlipidemia, and cognitive declined, presenting for a 6-month follow-up, accompanied by his caregiver who is providing history on his behalf. Cognitive decline: - Recent increase in agitation and confusion. - Exhibits behaviors such as hitting himself and trash cans. - Has difficulty staying awake during the day; sleep is described as up and down. - Follow-up with neurology scheduled for July. - Taking Namenda. - Denies significant complaints Hypertension: - Well-controlled with amlodipine and hydrochlorothiazide. - Blood pressure today: 122/78 mmHg. - Monitors blood pressure monthly at home. Hyperlipidemia: - Managed with pravastatin. Prediabetes: - Recent A1c in the prediabetic range. 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 MEDICATIONS melatonin 3 mg tablet Take 1 tablet at 7PM nightly. memantine (NAMENDA) 10 mg tablet Take 1 tablet by mouth two times a day. amLODIPine (NORVASC) 5 mg tablet Take 1 tablet by mouth once daily. For hypertension. hydroCHLOROthiazide 12.5 mg capsule Take 1 capsule by mouth once daily. pravastatin (PRAVACHOL) 10 mg tablet Take 1 tablet by mouth daily at bedtime. For high cholesterol. mineral oil/hydrophil petrolatum (AQUAPHOR) oint Apply 1 application to affected area twice daily. For dry skin/eczema of right hand. FAMILY HISTORY Problem Relation Age of Onset No Known Problems Sister Cancer Mother Heart Father Social History Tobacco Use Smoking status: Every Day Types: Pipe Smokeless tobacco: Never Tobacco comments: 5-6 pipes per day Vaping Use Vaping status: Never Used Substance Use Topics Alcohol use: No Drug use: No BP 122/78 Pulse 68 Resp 14 Wt 89.2 kg (196 lb 10.4 oz) SpO2 98% BMI 31.60 kg/m Physical Exam Vitals reviewed. Constitutional: Appearance: Normal appearance. Cardiovascular: Rate and Rhythm: Normal rate and regular rhythm. Heart sounds: Normal heart sounds. No murmur heard. Pulmonary: Effort: Pulmonary effort is normal. Breath sounds: Normal breath sounds. No wheezing, rhonchi or rales. Neurological: Mental Status: He is alert. Psychiatric: Mood and Affect: Mood and affect normal. Speech: Speech is delayed. Behavior: Behavior normal. Health maintenance reviewed with patient: DTaP,Tdap,Td Vaccine(1 - Tdap) due on 11/08/2025 RSV Vaccine(1 - 1-dose 75+ series) due on 11/08/2025 Shingrix Vaccine(1 of 2) due on 11/08/2025 Depression Screening due on 11/08/2025 Anxiety Screening due on 11/08/2025 Medicare Annual Wellness Visit due on 11/08/2025 Diabetes Screening due on 04/25/2028 Advance Directive Discussion Completed Pneumococcal Vaccine: 50+ Completed Influenza Vaccine Discontinued DATA REVIEWED: Most recent labs Latest Ref Rng 04/25/2025 WBC 3.70 - 11.00 k/uL 10.34 RBC 4.20 - 6.00 m/uL 4.37 Hemoglobin 13.0 - 17.0 g/dL 13.2 Hematocrit 39.0 - 51.0 % 39.2 MCV 80.0 - 100.0 fL 89.7 MCH 26.0 - 34.0 pg 30.2 MCHC 30.5 - 36.0 g/dL 33.7 RDW-CV 11.5 - 15.0 % 13.4 Platelet Count 150 - 400 k/uL 195 MPV 9.0 - 12.7 fL 11.2 Absolute nRBC <0.01 k/uL <0.01 Hemoglobin A1C 4.3 - 5.6 % 6.1 (H) Estimated Average Glucose mg/dL 128 TSH 0.270 - 4.200 mIU/L 2.990 Latest Ref Rng 11/09/2024 Protein, Total 6.3 - 8.0 g/dL 7.6 Albumin 3.9 - 4.9 g/dL 4.1 Calcium 8.5 - 10.2 mg/dL 9.4 Bilirubin, Total 0.2 - 1.3 mg/dL 0.3 Alkaline Phosphatase 38 - 113 U/L 93 AST 14 - 40 U/L 21 ALT 10 - 54 U/L 19 Glucose 74 - 99 mg/dL 115 (H) BUN 9 - 24 mg/dL 18 Creatinine 0.73 - 1.22 mg/dL 0.89 Sodium 136 - 144 mmol/L 140 Potassium 3.7 - 5.1 mmol/L 3.8 Chloride 98 - 107 mmol/L 105 CO2 22 - 30 mmol/L 24 Anion Gap 8 - 15 mmol/L 11 eGFR >=60 mL/min/1.73m 83 Cholesterol, Total <200 mg/dL 169 Triglyceride <150 mg/dL 87 HDL Cholesterol >39 mg/dL 42 Non HDL Cholesterol <130 mg/dL 127 Fasting Time hrs 12 VLDL Cholesterol <30 mg/dL 17 TC:HDL Ratio <5.10 4.02 LDL Cholesterol, Calculated <100 mg/dL 110 (H) LDL:HDL Ratio <2.54 2.62 (H) Assessment/Plan 1. Primary hypertension (I10) - Blood pressure well controlled (122/78 mmHg); weight stable at 196 lbs. - Continue amlodipine and hydrochlorothiazide as prescribed. - Monthly home BP monitoring to continue. 2. Hyperlipidemia, unspecified hyperlipidemia type (E78.5) - Continue pravastatin as prescribed. 3. Unspecified intellectual disabilities (F79) 4. Cognitive decline (R41.89) - Ongoing behavioral symptoms and cognitive decline consistent with dementia. - Continue Namenda as prescribed. - Discussed limitations of current dementia medications and potential need for psychiatry referral if behaviors become dangerous. - Follow-up with neurology in July. 5. Impaired glucose metabolism (R73.09) - Recent A1c in pre-diabetic range with slight increase. - Provided printout of recent lab results. Prescription instructions reviewed with patient as applicable. Potential red flag symptoms discussed with the patient. Reviewed appropriate action plan to take if red flag symptoms occur. Patient agreeable to treatment plan. Queta Denis APRN.WATSON documented in this encounter [facility] 05-22-2025 Instructions Queta Denis APRN.WATSON - 05/22/2025 9:19 AM EDT - Stay well-hydrated, especially when outside in hot weather--offer water or flavored water regularly. - Limit time in direct sun on very hot days; sit in shaded or indoor areas to avoid overheating. - If memory-related behaviors worsen or pose a safety risk, a psychiatry referral may be necessary documented in this encounter [facility] 05-03-2025 Nael Krueger APRN.CNP - 05/03/2025 8:38 AM EDT ASSESSMENT/PLAN: 1. Bilateral impacted cerumen - ICD9: 380.4, ICD10: H61.23 Ear irrigation with water and syringe performed by nursing staff, Patient tolerated well. Physicial exam revealed Bilateral cerumen impaction which was cleaned. Bilateral ear canal and TM within normal limits after ear cleaning. After the ear was cleaned, patient felt moderate relief of ear blockage. Follow up PRN, if further problems. - AMBULATORY EAR LAVAGE/IRRIGATION Nael Gilliland APRN.WATSON -I have reviewed and updated with the patient: allergies, VS, current medications, Past Medical History,Past Surgical History,Past Family Medical History, Past Social History. - Patient education provided today - Discussed with patient medications that are indicated and how to use the medications and what the potential side effects are. - Warning signs of worsening condition explained to patient -Instructed to follow up with PCP if symptoms not improving in next 2-3 days - Patient left in stable condition after questions answered and patient verbalizes understanding - Instructed to go to Emergency Department right away with any severe worsening chest pain, shortness of breath, headache, dizziness, weakness, numbness,leg swelling , tingling, problems walking or speaking or any other concerning symptoms Ear wax buildup and blockage (cerumen impaction) What is ear wax? Ear wax, also called cerumen, is made by the body to protect the ears. The ear wax has both lubricating and antibacterial properties. Most of the time, the old ear wax is moved through the ear canal by motions from chewing and other jaw movements and as the skin of the ear canal grows from the inside out. At that time, it reaches the outside of the ear and flakes off. Ear wax is produced in the outer part of the ear canal, not deep inside the ear. What does it mean when ear wax becomes impacted? We say that ear wax is impacted when it has built up in the ear canal to such a point that there may be signs that something is not quite right. It is important to note that, for most people, ears might never need cleaning--they are designed to clean themselves. Ear wax buildup and blockage often happens when people use items like cotton swabs or meliton pins to try to clean their ears. This only pushes the ear wax farther into the ears and can also cause injury to the ear. What are the symptoms of ear wax impaction? A feeling of fullness in the ear Pain in the ear Difficulty hearing, which may continue to worsen Ringing in the ear (tinnitus) A feeling of itchiness in the ear Discharge from the ear Odor coming from the ear Dizziness Who experiences ear wax buildup? Ear wax buildup can happen to anyone. However, it is more likely to occur in: People who use hearing aids or ear plugs People who put cotton swabs or other items into their ears Older people People with developmental disabilities People with ear canals shaped in such a way as to interfere with natural wax removal How is ear wax impaction diagnosed? Your health care provider can look into your ears with a special instrument, called an otoscope, to see if ear wax buildup is present. How is ear wax impaction treated? Ear wax can be removed in several ways; some of these methods can be done at home. Cleaning the outside of the ear by wiping with a cloth. Putting cerumenolytic solutions (solutions to dissolve wax) into the ear canal--these solutions include mineral oil, baby oil, glycerin, peroxide-based ear drops (such as Debrox ), and saline solution. Irrigating or syringing the ear--this involves using a syringe to rinse out the ear canal with water or saline, generally after the wax has been softened or dissolved by a cerumenolytic. Removing the wax manually using special instruments--this should be done only by a health care provider who might use a cerumen spoon, forceps, or suction device. Note: Irrigation should not be done by or to any persons who have, or suspect they have, a perforation (hole) in their eardrum or tubes in the affected ear(s). Commercially available suction devices for home use (such as Wax-Vac) are not effective for most people and are therefore not recommended. Ear candles, which are advertised as a natural method to remove ear wax, are not only ineffective but can cause injury to the ear. Injuries include merrill to the external ear and ear canal and perforation of the eardrum. What are possible complications of ear wax impaction? If left untreated, excessive ear wax may cause symptoms of ear wax impaction to become worse. These symptoms might include hearing loss, ear irritation, etc. A build-up of ear wax might also make it difficult to see into the ear, which may result in potential problems going undiagnosed. How can ear wax impaction be prevented? Do not stick anything into your ears to clean them. Use cotton swabs only on the outside of the ear. If you have a severe enough problem with ear wax that you need to have it removed by a health professional more than once a year, discuss with them which method of prevention (if any) may work best for you. References [place] [employer]--Head and Neck [employer]. Earwax Accessed 10/11/2013. [place] [employer]. Nothing Smaller Than Your Elbow, Please Accessed 10/11/2013. Copyright 9307-3052 [facility]. All rights reserved documented in this encounter [facility] 05-03-2025 Note HNO ID: [id number] Author: NAEL GILLILAND APRN.ASSOCIATE MANAGER Service: ? Author Type: Nurse Practitioner Type: Progress Notes Filed: 05/03/2025 08:50 Note Text: [facility] Subjective Bj Day is a 84 year old male c/o ear wax occlusion bilaterally, sent by fpc, baseline mental status, up to table without loss of balance, steady gait, seen at doctor's office last week but didn't have time to clean out Patient presents with: Earwax: Bilat ear impacted with wax, was seen last week and doc was unable to clean out , having balance issues The history is provided by the patient and the fpc. Ear Problem There is pain in both ears. This is a new problem. The current episode started 1 to 4 weeks ago. The problem occurs constantly. The problem has been unchanged. There has been no fever. Pertinent negatives include no coughing. He has tried nothing for the symptoms. Review of Systems Constitutional: Negative for chills, fatigue and fever. HENT: Positive for ear pain. Respiratory: Negative for cough and shortness of breath. Objective BP 135/75 Pulse 64 Temp 36.4 ?C (97.6 ?F) Resp 18 Wt 89 kg (196 lb 3.4 oz) SpO2 99% BMI 31.53 kg/m? Physical Exam Vitals and nursing note reviewed. Constitutional: Appearance: Normal appearance. HENT: Right Ear: Tympanic membrane, ear canal and external ear normal. There is impacted cerumen. Left Ear: Tympanic membrane, ear canal and external ear normal. There is impacted cerumen. Nose: Nose normal. Mouth/Throat: Lips: [place]. Mouth: Mucous membranes are moist. Pharynx: Oropharynx is clear. Eyes: Conjunctiva/sclera: Conjunctivae normal. Pulmonary: Effort: Pulmonary effort is normal. Lymphadenopathy: Cervical: No cervical adenopathy. Neurological: Mental Status: He is alert. {ASSESSMENT/PLAN: 1. Bilateral impacted cerumen - ICD9: 380.4, ICD10: H61.23 Ear irrigation with water and syringe performed by nursing staff, Patient tolerated well. Physicial exam revealed Bilateral cerumen impaction which was cleaned. Bilateral ear canal and TM within normal limits after ear cleaning. After the ear was cleaned, patient felt moderate relief of ear blockage. Follow up PRN, if further problems. - AMBULATORY EAR LAVAGE/IRRIGATION Nael Gilliland, [employer] DISTRICT MANAGER.ASSOCIATE MANAGER -I have reviewed and updated with the patient: allergies, VS, current medications, Past Medical History,Past Surgical History,Past Family Medical History, Past Social History. - Patient education provided today - Discussed with patient medications that are indicated and how to use the medications and what the potential side effects are. - Warning signs of worsening condition explained to patient -Instructed to follow up with PCP if symptoms not improving in next 2-3 days - Patient left in stable condition after questions answered and patient verbalizes understanding - Instructed to go to Emergency Department right away with any severe worsening chest pain, shortness of breath, headache, dizziness, weakness, numbness,leg swelling , tingling, problems walking or speaking or any other concerning symptoms Differential Diagnoses - cerumen impaction is more likely for the following reason(s): suggested by HANDP - otitis externa is less likely for the following reason(s): HANDP not suggestive [facility] 05-03-2025 History of Present illness Narrative [facility] Rodriguez Bj Day is a 84 year old male c/o ear wax occlusion bilaterally, sent by fpc, baseline mental status, up to table without loss of balance, steady gait, seen at doctor's office last week but didn't have time to clean out Patient presents with: Earwax: Bilat ear impacted with wax, was seen last week and doc was unable to clean out , having balance issues The history is provided by the patient and the fpc. Ear Problem There is pain in both ears. This is a new problem. The current episode started 1 to 4 weeks ago. The problem occurs constantly. The problem has been unchanged. There has been no fever. Pertinent negatives include no coughing. He has tried nothing for the symptoms. Review of Systems Constitutional: Negative for chills, fatigue and fever. HENT: Positive for ear pain. Respiratory: Negative for cough and shortness of breath. Objective BP 135/75 Pulse 64 Temp 36.4 C (97.6 F) Resp 18 Wt 89 kg (196 lb 3.4 oz) SpO2 99% BMI 31.53 kg/m Physical Exam Vitals and nursing note reviewed. Constitutional: Appearance: Normal appearance. HENT: Right Ear: Tympanic membrane, ear canal and external ear normal. There is impacted cerumen. Left Ear: Tympanic membrane, ear canal and external ear normal. There is impacted cerumen. Nose: Nose normal. Mouth/Throat: Lips: [place]. Mouth: Mucous membranes are moist. Pharynx: Oropharynx is clear. Eyes: Conjunctiva/sclera: Conjunctivae normal. Pulmonary: Effort: Pulmonary effort is normal. Lymphadenopathy: Cervical: No cervical adenopathy. Neurological: Mental Status: He is alert. {ASSESSMENT/PLAN: 1. Bilateral impacted cerumen - ICD9: 380.4, ICD10: H61.23 Ear irrigation with water and syringe performed by nursing staff, Patient tolerated well. Physicial exam revealed Bilateral cerumen impaction which was cleaned. Bilateral ear canal and TM within normal limits after ear cleaning. After the ear was cleaned, patient felt moderate relief of ear blockage. Follow up PRN, if further problems. - AMBULATORY EAR LAVAGE/IRRIGATION Nael Gilliland APRN.WATSON -I have reviewed and updated with the patient: allergies, VS, current medications, Past Medical History,Past Surgical History,Past Family Medical History, Past Social History. - Patient education provided today - Discussed with patient medications that are indicated and how to use the medications and what the potential side effects are. - Warning signs of worsening condition explained to patient -Instructed to follow up with PCP if symptoms not improving in next 2-3 days - Patient left in stable condition after questions answered and patient verbalizes understanding - Instructed to go to Emergency Department right away with any severe worsening chest pain, shortness of breath, headache, dizziness, weakness, numbness,leg swelling , tingling, problems walking or speaking or any other concerning symptoms Differential Diagnoses - cerumen impaction is more likely for the following reason(s): suggested by H&P - otitis externa is less likely for the following reason(s): H&P not suggestive documented in this encounter [facility] 04-30-2025 Telephone encounter Note Prescription Refill Information The patient has been identified by name and date of : Yes Caregiver verified no other encounters exist for this prescription request: Yes Caregiver confirmed with patient/requestor that no other refills are due, in the near future, with this provider at this time: Yes The last office visit in the department: 05/05/24 with WRocioN Does the patient have a future office visit with this provider/department: Yes-05/22/25 with Requested Prescriptions Pending Prescriptions Disp Refills melatonin 3 mg tablet 90 tablet 3 Sig: Take 1 tablet at 7PM nightly. memantine (NAMENDA) 10 mg tablet 180 tablet 3 Sig: Take 1 tablet by mouth two times a day. Kailey Bolden LPN April 30, 2025 3:23 PM [facility] 04-30-2025 Miscellaneous Notes Prescription Refill Information The patient has been identified by name and date of : Yes Caregiver verified no other encounters exist for this prescription request: Yes Caregiver confirmed with patient/requestor that no other refills are due, in the near future, with this provider at this time: Yes The last office visit in the department: 05/05/24 with WJN Does the patient have a future office visit with this provider/department: Yes-05/22/25 with Requested Prescriptions Pending Prescriptions Disp Refills melatonin 3 mg tablet 90 tablet 3 Sig: Take 1 tablet at 7PM nightly. memantine (NAMENDA) 10 mg tablet 180 tablet 3 Sig: Take 1 tablet by mouth two times a day. Kailey Bolden LPN April 30, 2025 3:23 PM Prescription Refill Information The patient has been identified by name and date of : Yes Caregiver verified no other encounters exist for this prescription request: Yes Caregiver confirmed with patient/requestor that no other refills are due, in the near future, with this provider at this time: Yes The last office visit in the department: 05-05-2024 Does the patient have a future office visit with this provider/department: Yes memantine (NAMENDA) 10 mg tablet melatonin 3 mg tablet Brianna Rodas April 30, 2025 2:58 PM documented in this encounter [facility] 04-30-2025 Telephone encounter Note Prescription Refill Information The patient has been identified by name and date of : Yes Caregiver verified no other encounters exist for this prescription request: Yes Caregiver confirmed with patient/requestor that no other refills are due, in the near future, with this provider at this time: Yes The last office visit in the department: 05-05-2024 Does the patient have a future office visit with this provider/department: Yes memantine (NAMENDA) 10 mg tablet melatonin 3 mg tablet Brianna Rodas April 30, 2025 2:58 PM [facility] 04-25-2025 Note HNO ID: [id number] Author: QUETA DENIS APRN.WATSON Service: ? Author Type: Nurse Practitioner Type: Progress Notes Filed: 04/25/2025 16:14 Note Text: CC: Patient presents with: Balance/Incoordination: Unsteady gait HPI Recording using ambient AI software for draft documentation of the visit was discussed with the patient/authorized tour sales representative; all questions welcomed and answered. Patient/authorized tour sales representative agreed to proceed Bj Day is an 84-year-old male, with a history of dementia, for evaluation of unsteady gait and possible cerumen impaction. He is accompanied by a caregiver, who is providing history on his behalf. Bj's caregiver reports a recent onset of unsteady gait, described as a shuffling walk, which has acutely worsened over the past week. This change in gait was first noticed after a podiatry visit last month. Bj has not experienced any falls or near falls, and there have been no observed changes in speech, facial drooping, or difficulty with fine motor tasks. He denies any pain in his legs or head and has not required the use of a walker or cane. There is no history of hip fractures. Bj has a history of nocturnal confusion, which has not acutely worsened. He has been sleeping more than usual over the past week. There are no new medications. Bj has a history of prostate issues but denies urinary incontinence and is urinating normally. He has not been urinating more frequently than usual. Bj's caregiver also reports concerns about possible cerumen impaction, noting that Bj has been less responsive to auditory stimuli. There have been no observed behaviors such as digging at the ears. 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 MEDICATIONS amLODIPine (NORVASC) 5 mg tablet Take 1 tablet by mouth once daily. For hypertension. hydroCHLOROthiazide 12.5 mg capsule Take 1 capsule by mouth once daily. pravastatin (PRAVACHOL) 10 mg tablet Take 1 tablet by mouth daily at bedtime. For high cholesterol. memantine (NAMENDA) 10 mg tablet Take 1 tablet by mouth two times a day. melatonin 3 mg tablet Take 1 tablet at 7PM nightly. mineral oil/hydrophil petrolatum (AQUAPHOR) oint Apply 1 application to affected area twice daily. For dry skin/eczema of right hand. FAMILY HISTORY Problem Relation Age of Onset No Known Problems Sister Cancer Mother Heart Father Social History Tobacco Use Smoking status: Every Day Types: Pipe Smokeless tobacco: Never Tobacco comments: 5-6 pipes per day Vaping Use Vaping status: Never Used Substance Use Topics Alcohol use: No Drug use: No BP 122/86 Pulse 81 Resp 16 Wt 89.4 kg (197 lb 1.5 oz) SpO2 96% BMI 31.67 kg/m? Physical Exam Vitals reviewed. Constitutional: General: He is not in acute distress. Appearance: He is not ill-appearing or toxic-appearing. Cardiovascular: Rate and Rhythm: Normal rate and regular rhythm. Heart sounds: Normal heart sounds. No murmur heard. Pulmonary: Effort: Pulmonary effort is normal. Breath sounds: Normal breath sounds. No wheezing, rhonchi or rales. Skin: General: Skin is warm and dry. Neurological: Mental Status: He is alert. Motor: Motor function is intact. Gait: Gait abnormal (slow, shuffling; steady). Deep Tendon Reflexes: Reflexes are normal and symmetric. Comments: Some parts of neuro were not done due to cognitive impairment Psychiatric: Mood and Affect: Mood normal. DATA REVIEWED: urine dip today in office Latest Ref Rng 04/25/2025 GLUCOSE UA (POCT) Negative mg/dL Negative BILIRUBIN UA (POCT) Negative Negative KETONE UA (POCT) Negative mg/dL Negative SPECIFIC GRAVITY UA (POCT) 1.005 - 1.030 1.025 HEMOGLOBIN/BLOOD UA (POCT) Negative Negative PH UA (POCT) 4.5 - 8.0 5.5 PROTEIN UA (POCT) Negative mg/dL Negative UROBILINOGEN UA (POCT) Normal E.U./dL 0.2 NITRITE UA (POCT) Negative Negative LEUKOCYTES UA (POCT) Negative Negative COLOR UA (POCT) Yellow CLARITY UA (POCT) Clear Assessment/Plan 1. Unsteady gait (R26.81) Gait abnormality (R26.9) Recent onset of unsteady gait and shuffling, noted to be slower than usual. No falls or near falls reported. No history of hip fractures or use of assistive devices. No acute changes in confusion o (more content not included)... [facility] 04-25-2025 History of Present illness Narrative CC: Patient presents with: Balance/Incoordination: Unsteady gait HPI Recording using ambient [employer] software for draft documentation of the visit was discussed with the patient/authorized tour sales representative; all questions welcomed and answered. Patient/authorized tour sales representative agreed to proceed Bj Day is an 84-year-old male, with a history of dementia, for evaluation of unsteady gait and possible cerumen impaction. He is accompanied by a caregiver, who is providing history on his behalf. Bj's caregiver reports a recent onset of unsteady gait, described as a shuffling walk, which has acutely worsened over the past week. This change in gait was first noticed after a podiatry visit last month. Bj has not experienced any falls or near falls, and there have been no observed changes in speech, facial drooping, or difficulty with fine motor tasks. He denies any pain in his legs or head and has not required the use of a walker or cane. There is no history of hip fractures. Bj has a history of nocturnal confusion, which has not acutely worsened. He has been sleeping more than usual over the past week. There are no new medications. Bj has a history of prostate issues but denies urinary incontinence and is urinating normally. He has not been urinating more frequently than usual. Bj's caregiver also reports concerns about possible cerumen impaction, noting that Bj has been less responsive to auditory stimuli. There have been no observed behaviors such as digging at the ears. 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 MEDICATIONS amLODIPine (NORVASC) 5 mg tablet Take 1 tablet by mouth once daily. For hypertension. hydroCHLOROthiazide 12.5 mg capsule Take 1 capsule by mouth once daily. pravastatin (PRAVACHOL) 10 mg tablet Take 1 tablet by mouth daily at bedtime. For high cholesterol. memantine (NAMENDA) 10 mg tablet Take 1 tablet by mouth two times a day. melatonin 3 mg tablet Take 1 tablet at 7PM nightly. mineral oil/hydrophil petrolatum (AQUAPHOR) oint Apply 1 application to affected area twice daily. For dry skin/eczema of right hand. FAMILY HISTORY Problem Relation Age of Onset No Known Problems Sister Cancer Mother Heart Father Social History Tobacco Use Smoking status: Every Day Types: Pipe Smokeless tobacco: Never Tobacco comments: 5-6 pipes per day Vaping Use Vaping status: Never Used Substance Use Topics Alcohol use: No Drug use: No BP 122/86 Pulse 81 Resp 16 Wt 89.4 kg (197 lb 1.5 oz) SpO2 96% BMI 31.67 kg/m Physical Exam Vitals reviewed. Constitutional: General: He is not in acute distress. Appearance: He is not ill-appearing or toxic-appearing. Cardiovascular: Rate and Rhythm: Normal rate and regular rhythm. Heart sounds: Normal heart sounds. No murmur heard. Pulmonary: Effort: Pulmonary effort is normal. Breath sounds: Normal breath sounds. No wheezing, rhonchi or rales. Skin: General: Skin is warm and dry. Neurological: Mental Status: He is alert. Motor: Motor function is intact. Gait: Gait abnormal (slow, shuffling; steady). Deep Tendon Reflexes: Reflexes are normal and symmetric. Comments: Some parts of neuro were not done due to cognitive impairment Psychiatric: Mood and Affect: Mood normal. DATA REVIEWED: urine dip today in office Latest Ref Rng 04/25/2025 GLUCOSE UA (POCT) Negative mg/dL Negative BILIRUBIN UA (POCT) Negative Negative KETONE UA (POCT) Negative mg/dL Negative SPECIFIC GRAVITY UA (POCT) 1.005 - 1.030 1.025 HEMOGLOBIN/BLOOD UA (POCT) Negative Negative PH UA (POCT) 4.5 - 8.0 5.5 PROTEIN UA (POCT) Negative mg/dL Negative UROBILINOGEN UA (POCT) Normal E.U./dL 0.2 NITRITE UA (POCT) Negative Negative LEUKOCYTES UA (POCT) Negative Negative COLOR UA (POCT) Yellow CLARITY UA (POCT) Clear Assessment/Plan 1. Unsteady gait (R26.81) Gait abnormality (R26.9) Recent onset of unsteady gait and shuffling, noted to be slower than usual. No falls or near falls reported. No history of hip fractures or use of assistive devices. No acute changes in confusion or sleep patterns. Physical exam reveals normal strength and coordination. - Ordered blood work to check thyroid function; results pending. - Monitor for any further changes or worsening symptoms. 2. Sleepiness (R40.0) increase in sleepiness reported, napping more often 3. Impaired glucose metabolism (R73.09) Recheck 4. Impacted cerumen, bilateral (H61.23) Conductive hearing loss, bilateral (H90.0) Significant dry cerumen impaction noted bilaterally, contributing to conductive hearing loss. - Recommended use of Debrox drops to soften cerumen. - Scheduled follow-up for ear cleaning. Prescription instructions reviewed with patient as applicable. Potential red flag symptoms discussed with the patient. Reviewed appropriate action plan to take if red flag symptoms occur. Patient agreeable to treatment plan. Queta Denis APRN.WATSON documented in this encounter [facility] 04-25-2025 Instructions Queta Denis APRN.WATSON - 04/25/2025 3:53 PM EDT We discussed your concerns about Bj's unsteadiness and changes in his walking: - Based on today's evaluation, I believe these changes are likely related to aging and his dementia. There are no signs of acute issues such as infection or injury. - Physical therapy is not recommended at this time, as it would not be effective due to his dementia and difficulty following instructions. - Continue monitoring his walking and balance. If he begins to fall, has near falls, or shows significant worsening, please let us know. We discussed Bj's earwax buildup and hearing concerns: - I recommend using Debrox (or a similar [id number] earwax softening drop) in his ears as directed on the package. This will help soften the wax. - He has an appointment for routine follow-up with Dr. Melendez on 05/09, please don't start Debrox until one week before the appointment and they can attempt to clean out his ears at that time We discussed Bj's overall health: - His urine test today showed no signs of infection or other concerns. - Blood work was completed to check his thyroid and other factors. If there are any critical results, you will be notified. Otherwise, I will review the results and follow up with you on Wednesday. If you have any additional questions or concerns, please feel free to reach out. documented in this encounter [facility] 04-03-2025 Note HNO ID: [id number] Author: KAITLYNN GARCIA, ? Service: ? Author Type: Physician Type: Progress Notes Filed: 04/03/2025 13:30 Note Text: Initial Podiatric Office Visit: Chief Complaint: This 84 year old male who presents with chief complaint:callus and dystrophic toenails HPI Patient presents to clinic for evaluation of b/l feet Denies any major issues Has callus and dystrophic toenails of both feet requesting debridement No other complaints PAIN EVALUATION No data found in the last 1 encounters. 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 For hypertension. hydroCHLOROthiazide 12.5 mg capsule Take 1 capsule by mouth once daily. pravastatin (PRAVACHOL) 10 mg tablet Take 1 tablet by mouth daily at bedtime. For high cholesterol. memantine (NAMENDA) 10 mg tablet Take 1 tablet by mouth two times a day. melatonin 3 mg tablet Take 1 tablet at 7PM nightly. mineral oil/hydrophil petrolatum (AQUAPHOR) oint Apply 1 application to affected area twice daily. For dry skin/eczema of right hand. No current facility-administered medications for this visit. ALLERGIES No Known Allergies PAST SURGICAL HISTORY Procedure Laterality Date COLONOSCOPY FLX DX W/COLLJ SPEC WHEN PFRMD 08/17/2011 Colonoscopy RADIATION THERAPY 2008 prostate REMOVE CATARACT, INSERT LENS,EX 2011 lt and rt FAMILY HISTORY Problem Relation Age of Onset No Known Problems Sister Cancer Mother Heart Father Social History Tobacco Use Smoking status: Every Day Types: Pipe Smokeless tobacco: Never Tobacco comments: 5-6 pipes per day Vaping Use Vaping status: Never Used Substance Use Topics Alcohol use: No Drug use: No REVIEW OF SYSTEMS GENERAL: Negative for Malaise, significant weight loss, fever RESPIRATORY: Negative for cough, wheezing and shortness of breath CARDIOVASCULAR: Negative for chest pain, leg swelling and palpitations GI: Negative for abdominal discomfort, blood in stools or black stools and change in bowel habits : Negative for dysuria, frequency and incontinence MUSCULOSKELETAL: Negative for joint pain or swelling, back pain, and muscle pain. SKIN: Negative for lesions, rash, and itching. HEMATOLOGY/LYMPHOLOGY Negative for prolonged bleeding, bruising easily, and swollen nodes. ENDOCRINE: Negative for cold or heat intolerance, polyuria, polydipsia and goiter. NEURO: negative Physical Exam: Constitutional: Pt is a well developed 84 year old male who is alert, oriented and cooperative Eyes: Following during examination. No redness or drainage. Respiratory: RR normal and nonlabored. Even breathing. No evidence of distress or shortness of breath. Psychology: Patient is engaged during conversation. Normal affect and mood. Does not appear depressed or anxious during encounter. Vascular: Dorsalis pedis and posterior tibial pulses nonpalpable b/l Capillary Fill time < 5 seconds to digits 1-5 b/l Skin temperature warm to cool proximal to distal b/l Hair growth absent to digits Neurological: decreased light touch/epicritic sensation Vibratory sensation decreased b/l decreased protective sensation + significant neurological deficits Dermatological: Nails 1-5 b/l appear thick, discolored, dystrophic, painful. Webspaces clean and dry 1-4 b/l. Skin appears well hydrated and supple. good color, texture, turgor. No open lesions present. Callus present to distal 3rd toe b/l. No ulceration present Musculoskeletal/Orthopaedic: Patient has no pain to palpation of b/l feet Foot type is neutrla structurally AJ ROM is decreased with knee extended and flexed 1st MPJ is decreased when loaded and no pain or crepitus are noted with ROM. MTJ, STJ are full and free of pain and crepitus. +5/5 muscle strength dorsiflexion, plantarflexion, inversion, eversion b/l Radiographs: n/a ASSESSMENT: (B35.1) Onychomycosis (primary encounter diagnosis) (M79.675) Pain in toe of left foot (M79.674) Pain in toe of right foot (L84) Callus of foot Diminished pulses PLAN: Toenails 1-5 b/l debrided in length and thickness. Q8 modifier Callus reduced with dremmel Follow-up in 3 months or sooner if problems arise Kaitlynn Garcia DPM Podiatry [address] [facility] [address] Dept: [phone] Dept [facility] 04-03-2025 History of Present illness Narrative Initial Podiatric Office Visit: Chief Complaint: This 84 year old male who presents with chief complaint:callus and dystrophic toenails HPI Patient presents to clinic for evaluation of b/l feet Denies any major issues Has callus and dystrophic toenails of both feet requesting debridement No other complaints PAIN EVALUATION No data found in the last 1 encounters. 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 For hypertension. hydroCHLOROthiazide 12.5 mg capsule Take 1 capsule by mouth once daily. pravastatin (PRAVACHOL) 10 mg tablet Take 1 tablet by mouth daily at bedtime. For high cholesterol. memantine (NAMENDA) 10 mg tablet Take 1 tablet by mouth two times a day. melatonin 3 mg tablet Take 1 tablet at 7PM nightly. mineral oil/hydrophil petrolatum (AQUAPHOR) oint Apply 1 application to affected area twice daily. For dry skin/eczema of right hand. No current facility-administered medications for this visit. ALLERGIES No Known Allergies PAST SURGICAL HISTORY Procedure Laterality Date COLONOSCOPY FLX DX W/COLLJ SPEC WHEN PFRMD 08/17/2011 Colonoscopy RADIATION THERAPY 2008 prostate REMOVE CATARACT, INSERT LENS,EX 2011 lt and rt FAMILY HISTORY Problem Relation Age of Onset No Known Problems Sister Cancer Mother Heart Father Social History Tobacco Use Smoking status: Every Day Types: Pipe Smokeless tobacco: Never Tobacco comments: 5-6 pipes per day Vaping Use Vaping status: Never Used Substance Use Topics Alcohol use: No Drug use: No REVIEW OF SYSTEMS GENERAL: Negative for Malaise, significant weight loss, fever RESPIRATORY: Negative for cough, wheezing and shortness of breath CARDIOVASCULAR: Negative for chest pain, leg swelling and palpitations GI: Negative for abdominal discomfort, blood in stools or black stools and change in bowel habits : Negative for dysuria, frequency and incontinence MUSCULOSKELETAL: Negative for joint pain or swelling, back pain, and muscle pain. SKIN: Negative for lesions, rash, and itching. HEMATOLOGY/LYMPHOLOGY Negative for prolonged bleeding, bruising easily, and swollen nodes. ENDOCRINE: Negative for cold or heat intolerance, polyuria, polydipsia and goiter. NEURO: negative Physical Exam: Constitutional: Pt is a well developed 84 year old male who is alert, oriented and cooperative Eyes: Following during examination. No redness or drainage. Respiratory: RR normal and nonlabored. Even breathing. No evidence of distress or shortness of breath. Psychology: Patient is engaged during conversation. Normal affect and mood. Does not appear depressed or anxious during encounter. Vascular: Dorsalis pedis and posterior tibial pulses nonpalpable b/l Capillary Fill time < 5 seconds to digits 1-5 b/l Skin temperature warm to cool proximal to distal b/l Hair growth absent to digits Neurological: decreased light touch/epicritic sensation Vibratory sensation decreased b/l decreased protective sensation + significant neurological deficits Dermatological: Nails 1-5 b/l appear thick, discolored, dystrophic, painful. Webspaces clean and dry 1-4 b/l. Skin appears well hydrated and supple. good color, texture, turgor. No open lesions present. Callus present to distal 3rd toe b/l. No ulceration present Musculoskeletal/Orthopaedic: Patient has no pain to palpation of b/l feet Foot type is neutrla structurally AJ ROM is decreased with knee extended and flexed 1st MPJ is decreased when loaded and no pain or crepitus are noted with ROM. MTJ, STJ are full and free of pain and crepitus. +5/5 muscle strength dorsiflexion, plantarflexion, inversion, eversion b/l Radiographs: n/a ASSESSMENT: (B35.1) Onychomycosis (primary encounter diagnosis) (M79.675) Pain in toe of left foot (M79.674) Pain in toe of right foot (L84) Callus of foot Diminished pulses PLAN: Toenails 1-5 b/l debrided in length and thickness. Q8 modifier Callus reduced with dremmel Follow-up in 3 months or sooner if problems arise Kaitlynn Garcia DPM Podiatry [address] [facility] [address] Dept: [phone] Dept Patient presents with: Left Foot - New, foot check Right Foot - New, foot check Patient presents for foot check. Not a diabetic. Denies any pain to feet. Does have some callouses to bilateral feet as well as bilateral 3rd toes. documented in this encounter [facility] 04-03-2025 Note HNO ID: [id number] Author: NGUYEN JOHNSON RN Service: ? Author Type: Registered Nurse Type: Progress Notes Filed: 04/03/2025 13:30 Note Text: Patient presents with: Left Foot - New, foot check Right Foot - New, foot check Patient presents for foot check. Not a diabetic. Denies any pain to feet. Does have some callouses to bilateral feet as well as bilateral 3rd toes. [facility] 11-08-2024 Instructions Queta Denis, [employer] DISTRICT MANAGER.ASSOCIATE MANAGER - 11/08/2024 11:08 AM EST Screening schedule The following prevention plan is recommended: Shingrix Vaccine(1 of 2) Never done DTaP,Tdap,Td Vaccine(1 - Tdap) due on 05/08/2011 RSV Vaccine(1 - 1-dose 75+ series) Never done WHAT YOU CAN DO TO PREVENT FALLS Many falls can be prevented. By making some changes, you can lower your chances of falling. Four things YOU can do to prevent falls for you* and your caregiver 1. Begin a regular exercise program Exercise is one of the most important ways to lower your chances of falling. It makes you stronger and helps you feel better. Exercises that improve balance and coordination (like Augustus Chi) are the most helpful. Lack of exercise leads to weakness and increases your chances of falling. Ask your doctor or health care provider about the best type of exercise program for you. 2. Have your health care provider review your medicines Have your doctor or pharmacist review all the medicines you take, even [id number] medicines. As you get older, the way medicines work in your body can change. Some medicines, or combinations of medicines, can make you sleepy or dizzy and can cause you to fall. 3. Have your vision checked Have your eyes checked by an eye doctor at least once a year. You may be wearing the wrong glasses or have a condition like glaucoma or cataracts that limits your vision. Poor vision can increase your chances of falling. 4. Make your home safer About half of all falls happen at home. To make your home safer: Remove things you can trip over (like papers, books, clothes, and shoes) from stairs and places where you walk. Remove small throw rugs or use double-sided tape to keep the rugs from slipping. Keep items you use often in cabinets you can reach easily without using a step stool. Have grab bars put in next to your toilet and in the tub or shower. Use non-slip mats in the bathtub and on shower floors. Improve the lighting in your home. As you get older, you need brighter lights to see well. Hang light-weight curtains or shades to reduce glare. Have handrails and lights put in on all staircases. Wear shoes both inside and outside the house. Avoid going barefoot or wearing slippers. For more information, contact: Centers for Disease Control and Prevention www.cdc.gov/injury * This information may not apply if you have certain medical conditions. documented in this encounter [facility] 11-08-2024 Note HNO ID: [id number] Author: QUETA DENIS APRN.WATSON Service: ? Author Type: Nurse Practitioner Type: Progress Notes Filed: 11/08/2024 11:34 Note Text: Bj Day is a 84 year old male here for a Medicare wellness visit. Medicare Health Risk Assessment General Health Very good Exercise: Minutes/Day 0 min Exercise: Days/Week 0 days Alcohol: Daily Use Never Alcohol: Drinks/Day Patient does not drink Alcohol: 6 or more drinks Never Feel off balance No Concerns: Teeth/Dentures No Concerns: Sexual function No Troubled by feelings None of the above Frequency: Eating healthy diet Nearly every day ADLs requiring help Grocery shopping; Cooking; Bathing; Driving; Handling finances; Taking medications Safety precautions in home/vehicle Yes Smoke, vape, chews tobacco Yes, but I'm not ready to quit Difficulty hearing Yes Difficulty seeing No Current Providers Specialists: I have reviewed specialist-related care of the patient in the medical record. Current care team: Patient Care Team: Javy Melendez MD as PCP - General (Internal Medicine) Queta Denis APRN.CNP as [place] (Internal Medicine) Ophthalmology- [facility] Neurology- Dr. Bronson Medical/Family history review Reviewed and updated problem list, medical/surgical/family/social history, medications, and allergies. Opioid use review Opioid Medications (last 90 days) No data to display Anxiety/Depression screening PHQ-2 Score: 0 (Lower risk for depression) REID-2 Score: 0 (Lower risk for anxiety) Recommendation: no further intervention at this time Cognitive screening Cognitive screening reviewed and Patient has known cognitive impairment. Functional Observation Was the patient's Timed Up AND Go test unsteady or >= 12 seconds? No Advance Care Planning Patient was not able to provide a surrogate decision maker or written advance directives Measurements BP 134/74 Pulse 84 Resp 12 Ht 168 cm (5' 6.14) Wt 88.5 kg (195 lb 1.7 oz) SpO2 99% BMI 31.36 kg/m? Vision Screening: Follows with optometry/ophthalmology Assessment/Plan Medicare annual wellness visit, subsequent () - Counseled on healthy diet and regular exercise - Fall avoidance information provided - Personalized prevention plan provided - Discussed need for and benefit of weight loss. BMI 31.36 kg/(m2) Additional Concerns The following concerns were also discussed with the patient: Cognitive decline: he was started on Namenda by neurologist for possible dementia. He had CT brain and was supposed to follow-up this month but no showed appointment . Caregiver denies any behavioral issues or further cognitive decline that she is aware of. HTN-Medication changes:No Taking all medications as prescribed: Yes Side effects: No Home BP's: No Denies: headache, chest pain, palpitations, dyspnea, and peripheral edema. Last 3 Encounter BP Readings: Date: BP: 11/08/2024 134/74 05/29/2024 124/70 05/26/2024 152/78 PHYSICAL EXAM BP 134/74 Pulse 84 Resp 12 Ht 168 cm (5' 6.14) Wt 88.5 kg (195 lb 1.7 oz) SpO2 99% BMI 31.36 kg/m? GENERAL: well appearing, alert, in no acute distress CARDIOVASCULAR: regular rate and rhythm. No murmur, rubs or gallops. PULMONARY: clear to auscultation, no wheezing, rhonchi, or crackles ASSESSMENT/PLAN: 1. Medicare annual wellness visit, subsequent - ICD9: V70.0, ICD10: Z00.00 (primary diagnosis) See medicare wellness plan 2. Primary hypertension - ICD9: 401.9, ICD10: I10 - Controlled - Continue current medications - Recommend home blood pressure monitoring, to bring results to next visit - Encouraged sodium restriction, DASH or Mediterranean diet - Recommend regular aerobic exercise - COMPREHENSIVE METABOLIC PANEL - COMPLETE BLOOD COUNT 3. Hyperlipidemia, unspecified hyperlipidemia type - ICD9: 272.4, ICD10: E78.5 - Control undetermined, due for labs - Continue current medications - LIPID PANEL BASIC - COMPREHENSIVE METABOLIC PANEL 4. Unspecified intellectual disabilities - ICD9: 319, ICD10: F79 stable 5. Cognitive decline - ICD9: 294.9, ICD10: R41.89 Stable 6. Screening for depression - ICD9: V79.0, ICD10: Z13.31 - DEPRESSION SCREENING 7. Encounter for screening examination for other mental health and behavioral disorders - ICD9: V79.8, ICD10: Z13.39 - ANXIETY SCREENING Queta Denis APRN.WATSON [facility] 11-08-2024 History of Present illness Narrative Images from the original note were not included. Bj Day is a 84 year old male here for a Medicare wellness visit. Medicare Health Risk Assessment General Health Very good Exercise: Minutes/Day 0 min Exercise: Days/Week 0 days Alcohol: Daily Use Never Alcohol: Drinks/Day Patient does not drink Alcohol: 6 or more drinks Never Feel off balance No Concerns: Teeth/Dentures No Concerns: Sexual function No Troubled by feelings None of the above Frequency: Eating healthy diet Nearly every day ADLs requiring help Grocery shopping; Cooking; Bathing; Driving; Handling finances; Taking medications Safety precautions in home/vehicle Yes Smoke, vape, chews tobacco Yes, but I'm not ready to quit Difficulty hearing Yes Difficulty seeing No Current Providers Specialists: I have reviewed specialist-related care of the patient in the medical record. Current care team: Patient Care Team: Javy Melendez MD as PCP - General (Internal Medicine) Queta Denis APRN.WATSON as [place] (Internal Medicine) Ophthalmology- [facility] Neurology- Dr. Bronson Medical/Family history review Reviewed and updated problem list, medical/surgical/family/social history, medications, and allergies. Opioid use review Opioid Medications (last 90 days) No data to display Anxiety/Depression screening PHQ-2 Score: 0 (Lower risk for depression) REID-2 Score: 0 (Lower risk for anxiety) Recommendation: no further intervention at this time Cognitive screening Cognitive screening reviewed and Patient has known cognitive impairment. Functional Observation Was the patient's Timed Up & Go test unsteady or >= 12 seconds? No Advance Care Planning Patient was not able to provide a surrogate decision maker or written advance directives Measurements BP 134/74 Pulse 84 Resp 12 Ht 168 cm (5' 6.14) Wt 88.5 kg (195 lb 1.7 oz) SpO2 99% BMI 31.36 kg/m Vision Screening: Follows with optometry/ophthalmology Assessment/Plan Medicare annual wellness visit, subsequent () - Counseled on healthy diet and regular exercise - Fall avoidance information provided - Personalized prevention plan provided - Discussed need for and benefit of weight loss. BMI 31.36 kg/(m^2) Additional Concerns The following concerns were also discussed with the patient: Cognitive decline: he was started on Namenda by neurologist for possible dementia. He had CT brain and was supposed to follow-up this month but no showed appointment . Caregiver denies any behavioral issues or further cognitive decline that she is aware of. HTN-Medication changes:No Taking all medications as prescribed: Yes Side effects: No Home BP's: No Denies: headache, chest pain, palpitations, dyspnea, and peripheral edema. Last 3 Encounter BP Readings: Date: BP: 11/08/2024 134/74 05/29/2024 124/70 05/26/2024 152/78 PHYSICAL EXAM BP 134/74 Pulse 84 Resp 12 Ht 168 cm (5' 6.14) Wt 88.5 kg (195 lb 1.7 oz) SpO2 99% BMI 31.36 kg/m GENERAL: well appearing, alert, in no acute distress CARDIOVASCULAR: regular rate and rhythm. No murmur, rubs or gallops. PULMONARY: clear to auscultation, no wheezing, rhonchi, or crackles ASSESSMENT/PLAN: 1. Medicare annual wellness visit, subsequent - ICD9: V70.0, ICD10: Z00.00 (primary diagnosis) See medicare wellness plan 2. Primary hypertension - ICD9: 401.9, ICD10: I10 - Controlled - Continue current medications - Recommend home blood pressure monitoring, to bring results to next visit - Encouraged sodium restriction, DASH or Mediterranean diet - Recommend regular aerobic exercise - COMPREHENSIVE METABOLIC PANEL - COMPLETE BLOOD COUNT 3. Hyperlipidemia, unspecified hyperlipidemia type - ICD9: 272.4, ICD10: E78.5 - Control undetermined, due for labs - Continue current medications - LIPID PANEL BASIC - COMPREHENSIVE METABOLIC PANEL 4. Unspecified intellectual disabilities - ICD9: 319, ICD10: F79 stable 5. Cognitive decline - ICD9: 294.9, ICD10: R41.89 Stable 6. Screening for depression - ICD9: V79.0, ICD10: Z13.31 - DEPRESSION SCREENING 7. Encounter for screening examination for other mental health and behavioral disorders - ICD9: V79.8, ICD10: Z13.39 - ANXIETY SCREENING Queta Denis APRN.ASSOCIATE MANAGER documented in this encounter [facility] 11-02-2024 Telephone encounter Note Prescription Refill Information The patient has been identified by name and date of : Yes Caregiver verified no other encounters exist for this prescription request: Yes Caregiver confirmed with patient/requestor that no other refills are due, in the near future, with this provider at this time: Yes The last office visit in the department: 05-26-24 Does the patient have a future office visit with this provider/department: Yes Requested Prescriptions Pending Prescriptions Disp Refills amLODIPine (NORVASC) 5 mg tablet 90 tablet 3 Sig: Take 1 tablet by mouth once daily. For hypertension. hydroCHLOROthiazide 12.5 mg capsule 90 capsule 3 Sig: Take 1 capsule by mouth once daily. pravastatin (PRAVACHOL) 10 mg tablet 90 tablet 3 Sig: Take 1 tablet by mouth daily at bedtime. For high cholesterol. Betsy Brandon November 02, 2024 3:52 PM [facility] Work Phone: 11-02-2024 Miscellaneous Notes Prescription Refill Information The patient has been identified by name and date of : Yes Caregiver verified no other encounters exist for this prescription request: Yes Caregiver confirmed with patient/requestor that no other refills are due, in the near future, with this provider at this time: Yes The last office visit in the department: 05-26-24 Does the patient have a future office visit with this provider/department: Yes Requested Prescriptions Pending Prescriptions Disp Refills amLODIPine (NORVASC) 5 mg tablet 90 tablet 3 Sig: Take 1 tablet by mouth once daily. For hypertension. hydroCHLOROthiazide 12.5 mg capsule 90 capsule 3 Sig: Take 1 capsule by mouth once daily. pravastatin (PRAVACHOL) 10 mg tablet 90 tablet 3 Sig: Take 1 tablet by mouth daily at bedtime. For high cholesterol. Betsy Brandon November 02, 2024 3:52 PM documented in this encounter [facility] 06-30-2024 History of Present illness Narrative Episode Visit Count: 1 Therapist That Will Accept/Oversee The Plan Of Care: Sacha Domingo Start of Care Date: 06/28/24 Onset Date: 05/26/24 Plan of Care Certification Date: 06/28/24 Next Certification Due Date: 07/28/24 Patient Identified by Name and Date of : Yes REHABILITATION AND SPORTS THERAPY PHYSICAL THERAPY EVALUATION PLAN OF CARE: Assessment: Bj Day presents with chief complaint of R shoulder pain that interferes with nothing . He presents with impairments in range of motion. Patient did not complete the PROMIS (Patient Reported Outcome Measures Information System). Prognosis for therapy is Excellent due to: current objective clinical presentation . He will benefit from skilled therapy services to meet the goals established for this plan of care as noted below. Goals for Episode of Care: established 06/28/24 Dane in home exercise program. Caregiver displayed understanding, will svetlana as met. Time Frame for Goals and Treatment : 07/30/24 Planned Interventions, Frequency, and Duration: Current Frequency: 1 visit Duration: 1 visit Total Number of Visits Planned: 1 Planned Treatment Interventions: Therapeutic exercise (44540), Self-mcfp management (81445) PLAN FOR NEXT VISIT: Patient with no pain currently, so he is appropriate to be discharged today with HEP to address minimal limitations in motion Patient demonstrates good understanding of plan of care and treatment. The above goals and plan of care were discussed and agreed upon by patient/family. SUBJECTIVE: Patient has had shoulder pain for a few weeks, but after starting on prednisone he has not had complaints. Here with general intern today due to cognitive deficits. Bj himself denies should pain currently and caregiver states he has not had pain for a few weeks now Functional Limitations: nothing Prior Level of Function: Independent without limitations Intake Information: Prescription present Pain: Pain Pain Level: 0 Pain Location: Shoulder - Right Post Treatment Pain Post Treatment Pain Level: 0 PROMIS Scales T-scores: mean of general population = 50. 5 points is clinically meaningfully difference Percentiles provide an indication of how the patient's score ranks in relation to the general population. Higher percentile rankings indicate better function/quality of life. 50th percentile is the average of the general population and indicates half of respondents had a worse score. OBJECTIVE MEASURES WITH LEVEL OF FUNCTION: UE AROM R UE AROM: WFL/minimal limitations L UE AROM: WFL UE and Cervical Strength R UE Strength: 4+/5 L UE Strength: 4+/5 Education: Education Learning/educational needs: Plan of Care TREATMENT: PT Treatment Interventions: Therapeutic Exercise Evaluation Therapeutic Exercise: 1: *Shoulder pulleys into flexion and scaption 3x10 2: *Wall slides 3x10 3: *Wall angels 3x10 Skilled Intervention: Patient was educated in proper exercise technique and purpose for exercises. Skilled judgment was used in selection of appropriate interventions. Provided written instruction for home exercise program to facilitate proper performance and compliance. Correct performance of therapeutic exercises was facilitated with verbal, visual, and tactile cuing. Billing Therapeutic Exercise Treatment Minutes: 10 Skilled Treatment Time Minutes (timed and untimed codes): 35 Total Session Time (minutes): 35 Session Start Time : 904 Session Stop Time : 939 Sacha Domingo PT Program_ID:[id number] Access Code: [email or web address] URL: [email or web address] Date: 06-28-2024 Prepared By: Sacha Domingo Program Notes Exercises - Seated Shoulder Flexion AAROM with Darya Behind - 1 x daily - 7 x weekly - 3 sets - 10 reps - Seated Shoulder Abduction AAROM with Darya Behind - 1 x daily - 7 x weekly - 3 sets - 10 reps - Shoulder Flexion Wall Slide with Towel - 1 x daily - 7 x weekly - 3 sets - 10 reps - Wall Washta - 1 x daily - 7 x weekly - 3 sets - 10 reps documented in this encounter [facility] 06-02-2024 Telephone encounter Note Phoned patient caregiver and went over results, notes from Queta Denis NP with understanding. [facility] 06-02-2024 Miscellaneous Notes Phoned patient caregiver and went over results, notes from Queta Denis AIRLINE TICKET AGENT with understanding. ----- Message from Queta Denis APRN.CNP sent at 06/02/2024 6:37 AM EDT ----- Please let the caregiver know urinalysis was normal. If his urinary symptoms persist recommend referral to urology Queta Denis APRN.CNP documented in this encounter [facility] 06-02-2024 Telephone encounter Note ----- Message from Queta Denis APRN.CNP sent at 06/02/2024 6:37 AM EDT ----- Please let the caregiver know urinalysis was normal. If his urinary symptoms persist recommend referral to urology Queta Denis APRN.CNP [facility] 05-29-2024 Brianna Ordonez APRN.CNP - 05/29/2024 4:17 PM EDT R.I.C.E. The general care of your injury includes the following: Resting, Icing, Compressing and Elevating the injured area. Remember this as RICE. REST: Limit the use of the injured body part. ICE: By applying ice to the affected area, swelling and pain can be reduced. Place some ice cubes in a re-sealable (Ziploc) bag and add some water. Put a thin washcloth between the bag and your skin. Apply the ice bag to the area for at least 20 minutes. Do this at least 4 times per day. Using the ice for longer times and more frequently is OK. NEVER APPLY ICE DIRECTLY TO THE SKIN. COMPRESS: Compression means to apply pressure around the injured area such as with a splint, cast or an benji bandage. Compression decreases swelling and improves comfort. Compression should be tight enough to relieve swelling but not so tight as to decrease circulation. Increasing pain, numbness, tingling, or change in skin color, are all signs of decreased circulation. ELEVATE: Elevate the injured part. For example, elevate your foot by placing it on a chair while sitting, or propping it up on pillows when lying down. documented in this encounter [facility] 05-29-2024 History of Present illness Narrative Radiology Service Progress Note PATIENT NAME: Bj Day DATE OF SERVICE: May 29, 2024 TIME: 3:56 PM PATIENT IDENTITY VERIFICATION COMPLETED USING TWO (2) IDENTIFIERS: Name and Date of confirmed by patient verbally. FALL SCREENING: Has the patient had 2 falls in the last year or 1 fall with injury or currently using an Ambulatory Assistive Device (Walker, Cane, Wheelchair, Crutches, etc.)? No PATIENT GENDER DATA: Male PATIENT RELEVANT IMPLANT DATA REVIEWED: Not Applicable PATIENT PRESENTS WITH AN IMPLANTABLE OR ATTACHED CATHODIC PROTECTION TECHNICIAN: No RADIOLOGY DEPARTMENT: General X-ray: Exam(s) Completed: Upper Extremity X-Ray(s): Shoulder, AP / TRUE AP / AXILLARY right and Humerus, right PERIPHERAL IV DATA: Not applicable SIGNED BY: RT Mark(R) May 29, 2024 3:56 PM documented in this encounter [facility] 05-29-2024 History of Present illness Narrative This note was created using [employer]. Subjective Bj Day is a 83 year old male. 83 year old male with PMH HTN, hyperlipidemia, and intellectual disability presents for evaluation of arm pain. Acute onset of symptoms was 05/25/24 Right upper arm. ROS and HPI is limited related to patient history, intellectual disabilities He is accompanied by powerhouse mechanic, he resides at [facility] Caregiver states, it seems that he uses it when attention isn't brought to it Denies known trauma or injury Denies fall. Denies swelling or ecchymosis Right hand dominant. States patient was seen here for same 05/26/24 Caregiver states she accompanied him at that time, but no xray was performed as at the time the provider was able to touch and assess with no complaints of pain. The history is provided by the patient. No speech/language therapist was used. Arm Pain Pain location: right arm. This is a new problem. The current episode started in the past 7 days. There has been no history of extremity trauma. The problem occurs constantly. The problem has been waxing and waning. The quality of the pain is described as sharp and aching. The pain is at a severity of 6/10. The pain is moderate. Pertinent negatives include no fever, inability to bear weight, itching, joint locking, joint swelling, limited range of motion, numbness, stiffness or tingling. The symptoms are aggravated by activity. He has tried nothing for the symptoms. The treatment provided no relief. Family history does not include gout or rheumatoid arthritis. There is no history of diabetes, gout, osteoarthritis or rheumatoid arthritis. 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 MEDICATIONS memantine (NAMENDA) 10 mg tablet Take 1 tablet by mouth two times a day. melatonin 3 mg tablet Take 1 tablet at 7PM nightly. amLODIPine (NORVASC) 5 mg tablet Take 1 tablet by mouth once daily. For hypertension. pravastatin (PRAVACHOL) 10 mg tablet Take 1 tablet by mouth daily at bedtime. For high cholesterol. hydroCHLOROthiazide 12.5 mg capsule Take 1 capsule by mouth once daily. mineral oil/hydrophil petrolatum (AQUAPHOR) oint Apply 1 application to affected area twice daily. For dry skin/eczema of right hand. predniSONE (DELTASONE) 10 mg tablet Take 4 tabs daily for 3 days, then 2 tabs daily for 3 days, then 1 tab daily for 3 days with food. FAMILY HISTORY Problem Relation Age of Onset No Known Problems Sister Cancer Mother Heart Father Social History Tobacco Use Smoking status: Every Day Types: Pipe Smokeless tobacco: Never Tobacco comments: 5-6 pipes per day Vaping Use Vaping Use: Never used Substance Use Topics Alcohol use: No Drug use: No Review of Systems Unable to perform ROS: Other (intellecutal disability) Constitutional: Negative for fever. Musculoskeletal: Negative for gout and stiffness. Right arm pain Skin: Negative for itching. Neurological: Negative for tingling and numbness. Objective BP 124/70 Pulse 88 Temp 37.5 C (99.5 F) Resp 16 Wt 84.2 kg (185 lb 10 oz) SpO2 94% BMI 29.51 kg/m Physical Exam Vitals and nursing note reviewed. Constitutional: General: He is not in acute distress. Appearance: Normal appearance. He is not ill-appearing, toxic-appearing or diaphoretic. Comments: Playing with toy car and stuffed animal HENT: Head: Normocephalic and atraumatic. Right Ear: External ear normal. Left Ear: External ear normal. Nose: Nose normal. No congestion or rhinorrhea. Mouth/Throat: Mouth: Mucous membranes are moist. Pharynx: Oropharynx is clear. No oropharyngeal exudate or posterior oropharyngeal erythema. Eyes: General: Right eye: No discharge. Left eye: No discharge. Extraocular Movements: Extraocular movements intact. Conjunctiva/sclera: Conjunctivae normal. Pupils: Pupils are equal, round, and reactive to light. Cardiovascular: Rate and Rhythm: Normal rate and regular rhythm. Pulses: Normal pulses. Heart sounds: Normal heart sounds. No murmur heard. No friction rub. No gallop. Pulmonary: Effort: Pulmonary effort is normal. No respiratory distress. Breath sounds: Normal breath sounds. No stridor. No wheezing, rhonchi or rales. Chest: Chest wall: No tenderness. Abdominal: General: Abdomen is flat. There is no distension. Palpations: Abdomen is soft. There is no mass. Tenderness: There is no abdominal tenderness. There is no guarding or rebound. Hernia: No hernia is present. Musculoskeletal: General: Tenderness (diffuse TTP right humerus and also diffuse TTP anterior shoulder. Hesitant to perform ROM. +guarding. +neuro +sensation RP + 2 B/L. SKin intact) present. No swelling, deformity or signs of injury. Normal range of motion. Cervical back: Normal range of motion and neck supple. No rigidity or tenderness. Right lower leg: No edema. Left lower leg: No edema. Lymphadenopathy: Cervical: No cervical adenopathy. Skin: General: Skin is warm and dry. Capillary Refill: Capillary refill takes less than 2 seconds. Coloration: Skin is not jaundiced or pale. Findings: No bruising, lesion or rash. Neurological: General: No focal deficit present. Mental Status: He is alert. Comments: @ baseline per caregiver Psychiatric: Mood and Affect: Mood normal. Behavior: Behavior normal. Thought Content: Thought content normal. Assessment and Plan ASSESSMENT/PLAN: 1. Pain of right upper extremity - ICD9: 729.5, ICD10: M79.601 X 5 days No known trauma or injury Was seen by PCP, but documentation of exam reveals no abnormal findings and full ROM Today patient reluctant and not wanting to perform ROM - XR SHOULDER GENERAL 3V OR MORE AP/TRUE AP/OTHER RIGHT - XR HUMERUS 2V AP/LAT RIGHT Xrays negative for fracture or dislocation - CONSULT PANEL TO ORTHOPAEDICS - [facility] - CONSULT TO PHYSICAL THERAPY RX Prednisone Brianna Hayden APRN.ASSOCIATE MANAGER documented in this encounter [facility] 05-26-2024 History of Present illness Narrative CC: Patient presents with: c/o right shoulder pain x 1 day: Urinary frequency at night HPI Bj Day is a 83 year old male who presents today with his caregiver for above. Patient has intellectual disabilities but does answer some questions, most information provided by caregiver. Nocturia x 2-3 weeks: usually about 3-4 times a night however last Wednesday she only noted he got up one time. He does not drink a lot of liquids in the evenings, mostly decaf coffee. She has been trying to cut him off at 6 pm. Patient denies dysuria, low back or abdominal pain. Caregiver denies fever, patient complaints of pain, incontinence, frequency during the day, decreased urine output, hematuria, foul smelling urine. Right upper arm/bicep pain: started yesterday morning. Patient wasn't able to lift his arm above shoulder level without it causing pain however it did not seem to bother him when caregiver lifted it. No injury, swelling, redness. Right arm does not seem to be weak. Patient rubbing upper arm when asked where pain is located. Pain seemed to improve with Tylenol. Caregiver wondering if he just didn't feel like going to the work-shop yesterday. Review of Systems See HPI PAST MEDICAL HISTORY 02/12/2006: ECZEMA No date: Elevated prostate specific antigen (PSA) 01/04/2012: History of positive PPD No date: Hypertrophy of prostate without urinary obstruction and other lower urinary tract symptoms (LUTS) 05/24/2009: MALIGN NEOPL PROSTATE No date: Pectus excavatum No date: Pure hypercholesterolemia No date: Seborrheic dermatitis, unspecified 08/17/2011: Tubular adenoma of colon No date: Unspecified intellectual disabilities PAST SURGICAL HISTORY 08/17/2011: COLONOSCOPY FLX DX W/COLLJ SPEC WHEN PFRMD Comment: Colonoscopy 2008: RADIATION THERAPY Comment: prostate 2012: REMOVE CATARACT, INSERT LENS,EX Comment: lt and rt ALLERGIES Patient has no known allergies. MEDICATIONS memantine (NAMENDA) 10 mg tablet Take 1 tablet by mouth two times a day. melatonin 3 mg tablet Take 1 tablet at 7PM nightly. amLODIPine (NORVASC) 5 mg tablet Take 1 tablet by mouth once daily. For hypertension. pravastatin (PRAVACHOL) 10 mg tablet Take 1 tablet by mouth daily at bedtime. For high cholesterol. hydroCHLOROthiazide 12.5 mg capsule Take 1 capsule by mouth once daily. mineral oil/hydrophil petrolatum (AQUAPHOR) oint Apply 1 application to affected area twice daily. For dry skin/eczema of right hand. FAMILY HISTORY Problem Relation Age of Onset No Known Problems Sister Cancer Mother Heart Father Social History Tobacco Use Smoking status: Every Day Types: Pipe Smokeless tobacco: Never Tobacco comments: 5-6 pipes per day Vaping Use Vaping Use: Never used Substance Use Topics Alcohol use: No Drug use: No BP 152/78 Pulse 73 Resp 16 Wt 85.4 kg (188 lb 4.4 oz) SpO2 95% BMI 29.93 kg/m Physical Exam Vitals reviewed. Constitutional: Appearance: Normal appearance. He is not ill-appearing. Cardiovascular: Rate and Rhythm: Normal rate and regular rhythm. Pulmonary: Effort: Pulmonary effort is normal. Breath sounds: Normal breath sounds. Abdominal: General: There is no distension. Palpations: Abdomen is soft. Tenderness: There is no abdominal tenderness. There is no right CVA tenderness, left CVA tenderness, guarding or rebound. Hernia: No hernia is present. Musculoskeletal: Right shoulder: No swelling, deformity, bony tenderness or crepitus. Normal range of motion. Normal strength. Right upper arm: No swelling, deformity or tenderness. Right wrist: Normal pulse. Comments: Right shoulder-negative drop arm, [place] and [place]er Skin: General: Skin is warm and dry. Neurological: Mental Status: He is alert. Psychiatric: Mood and Affect: Mood normal. ASSESSMENT/PLAN: 1. Nocturia - ICD9: 788.43, ICD10: R35.1 (primary diagnosis) Differentials include UTI, behavioral, excess coffee in the evening - URINALYSIS WITH MICROSCOPIC, REFLEX CULTURE as patient unable to provide sample at this time - limit oral intake of liquids past 4-5 pm - further recommendations pending results 2. Pain in right upper arm - ICD9: 729.5, ICD10: M79.621 Musculoskeletal pain, suspect overuse and/or osteoarthritis OTC analgesics as needed Okay to resume normal activities, including work Follow-up as needed if pain persists or worsens Prescription instructions reviewed with patient as applicable. Potential red flag symptoms discussed with the patient. Reviewed appropriate action plan to take if red flag symptoms occur. Patient agreeable to treatment plan. Queta eDnis APRN.WATSON documented in this encounter [facility] 05-05-2024 History of Present illness Narrative ESTABLISHED PATIENT VISIT CHIEF COMPLAINT: Follow Up HISTORY OF PRESENT ILLNESS: Bj Day is a 83 year old male, with a PMH significant for and per last office visit of 02/04/24: 1. Cognitive decline - ICD9: 294.9, ICD10: R41.89 (primary diagnosis) 2. 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 Clinical history suggests significant short term memory impairment as well as possible sundowning with memory and behavioral changes worse at night. Unfortunately do not have a baseline evaluation of patient in records, but per caregiver who has known patient for 3 years, there has been a definite progressive decline. Discussed suspected diagnosis with patient and caregiver. Workup will be limited as patient would not be able to comply with MRI brain or formal neurocognitive testing. Again, metabolic workup over past year unremarkable, but would like to check Vit B12 (for deficiency) as possible cause of symptoms. Will also get CT brain to compare 2016 for evidence of progressive atrophy as well as any possible vascular events that may have occurred during the interim and may be contributing to symptoms. We discussed medications, including Seroquel for behavioral changes. However, would first like to trial patient on Namenda to see if helps with both cognition and behavior without being as sedating. Will start on 5mg daily and titrate up by 5mg weekly to goal of 10mg BID. SE and ADR were d/w pt and caregiver. They agree with plan. If agitation persists, then may add Seroquel 12.5mg with dinner. Patient will follow up in 8 weeks or sooner prn. 3. Insomnia, unspecified type - ICD9: 780.52, ICD10: G47.00 Continue melatonin but should be nightly to help regulate circadian pattern. Note that an irregular circadian pattern might further exacerbate behavioral changes. Melatonin 3mg at 7PM nightly. Now on Namenda 10mg BID. Presents with caregiver. They feel sleep and memory improved. Overall patient doing better but when comes to showers can get upset. No other behavioral issues. No sundowning type episodes since last visit. CT brain reviewed with patient and caregiver during visit - No acute brain findings. Progressive brain volume loss compared with the previous study from 2016. There is occlusive debris within the external auditory canals, likely cerumen. Correlate with direct inspection and clear, as this may impair hearing. No other new symptoms. No side effects from Namenda. Sleep is much better on melatonin - bedtime about 10PM and on bad night takes 1 hour to get ready and on good night 20 minutes and then falls asleep quickly. Wakes about 630AM as takes 90 minutes to get ready for work. REVIEW OF SYSTEMS GENERAL:No weight loss, malaise or fevers. HEENT:Negative for frequent or significant headaches, No changes in hearing or vision, no nose bleeds or other nasal problems RESPIRATORY: Negative for cough, wheezing or shortness of breath. CARDIOVASCULAR: Negative for chest pain, leg swelling or palpitations. GASTROINTESTINAL: Negative for abdominal discomfort, blood in stools or black stools or change in bowel habits GENITOURINARY: No history of dysuria, frequency or incontinence MUSCULOSKELETAL: Negative for joint pain or swelling, back pain or muscle pain. NEUROLOGIC:See HPI. LAB/IMAGING: Those performed since patient's last visit have been reviewed. WBC (k/uL) Date Value 03/03/2023 8.34 RBC (m/uL) Date Value 03/03/2023 4.38 Hemoglobin (g/dL) Date Value 03/03/2023 13.5 Hematocrit (%) Date Value 03/03/2023 40.7 MCV (fL) Date Value 03/03/2023 92.9 MCH (pg) Date Value 03/03/2023 30.8 MCHC (g/dL) Date Value 03/03/2023 33.2 RDW-CV (%) Date Value 03/03/2023 13.1 Platelet Count (k/uL) Date Value 03/03/2023 204 MPV (fL) Date Value 03/03/2023 11.1 Glucose (mg/dL) Date Value 03/03/2023 104 (H) BUN (mg/dL) Date Value 03/03/2023 15 Creatinine (mg/dL) Date Value 03/03/2023 0.87 Sodium (mmol/L) Date Value 03/03/2023 139 Potassium (mmol/L) Date Value 03/03/2023 3.5 (L) Chloride (mmol/L) Date Value 03/03/2023 103 CO2 (mmol/L) Date Value 03/03/2023 26 Protein, Total (g/dL) Date Value 03/03/2023 7.5 Albumin (g/dL) Date Value 03/03/2023 4.3 Calcium, Total (mg/dL) Date Value 03/03/2023 9.4 Alkaline Phosphatase (U/L) Date Value 03/03/2023 86 Bilirubin, Total (mg/dL) Date Value 03/03/2023 0.3 AST (U/L) Date Value 03/03/2023 24 ALT (U/L) Date Value 03/03/2023 22 URINALYSIS Specific [place], Ur Date Value Ref Range Status 01/20/2013 1.018 1.005 - 1.030 Final Glucose, Urine Date Value Ref Range Status 01/20/2013 Negative NEGAT mg/dL Final Bilirubin, Urine Date Value Ref Range Status 01/20/2013 Negative NEGAT Final Ketones, Urine Date Value Ref Range Status 01/20/2013 Negative NEGAT Final Hemoglobin/Blood,Ur Date Value Ref Range Status 01/20/2013 Negative NEGAT Final Protein, Urine Date Value Ref Range Status 01/20/2013 Trace (A) NEGAT mg/dL Final WBC, Urine Date Value Ref Range Status 01/20/2013 0-5 R05 /HPF Final MEDICATIONS: melatonin 3 mg tablet Take 1 tablet at 7PM nightly. memantine (NAMENDA) 10 mg tablet Take 1 tablet by mouth two times a day. (take after 5mg tablet titration complete) amLODIPine (NORVASC) 5 mg tablet Take 1 tablet by mouth once daily. For hypertension. pravastatin (PRAVACHOL) 10 mg tablet Take 1 tablet by mouth daily at bedtime. For high cholesterol. hydroCHLOROthiazide 12.5 mg capsule Take 1 capsule by mouth once daily. mineral oil/hydrophil petrolatum (AQUAPHOR) oint Apply 1 application to affected area twice daily. For dry skin/eczema of right hand. memantine (NAMENDA) 5 mg tablet Take 1 tablet in AM x1 week, then increase to 1 tablet in AM and PM x1 week, then increase to 2 tabs in AM and 1 tab in PM x1 week. Then transition to the 10mg tablets (separate Rx). 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 Hypertrophy of prostate without urinary obstruction and other lower urinary tract symptoms (LUTS) MALIGN NEOPL PROSTATE 05/24/2009 Pectus excavatum Pure hypercholesterolemia Seborrheic dermatitis, unspecified Tubular adenoma of colon 08/17/2011 Unspecified intellectual disabilities FAMILY HISTORY Problem Relation Age of Onset No Known Problems Sister Cancer Mother Heart Father SOCIAL HISTORY Social History Tobacco Use Smoking status: Every Day Types: Pipe Smokeless tobacco: Never Tobacco comments: 5-6 pipes per day Vaping Use Vaping Use: Never used Substance Use Topics Alcohol use: No Drug use: No PHYSICAL EXAMINATION BP 126/77 Pulse 62 Resp 16 SpO2 99% GENERAL EXAM: General appearance: NAD, pleasant. HEENT: NC/AT, nasal congestion absent, no oral lesions, membranes moist. NECK: ROM nml. Lungs: CTA bilaterally. CV: RRR nl S1, S2 Extr: No cyanosis, clubbing or edema. Skin: Cool to touch. NEUROLOGICAL EXAM: General: Awake, alert, fluent, dysarthria (at baseline); Follows simple commands. Naming appear to be intact. CN: PERRL, EOMI and without nystagmus, VFF to confrontation, facial sensation and strength are normal and symmetric, hearing is intact, palate and tongue movements are intact and symmetric. SCM and trapezius strength normal. Motor: Normal tone, bulk and strength (5/5) bilaterally (throughout extremities x4). Coordination: FNF, ORION, HTS intact. No tremors. Sensation: LT intact throughout. No evidence of neglect. Gait: Stable. Assessment and Plan: ASSESSMENT/PLAN: 1. Cognitive decline - ICD9: 294.9, ICD10: R41.89 (primary diagnosis) 2. Behavioral change - ICD9: 312.9, ICD10: R46.89 Overall doing well since last visit and as discussed above. Will make no changes to medications today and will continue Namenda 10mg BID. Again, CT brain 8 years later dose show progression of atrophy but may be simply due to aging. As recommended last visit, if behaviors were to worsen, would then start low dose Seroquel at dinner and bedtime (I.e. 12.5mg). 3. Insomnia, unspecified type - ICD9: 780.52, ICD10: G47.00 Circadian pattern now regulated with pt taking melatonin nightly (scheduled). No additional workup or treatment needed at this time. Refills for Namenda and melatonin provided. Request Dr. Dykes CC us on upcoming annual labs (renal and hepatic function). James Bronson MD Medical Decision Making: Problems: Moderate: 2+ stable chronic illnesses Data: Unique test result(s) reviewed: 2 Risk: Moderate: Drug management Medical Decision Making Level: 4 - Moderate documented in this encounter [facility] 02-09-2024 History of Present illness Narrative Radiology Service Progress Note PATIENT NAME: Bj Day DATE OF SERVICE: February 09, 2024 TIME: 3:38 PM PATIENT IDENTITY VERIFICATION COMPLETED USING TWO (2) IDENTIFIERS: Name and Date of confirmed by patient verbally. FALL SCREENING: Has the patient had 2 falls in the last year or 1 fall with injury or currently using an Ambulatory Assistive Device (Walker, Cane, Wheelchair, Crutches, etc.)? No PATIENT GENDER DATA: Male PATIENT RELEVANT IMPLANT DATA REVIEWED: Yes PATIENT PRESENTS WITH AN IMPLANTABLE OR ATTACHED CATHODIC PROTECTION TECHNICIAN: No RADIOLOGY DEPARTMENT: CT; Exam(s) Completed: Brain PERIPHERAL IV DATA: Not applicable SIGNED BY: RT Oriana(R) February 09, 2024 3:38 PM documented in this encounter [facility] 02-04-2024 History of Present illness Narrative NEW PATIENT (CONSULT) HISTORY AND PHYSICAL EXAM PRIMARY CARE PHYSICIAN: Javy Melendez MD REASON FOR CONSULT: See below REFERRING PHYSICIAN: Queta Denis, APR* CHIEF COMPLAINT: Memory changes and Agitation Consultation requested by Queta Denis, APR* for an opinion regarding chief complaint of Patient presents with: New Patient: New Pt presented with caregiver Lin, from [facility] Longterm, increased agitation x1.5 yrs, insomnia. and my final recommendations will be communicated back to the requesting physician by way of shared medical record or letter via [place] mail. HISTORY OF PRESENT ILLNESS: Bj Day is a 83 year old male, who per primary care note ofr 11/03/2023: Patient lives in a group and is here today with his caregiver. She reports recent onset of behavioral issues, short tempered and throwing objects at staff and other residents. He stays up very late most nights. When he does get a good amount of sleep he has no behavioral issues the next day and is back to baseline. Denies confusion or disorientation but it is difficult to evaluate because of intellectual disabilities. He does not complain of headaches. No noticeable issues with balance or coordination. No change in appetite or energy level... 2. Behavioral change - ICD9: 312.9, ICD10: R46.89 Differentials include dementia, psychiatric disorder - CONSULT TO NEUROLOGY for further evaluation and recommendations Caregiver provides history today. Patient more forgetful over the past 1.5 years - forgets that he has to go to work when he wakes in the AM, forgets that he ate his meal. No family history is available at this time. When he goes to bed, he will often get right up and think it is time to go to work, he will get dressed and come out, and they need to repeatedly cue him to get back to bed. Other times will forget he made his lunch and repeatedly come out to the kitchen to make lunch. He has had an irregular sleep schedule for the past 5 years when he will stay up and then go to bed at 5AM. Recently started on melatonin - pt now going to bed about 1030PM-MN and will sometimes fall asleep but then gets back up thinking it is time to go to work. When told he needs to go back to bed he gets upset and might throw things. Pt appears more confused at night. Agitation also more often at night time - when told to do something that he forgets he did not do, becomes argumentative and then begins to throw things. They feel melatonin calmed him down a bit but helped him more with sleep. Currently taking melatonin at about 7PM. Dinner about 5PM. At baseline about 3 years ago he could carry a conversation, but now cannot as a result of his not knowing his basic schedule - cannot talk about being at work because he forgot he was at work. TSH Date Value Ref Range Status 03/03/2023 1.980 0.270 - 4.200 mIU/L Final No bladder incontinence. REVIEW OF SYSTEMS GENERAL:No weight loss, malaise or fevers. HEENT:Negative for frequent or significant headaches, No changes in hearing or vision, no nose bleeds or other nasal problems NECK:Negative for lumps, goiter, pain and significant neck swelling RESPIRATORY: Negative for cough, wheezing or shortness of breath. CARDIOVASCULAR: Negative for chest pain, leg swelling or palpitations. GASTROINTESTINAL: Negative for abdominal discomfort, blood in stools or black stools or change in bowel habits GENITOURINARY: No history of dysuria, frequency or incontinence MUSCULOSKELETAL: Negative for joint pain or swelling, back pain or muscle pain. NEUROLOGIC:Negative for focal numbness or weakness, headaches and dizziness or syncope, vision changes, speech/language changes, changes in gait or falls -- besides those complaints as above in HPI. SKIN:Negative for lesions, rash, and itching. PSYCHIATRIC: Negative for sleep disturbance, mood disorder and recent psychosocial stressors. HEMATOLOGIC/LYMPHATIC/IMMUNOLOGIC: Negative for prolonged bleeding, bruising easily or swollen nodes. ENDOCRINE: Negative for cold or heat intolerance, polyuria, polydipsia and goiter. The remainder of the ROS was reviewed and is negative. LAB/IMAGING: Reviewed and include: WBC (k/uL) Date Value 03/03/2023 8.34 RBC (m/uL) Date Value 03/03/2023 4.38 Hemoglobin (g/dL) Date Value 03/03/2023 13.5 Hematocrit (%) Date Value 03/03/2023 40.7 MCV (fL) Date Value 03/03/2023 92.9 MCH (pg) Date Value 03/03/2023 30.8 MCHC (g/dL) Date Value 03/03/2023 33.2 RDW-CV (%) Date Value 03/03/2023 13.1 Platelet Count (k/uL) Date Value 03/03/2023 204 MPV (fL) Date Value 03/03/2023 11.1 Glucose (mg/dL) Date Value 03/03/2023 104 (H) BUN (mg/dL) Date Value 03/03/2023 15 Creatinine (mg/dL) Date Value 03/03/2023 0.87 Sodium (mmol/L) Date Value 03/03/2023 139 Potassium (mmol/L) Date Value 03/03/2023 3.5 (L) Chloride (mmol/L) Date Value 03/03/2023 103 CO2 (mmol/L) Date Value 03/03/2023 26 Protein, Total (g/dL) Date Value 03/03/2023 7.5 Albumin (g/dL) Date Value 03/03/2023 4.3 Calcium, Total (mg/dL) Date Value 03/03/2023 9.4 Alkaline Phosphatase (U/L) Date Value 03/03/2023 86 Bilirubin, Total (mg/dL) Date Value 03/03/2023 0.3 AST (U/L) Date Value 03/03/2023 24 ALT (U/L) Date Value 03/03/2023 22 URINALYSIS Specific [place], Ur Date Value Ref Range Status 01/20/2013 1.018 1.005 - 1.030 Final Glucose, Urine Date Value Ref Range Status 01/20/2013 Negative NEGAT mg/dL Final Bilirubin, Urine Date Value Ref Range Status 01/20/2013 Negative NEGAT Final Ketones, Urine Date Value Ref Range Status 01/20/2013 Negative NEGAT Final Hemoglobin/Blood,Ur Date Value Ref Range Status 01/20/2013 Negative NEGAT Final Protein, Urine Date Value Ref Range Status 01/20/2013 Trace (A) NEGAT mg/dL Final WBC, Urine Date Value Ref Range Status 01/20/2013 0-5 R05 /HPF Final MEDICATIONS: amLODIPine (NORVASC) 5 mg tablet Take 1 tablet by mouth once daily. For hypertension. pravastatin (PRAVACHOL) 10 mg tablet Take 1 tablet by mouth daily at bedtime. For high cholesterol. hydroCHLOROthiazide 12.5 mg capsule Take 1 capsule by mouth once daily. melatonin 5 mg tablet Take 1 tablet by mouth at bedtime as needed for insomnia. mineral oil/hydrophil petrolatum (AQUAPHOR) oint Apply 1 application to affected area twice daily. For dry skin/eczema of right hand. 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 Hypertrophy of prostate without urinary obstruction and other lower urinary tract symptoms (LUTS) MALIGN NEOPL PROSTATE 05/24/2009 Pectus excavatum Pure hypercholesterolemia Seborrheic dermatitis, unspecified Tubular adenoma of colon 08/17/2011 Unspecified intellectual disabilities FAMILY HISTORY Problem Relation Age of Onset No Known Problems Sister Cancer Mother Heart Father SOCIAL HISTORY Social History Tobacco Use Smoking status: Every Day Types: Pipe Smokeless tobacco: Never Tobacco comments: 5-6 pipes per day Vaping Use Vaping Use: Never used Substance Use Topics Alcohol use: No Drug use: No PHYSICAL EXAMINATION There were no vitals taken for this visit. GENERAL EXAM: General appearance: NAD, pleasant. HEENT: NC/AT, nasal congestion absent, no oral lesions, membranes moist. NECK: No masses, supple. Lungs: CTA bilaterally. CV: RRR nl S1, S2. Extr: No cyanosis, clubbing or edema. Skin: Cool to touch. NEUROLOGICAL EXAM: General: Awake, alert, oriented x3 (person,place,time), fluent, mild dysarthria but appears to be baseline; follows commands. Naming intact. He is unable to focus long enough for meaningful cognitive testing in office. CN: PERRL, fundi with no evidence of papilledema, EOMI and without nystagmus, VFF to confrontation, facial sensation and strength are normal and symmetric, hearing is intact to finger rub bilaterally, palate and tongue movements are intact and symmetric. SCM and trapezius strength normal. Motor: Normal bulk and strength (5/5) bilaterally (throughout extremities x4). Reflexes: 2/4 and symmetric, plantar stimulation is flexor. Coordination: FNF, ORION, HTS intact. No tremors. Sensation: LT, vibration, temperature intact throughout. No evidence of neglect. Gait: Mild wide based but stable with normal stride and arm swing. Romberg normal. Assessment and Plan: ASSESSMENT/PLAN: 1. Cognitive decline - ICD9: 294.9, ICD10: R41.89 (primary diagnosis) 2. 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 Clinical history suggests significant short term memory impairment as well as possible sundowning with memory and behavioral changes worse at night. Unfortunately do not have a baseline evaluation of patient in records, but per caregiver who has known patient for 3 years, there has been a definite progressive decline. Discussed suspected diagnosis with patient and caregiver. Workup will be limited as patient would not be able to comply with MRI brain or formal neurocognitive testing. Again, metabolic workup over past year unremarkable, but would like to check Vit B12 (for deficiency) as possible cause of symptoms. Will also get CT brain to compare 2016 for evidence of progressive atrophy as well as any possible vascular events that may have occurred during the interim and may be contributing to symptoms. We discussed medications, including Seroquel for behavioral changes. However, would first like to trial patient on Namenda to see if helps with both cognition and behavior without being as sedating. Will start on 5mg daily and titrate up by 5mg weekly to goal of 10mg BID. SE and ADR were d/w pt and caregiver. They agree with plan. If agitation persists, then may add Seroquel 12.5mg with dinner. Patient will follow up in 8 weeks or sooner prn. 3. Insomnia, unspecified type - ICD9: 780.52, ICD10: G47.00 Continue melatonin but should be nightly to help regulate circadian pattern. Note that an irregular circadian pattern might further exacerbate behavioral changes. Melatonin 3mg at 7PM nightly. James Bronson MD Medical Decision Making: Problems: Moderate: New problem with uncertain prognosis Data: Unique test result(s) reviewed: 2 Unique test(s) ordered: 2 Risk: Moderate: Drug management Medical Decision Making Level: 4 - Moderate documented in this encounter [facility] 03-03-2023 History of Present illness Narrative CC: Patient presents with: Rx Refills HPI Bj Day is a 82 year old male who presents today for above. Patient is here today with caregivers. They report patient seems to be sleeping more than usual on the weekends for the past few months. There has been no change in his schedule, works Wed-Wednesday. Does tend to stay up late on the weekends but this is not new. Otherwise he is doing really well overall. Deny any behavioral issues. Patient denies pain any where. He is taking all medications as prescribed, denies side effects. 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 MEDICATIONS amLODIPine (NORVASC) 5 mg tablet Take 1 tablet by mouth once daily. For hypertension. pravastatin (PRAVACHOL) 10 mg tablet Take 1 tablet by mouth daily at bedtime. For high cholesterol. hydroCHLOROthiazide (HYDRODIURIL, ESIDRIX) 12.5 mg capsule Take 1 capsule by mouth once daily. mineral oil/hydrophil petrolatum (AQUAPHOR) oint Apply 1 application to affected area twice daily. For dry skin/eczema of right hand. FAMILY HISTORY Problem Relation Age of Onset No Known Problems Sister Cancer Mother Heart Father Social History Tobacco Use Smoking status: Every Day Types: Pipe Smokeless tobacco: Never Tobacco comments: 5-6 pipes per day Vaping Use Vaping Use: Never used Substance Use Topics Alcohol use: No Drug use: No PHYSICAL EXAM BP 116/58 Pulse 85 Resp 16 Wt 82.6 kg (182 lb) BMI 30.29 kg/m General Appearance: well appearing, in no acute distress, alert Lungs: Lungs clear to auscultation. No wheezing, rhonchi, rales. Heart: RRR without murmur, gallop, or rubs. No ectopy Health maintenance reviewed with patient: COVID-19 VACCINE(5 - Booster for Pfizer series) due on 08/19/2022 ADVANCE DIRECTIVE DISCUSSION due on 10/25/2022 DEPRESSION ASSESSMENT Never done DTAP,TDAP,TD(1 - Tdap) due on 06/24/2023 SHINGRIX VACCINE(1 of 2) due on 06/24/2023 INFLUENZA(Season Ended) due on 06/25/2023 DIABETES SCREEN due on 06/24/2025 PNEUMOCOCCAL: 65+ Completed DATA REVIEWED: Most recent labs ASSESSMENT/PLAN: 1. Primary hypertension - ICD9: 401.9, ICD10: I10 (primary diagnosis) - good control - Continue current medication(s) - Recommended regular aerobic exercise. - Recommend home blood pressure monitoring, to bring results in on next visit - Goal of BP <130/80 - COMP METABOLIC PANEL - CBC 2. Fatigue, unspecified type - ICD9: 780.79, ICD10: R53.83 Check labs - TSH BLD 3. Edema, unspecified type - ICD9: 782.3, ICD10: R60.9 Resolved - HYDROCHLOROTHIAZIDE 12.5 MG CAPSULE 4. Hyperlipidemia, unspecified hyperlipidemia type - ICD9: 272.4, ICD10: E78.5 - to be determined upon return of lab results - Continue current medication. - PRAVASTATIN 10 MG TABLET - COMP METABOLIC PANEL - LIPID PANEL BASIC 5. Obesity, Class I, BMI 30-34.9 - ICD9: 278.00, ICD10: E66.9 Weight increasing - HGB A1C 6. Encounter for immunization - ICD9: V03.89, ICD10: Z23 - PFIZER-BIONTECH COVID-19 BIVALENT VACCINE, AGE 12+ YR 7. Impaired glucose metabolism - ICD9: 790.29, ICD10: R73.09 - HGB A1C Prescription instructions reviewed with patient as applicable. Potential red flag symptoms discussed with the patient. Reviewed appropriate action plan to take if red flag symptoms occur. Patient agreeable to treatment plan. Queta Jha APRN.CNP documented in this encounter [facility] 06-26-2022 Miscellaneous Notes Patient's general intern notified. Verbalized understanding. Zafar Canada Ma ----- Message from Queta Jha APRN.CNP sent at 06/26/2022 7:55 AM EDT ----- Please let patient's caregiver know his lab results were all within acceptable limits Queta Jha APRN.CNP documented in this encounter [facility] 06-24-2022 History of Present illness Narrative CC: Patient presents with: Medicare Wellness Exam HPI Bj Day is a 81 year old male who presents today for one year follow-up. BP is well controlled. Taking all medications as prescribed. No side effects. Caregiver denies any behavioral issues. Patient reports he is feeling well. Both deny any issues. 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 MEDICATIONS amLODIPine (NORVASC) 5 mg tablet Take 1 tablet by mouth once daily. For hypertension. pravastatin (PRAVACHOL) 10 mg tablet Take 1 tablet by mouth daily at bedtime. For high cholesterol. hydroCHLOROthiazide (HYDRODIURIL, ESIDRIX) 12.5 mg capsule Take 1 capsule by mouth once daily. mineral oil/hydrophil petrolatum (AQUAPHOR) oint Apply 1 application to affected area twice daily. For dry skin/eczema of right hand. FAMILY HISTORY Problem Relation Age of Onset No Known Problems Sister Cancer Mother Heart Father Social History Tobacco Use Smoking status: Every Day Types: Pipe Smokeless tobacco: Never Tobacco comments: 5-6 pipes per day Vaping Use Vaping Use: Never used Substance Use Topics Alcohol use: No Drug use: No PHYSICAL EXAM BP 116/58 Pulse 78 Resp 16 Ht 165.1 cm (5' 5) Wt 79.8 kg (176 lb) BMI 29.29 kg/m General Appearance: well appearing, in no acute distress, alert Lungs: Lungs clear to auscultation. No wheezing, rhonchi, rales. Heart: RRR without murmur, gallop, or rubs. No ectopy Health maintenance reviewed with patient: COVID-19 VACCINE(4 - Booster for Pfizer series) due on 01/30/2022 DTAP,TDAP,TD(1 - Tdap) due on 06/24/2023 SHINGRIX VACCINE(1 of 2) due on 06/24/2023 INFLUENZA(1) due on 06/25/2022 DIABETES SCREEN due on 09/12/2023 ADVANCE DIRECTIVE DISCUSSION Completed PNEUMOCOCCAL: 65+ Completed DATA REVIEWED: Most recent labs ASSESSMENT/PLAN: 1. Medicare annual wellness visit, subsequent - ICD9: V70.0, ICD10: Z00.00 (primary diagnosis) See Medicare wellness note below 2. Essential hypertension - ICD9: 401.9, ICD10: I10 - good control - Continue current medication(s) - Recommended regular aerobic exercise. - Recommend home blood pressure monitoring, to bring results in on next visit - Goal of BP <130/80 - AMLODIPINE 5 MG TABLET - COMP METABOLIC PANEL - CBC + DIFF 3. Hyperlipidemia, unspecified hyperlipidemia type - ICD9: 272.4, ICD10: E78.5 - to be determined upon return of lab results - Continue current medication. - PRAVASTATIN 10 MG TABLET - LIPID PANEL, NONFASTING 4. Encounter for immunization - ICD9: V03.89, ICD10: Z23 - PFIZER-BIONTECH COVID-19 VACCINE, AGE 12+ YR (ADAM TOP) Prescription instructions reviewed with patient as applicable. Potential red flag symptoms discussed with the patient. Reviewed appropriate action plan to take if red flag symptoms occur. Patient agreeable to treatment plan. 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 Medications reviewed: Yes FAMILY HISTORY Problem Relation Age of Onset No Known Problems Sister Cancer Mother Heart Father SOCIAL HISTORY: Social History Tobacco Use Smoking status: Every Day Types: Pipe Smokeless tobacco: Never Tobacco comments: 5-6 pipes per day Substance Use Topics Alcohol use: No Drug use: No Bj denies regular aerobic exercise. He watches his diet for sodium, low fat and low cholesterol most of the time. List of current specialists seen: Urologist- Dr. Mora Engraver Block- unsure End of Live Planning discussed including patients advanced directive wishes: Yes I am willing to follow Bj's advanced directives. Evidence of Cognitive Impairment: patient has moderate intellectual disabilities, unable to perform cognitive testing PHQ-2 / Depression screen He in the past two weeks denies having felt down, depressed, hopeless, or with little interest or pleasure in doing things. Functional Ability/Safety Screen 1. Was the patient's timed Up and Go test unsteady or longer than 30 seconds? No 2. Does the patient need help with the phone, transportation, shopping,preparing meals, housework, laundry, medications or managing money? Yes lives in prison 3. Does your home have rugs in the hallway, lack of grab bars in the bathroom, lack of handrails on the stairs or have poor lighting? No Hearing Evaluation: normal PHYSICAL EXAM BP 116/58 Pulse 78 Resp 16 Ht 165.1 cm (5' 5) Wt 79.8 kg (176 lb) BMI 29.29 kg/m Alert and oriented X 3: NO Body mass index is 29.29 kg/m . ASSESSMENT/PLAN: 1. Medicare annual wellness visit, subsequent - ICD9: V70.0, ICD10: Z00.00 (primary diagnosis) The following prevention plan was discussed during the office visit and provided to the patient: - Counseled on healthy diet and regular exercise - Depression screening tool completed and reviewed with patient. Based on score and interview, patient is not at risk for depression and recommended no further intervention at this time. - Patient and caregiver were counseled [id number] by myself (the billing provider) for the following immunizations and vaccine components, including side effects: COVID-19. Patient consents for immunization and understands risks and benefits. A VIS sheet on each immunization was given to the patient. - Follow up for annual exam in one year Queta Jha APRN.CNP documented in this encounter [facility] 06-24-2022 Instructions Queta Jha APRN.CNP - 06/24/2022 9:14 AM EDT Screening schedule The following prevention plan is recommended: SHINGRIX VACCINE(1 of 2) Never done Recombinant shingles vaccine (Shingrix) is recommended; 2 doses 2-6 months apart. Please read information, check with your insurance, and schedule vaccination at your local pharmacy. A prescription is not required. If you are certain you have coverage to receive this vaccine in the office, we can schedule this for you. WHAT YOU CAN DO TO PREVENT FALLS Many falls can be prevented. By making some changes, you can lower your chances of falling. Four things YOU can do to prevent falls for you* and your caregiver 1. Begin a regular exercise program Exercise is one of the most important ways to lower your chances of falling. It makes you stronger and helps you feel better. Exercises that improve balance and coordination (like Augustus Chi) are the most helpful. Lack of exercise leads to weakness and increases your chances of falling. Ask your doctor or health care provider about the best type of exercise program for you. 2. Have your health care provider review your medicines Have your doctor or pharmacist review all the medicines you take, even [id number] medicines. As you get older, the way medicines work in your body can change. Some medicines, or combinations of medicines, can make you sleepy or dizzy and can cause you to fall. 3. Have your vision checked Have your eyes checked by an eye doctor at least once a year. You may be wearing the wrong glasses or have a condition like glaucoma or cataracts that limits your vision. Poor vision can increase your chances of falling. 4. Make your home safer About half of all falls happen at home. To make your home safer: Remove things you can trip over (like papers, books, clothes, and shoes) from stairs and places where you walk. Remove small throw rugs or use double-sided tape to keep the rugs from slipping. Keep items you use often in cabinets you can reach easily without using a step stool. Have grab bars put in next to your toilet and in the tub or shower. Use non-slip mats in the bathtub and on shower floors. Improve the lighting in your home. As you get older, you need brighter lights to see well. Hang light-weight curtains or shades to reduce glare. Have handrails and lights put in on all staircases. Wear shoes both inside and outside the house. Avoid going barefoot or wearing slippers. For more information, contact: Centers for Disease Control and Prevention www.cdc.gov/injury * This information may not apply if you have certain medical conditions. documented in this encounter [facility] 03-04-2022 Miscellaneous Notes Patient scheduled Please call pt to arrange yearly physical with pcp due after 04/24/22. Pharmacy verified in [facility] Patient has been identified by name and date of : Yes Patient aware RX will be sent to pharmacy. No need to notify patient. Pharmacy phones for refill(s): Pending Prescriptions Disp Refills HYDROCHLOROTHIAZIDE 12.5 MG CAPSULE 90 capsule 3 Sig: Take 1 capsule by mouth once daily. SHANNAN: No Date of last office visit : 04/24/2021 Date of next office visit : Visit date not found Last 2 Encounter Wt Readings: Date: Wt: 04/24/2021 77.6 kg (171 lb) 09/05/2020 78 kg (172 lb) Please advise. Betsy Abdullahi Pss documented in this encounter [facility] 01-04-2012 History of Past i llness Narrative Problem Noted Date Resolved Date History of positive PPD 01/04/2012 02/19/20 18 Tubular adenoma of colon 08/17/2011 017 Other and unspecified hyperlipidemia 02/12/2006 02/18/2018 Last Assessment & Plan: Last lipid review in 2010 with elevated lipids... Was to work on diet and lifestyle. Has since has mild wt-loss. Will recheck levels. Contact dermatitis and eczema 02/12/2006 Pectus excavatum 01/02/2011 Elevated prostate specific antigen (PSA) 01/02/2011 documented as of this encounter (statuses as of 03/12/2022) [facility] History of Past illness Narrative* Problem Noted Date Resolved Date History of positive PPD 01/04/2012 02/19/20 18 Tubular adenoma of colon 08/17/2011 017 Other and unspecified hyperlipidemia 02/12/2006 02/18/2018 Last Assessment & Plan: Last lipid review in 2010 with elevated lipids... Was to work on diet and lifestyle. Has since has mild wt-loss. Will recheck levels. Contact dermatitis and eczema 02/12/2006 Pectus excavatum 01/02/2011 Elevated prostate specific antigen (PSA) 01/02/2011 documented as of this encounter (statuses as of 06/24/2022) [facility] History of Past illness Narrative* Problem Noted Date Resolved Date History of positive PPD 01/04/2012 02/19/20 18 Tubular adenoma of colon 08/17/2011 017 Other and unspecified hyperlipidemia 02/12/2006 02/18/2018 Last Assessment & Plan: Last lipid review in 2010 with elevated lipids... Was to work on diet and lifestyle. Has since has mild wt-loss. Will recheck levels. Contact dermatitis and eczema 02/12/2006 Pectus excavatum 01/02/2011 Elevated prostate specific antigen (PSA) 01/02/2011 documented as of this encounter (statuses as of 06/26/2022) [facility] History of Past illness Narrative* Problem Noted Date Resolved Date History of positive PPD 01/04/2012 02/19/20 18 Tubular adenoma of colon 08/17/2011 017 Other and unspecified hyperlipidemia 02/12/2006 02/18/2018 Last Assessment & Plan: Last lipid review in 2010 with elevated lipids... Was to work on diet and lifestyle. Has since has mild wt-loss. Will recheck levels. Contact dermatitis and eczema 02/12/2006 Pectus excavatum 01/02/2011 Elevated prostate specific antigen (PSA) 01/02/2011 documented as of this encounter (statuses as of 03/03/2023) [facility] History of Past illness Narrative* Problem Noted Date Diagnosed Date Resolved Date History of positive PPD 01/04/201201/24 Tubular adenoma of colon 08/17/2011 Malignant neoplasm of prostate 05/24/2009 11/03/2023 Overview: Dr. Dagile, Dr. Jasmine. Other and unspecified hyperlipidemia 02/12/2006 02/18/2018 Last Assessment & Plan: Last lipid review in 2010 with elevated lipids... Was to work on diet and lifestyle. Has since has mild wt-loss. Will recheck levels. Contact dermatitis and eczema 02/12/2006 02/20/2016 Pectus excavatum 01/02/2011 Elevated prostate specific antigen (PSA) 01/02/2011 documented as of this encounter (statuses as of 02/04/2024) [facility] History of Past illness Narrative* Problem Noted Date Diagnosed Date Resolved Date History of positive PPD 01/04/201201/24 Tubular adenoma of colon 08/17/2011 Malignant neoplasm of prostate 05/24/2009 11/03/2023 Overview: Dr. Daigle, Dr. Jasmine. Other and unspecified hyperlipidemia 02/12/2006 02/18/2018 Last Assessment & Plan: Last lipid review in 2010 with elevated lipids... Was to work on diet and lifestyle. Has since has mild wt-loss. Will recheck levels. Contact dermatitis and eczema 02/12/2006 02/20/2016 Pectus excavatum 01/02/2011 Elevated prostate specific antigen (PSA) 01/02/2011 documented as of this encounter (statuses as of 02/10/2024) [facility] note* Diagnosis Essential hypertension Unspecified essential hypertension Edema, unspecified type documented in this encounter [facility] note* Diagnosis Medicare annual wellness visit, subsequent- Primary Routine general medical examination at a health care facility Essential hypertension Unspecified essential hypertension Hyperlipidemia, unspecified hyperlipidemia type Encounter for immunization Need for other specified prophylactic vaccination against single bacterial disease documented in this encounter [facility] note* Diagnosis Primary hypertension- Primary Unspecified essential hypertension Fatigue, unspecified type Edema, unspecified type Hyperlipidemia, unspecified hyperlipidemia type Obesity, Class I, BMI 30-34.9 Obesity, unspecified Encounter for immunization Need for other specified prophylactic vaccination against single bacterial disease Impaired glucose metabolism Impaired glucose tolerance test documented in this encounter [facility] note* Diagnosis Cognitive decline- Primary Unspecified persistent mental disorders due to conditions classified elsewhere Behavioral change Unspecified disturbance of conduct Insomnia, unspecified type [facility] Diagnosis Behavioral change Unspecified disturbance of conduct Cognitive decline Unspecified persistent mental disorders due to conditions classified elsewhere documented in this encounter [facility] note* Diagnosis Cognitive decline- Primary Unspecified persistent mental disorders due to conditions classified elsewhere Behavioral change Unspecified disturbance of conduct Insomnia, unspecified type documented in this encounter [facility] note* Diagnosis Nocturia- Primary Pain in right upper arm documented in this encounter [facility] note* Diagnosis Pain of right upper extremity- Primary [facility] of right upper extremity [facility] Diagnosis MENTAL RETARDATION NOS Unspecified intellectual disabilities HYPERLIPIDEMIA NEC/NOS Other and unspecified hyperlipidemia Tobacco use disorder History of positive PPD Nonspecific reaction to tuberculin skin test without active tuberculosis Medicare annual wellness visit, subsequent- Primary Routine general medical examination at a [facility] MENTAL RETARDATION NOS Unspecified intellectual disabilities History of positive PPD Nonspecific reaction to tuberculin skin test without active tuberculosis Malignant neoplasm of prostate (HCC) Malignant neoplasm of prostate Skin lesion of chest wall Unspecified disorder of skin and subcutaneous tissue Pain of right upper extremity [facility] Diagnosis MENTAL RETARDATION NOS Unspecified intellectual disabilities HYPERLIPIDEMIA NEC/NOS Other and unspecified hyperlipidemia Tobacco use disorder History of positive PPD Nonspecific reaction to tuberculin skin test without active tuberculosis Medicare annual wellness visit, subsequent- Primary Routine general medical examination at a [facility] MENTAL RETARDATION NOS Unspecified intellectual disabilities History of positive PPD Nonspecific reaction to tuberculin skin test without active tuberculosis Malignant neoplasm of prostate (HCC) Malignant neoplasm of prostate Skin lesion of chest wall Unspecified disorder of skin and subcutaneous tissue Pain of right upper extremity [facility] Diagnosis MENTAL RETARDATION NOS Unspecified intellectual disabilities HYPERLIPIDEMIA NEC/NOS Other and unspecified hyperlipidemia Tobacco use disorder History of positive PPD Nonspecific reaction to tuberculin skin test without active tuberculosis Medicare annual wellness visit, subsequent- Primary Routine general medical examination at a [facility] MENTAL RETARDATION NOS Unspecified intellectual disabilities History of positive PPD Nonspecific reaction to tuberculin skin test without active tuberculosis Malignant neoplasm of prostate (HCC) Malignant neoplasm of prostate Skin lesion of chest wall Unspecified disorder of skin and subcutaneous tissue Medicare annual wellness visit, subsequent- Primary Routine general medical examination at a health care facility Primary hypertension Unspecified essential hypertension Hyperlipidemia, unspecified hyperlipidemia type Unspecified intellectual disabilities Cognitive decline Unspecified persistent mental disorders due to conditions classified elsewhere Screening for depression Encounter for screening examination for other mental health and behavioral disorders [facility] MENTAL RETARDATION NOS Unspecified intellectual disabilities HYPERLIPIDEMIA NEC/NOS Other and unspecified hyperlipidemia Tobacco use disorder History of positive PPD Nonspecific reaction to tuberculin skin test without active tuberculosis Medicare annual wellness visit, subsequent- Primary Routine general medical examination at a health care facility MENTAL RETARDATION NOS Unspecified intellectual disabilities History of positive PPD Nonspecific reaction to tuberculin skin test without active tuberculosis Malignant neoplasm of prostate (HCC) Malignant neoplasm of prostate Skin lesion of chest wall Unspecified disorder of skin and subcutaneous tissue Onychomycosis- Primary Dermatophytosis of nail Pain in toe of left foot Pain in limb Pain in toe of right foot Pain in limb Callus of foot Corns and callosities [facility] Diagnosis MENTAL RETARDATION NOS Unspecified intellectual disabilities HYPERLIPIDEMIA NEC/NOS Other and unspecified hyperlipidemia Tobacco use disorder History of positive PPD Nonspecific reaction to tuberculin skin test without active tuberculosis Medicare annual wellness visit, subsequent- Primary Routine general medical examination at a health care facility MENTAL RETARDATION NOS Unspecified intellectual disabilities History of positive PPD Nonspecific reaction to tuberculin skin test without active tuberculosis Malignant neoplasm of prostate (HCC) Malignant neoplasm of prostate Skin lesion of chest wall Unspecified disorder of skin and subcutaneous tissue Unsteady gait- Primary Abnormality of gait Sleepiness Other alteration of consciousness Gait abnormality Abnormality of gait Impaired glucose metabolism Impaired glucose tolerance test Impacted cerumen, bilateral Conductive hearing loss, bilateral [facility] Diagnosis MENTAL RETARDATION NOS Unspecified intellectual disabilities HYPERLIPIDEMIA NEC/NOS Other and unspecified hyperlipidemia Tobacco use disorder History of positive PPD Nonspecific reaction to tuberculin skin test without active tuberculosis Medicare annual wellness visit, subsequent- Primary Routine general medical examination at a health care facility MENTAL RETARDATION NOS Unspecified intellectual disabilities History of positive PPD Nonspecific reaction to tuberculin skin test without active tuberculosis Malignant neoplasm of prostate (HCC) Malignant neoplasm of prostate Skin lesion of chest wall Unspecified disorder of skin and subcutaneous tissue Bilateral impacted cerumen- Primary Impacted cerumen [facility] Diagnosis MENTAL RETARDATION NOS Unspecified intellectual disabilities HYPERLIPIDEMIA NEC/NOS Other and unspecified hyperlipidemia Tobacco use disorder History of positive PPD Nonspecific reaction to tuberculin skin test without active tuberculosis Medicare annual wellness visit, subsequent- Primary Routine general medical examination at a health care facility MENTAL RETARDATION NOS Unspecified intellectual disabilities History of positive PPD Nonspecific reaction to tuberculin skin test without active tuberculosis Malignant neoplasm of prostate (HCC) Malignant neoplasm of prostate Skin lesion of chest wall Unspecified disorder of skin and subcutaneous tissue Primary hypertension- Primary Unspecified essential hypertension Hyperlipidemia, unspecified hyperlipidemia type Unspecified intellectual disabilities Cognitive decline Unspecified persistent mental disorders due to conditions classified elsewhere Impaired glucose metabolism Impaired glucose tolerance test [facility] Diagnosis MENTAL RETARDATION NOS Unspecified intellectual disabilities HYPERLIPIDEMIA NEC/NOS Other and unspecified hyperlipidemia Tobacco use disorder History of positive PPD Nonspecific reaction to tuberculin skin test without active tuberculosis Medicare annual wellness visit, subsequent- Primary Routine general medical examination at a health care facility MENTAL RETARDATION NOS Unspecified intellectual disabilities History of positive PPD Nonspecific reaction to tuberculin skin test without active tuberculosis Malignant neoplasm of prostate (HCC) Malignant neoplasm of prostate Skin lesion of chest wall Unspecified disorder of skin and subcutaneous tissue Venous insufficiency of both lower extremities- Primary Primary hypertension Unspecified essential hypertension Edema of both legs Edema [facility] Diagnosis MENTAL RETARDATION NOS Unspecified intellectual disabilities HYPERLIPIDEMIA NEC/NOS Other and unspecified hyperlipidemia Tobacco use disorder History of positive PPD Nonspecific reaction to tuberculin skin test without active tuberculosis Medicare annual wellness visit, subsequent- Primary Routine general medical examination at a health care facility MENTAL RETARDATION NOS Unspecified intellectual disabilities History of positive PPD Nonspecific reaction to tuberculin skin test without active tuberculosis Malignant neoplasm of prostate (HCC) Malignant neoplasm of prostate Skin lesion of chest wall Unspecified disorder of skin and subcutaneous tissue Onychomycosis- Primary Dermatophytosis of nail Pain in toe of left foot Pain in limb Pain in toe of right foot Pain in limb Callus of foot Corns and callosities Hammer toe of right foot Hammer toe of left foot documented [facility]ative[facility] Diagnostic Procedure Only (Urgent) - Closed Specialty Diagnoses / Procedures Referred By Contac t Referred To Contact XR IMAGING Diagnoses Pain of right upper extremity Procedures XR HUMERUS 2V AP/LAT RIGHT RADEX HUMERUS MINIMUM 2 VIEWS Brianna Hayden APRN.ASSOCIATE MANAGER [address] [place] [address] [place] [address] Referral ID Status Reason Start Date Expiration Date V isits Requested Visits Authorized [id number] Closed Auto-Generate d Referral 05/29/2024 06/28/2025 1 1 * Diagnostic Procedure Only (Urgent) - Closed Specialty Diagnoses / Procedures Referred By Contac t Referred To Contact XR IMAGING Diagnoses Pain of right upper extremity Procedures XR SHOULDER GENERAL 3V OR MORE AP/TRUE AP/OTHER RIGHT RADEX SHOULDER COMPLETE MINIMUM 2 VIEWS Brianna Hayden, ISABELA.ASSOCIATE MANAGER [address] [place] [address] [place] [address] Referral ID Status Reason Start Date Expiration Date V isits Requested Visits Authorized [id number] Closed Auto-Generate d Referral 05/29/2024 06/28/2025 1 1 [facility]* Diagnostic Procedure Only (Urgent) - Closed Specialty Diagnoses / Procedures Referred By Contac t Referred To Contact XR IMAGING Diagnoses Pain of right upper extremity Procedures XR HUMERUS 2V AP/LAT RIGHT RADEX HUMERUS MINIMUM 2 VIEWS Brianna Hayden APRN.ASSOCIATE MANAGER [address] [place] [address] [place] [address] Referral ID Status Reason Start Date Expiration Date V isits Requested Visits Authorized [id number] Closed Auto-Generate d Referral 05/29/2024 06/28/2025 1 1 [facility] Reason for Referral Specialty Diagnoses / Procedures Referred By Contac t Referred To Contact CT IMAGING Diagnoses Behavioral change Cognitive decline Procedures CT BRAIN WO IVCON CT HEAD/BRAIN W/O CONTRAST MATERIAL James Bronson Jr., MD [address] [facility] [address] [place] [address] Ct Imaging [facility] Referral ID Status Reason Start Date Expiration Date Visits Requested Visits Authorized [id number] Authorized Auto-Generat ed Referral 02/04/2024 03/05/2025 1 1 Referral ID Status Reason Start Date Expiration Date V isits Requested Visits Authorized [id number] Closed Auto-Generate d Referral 02/04/2024 03/05/2025 1 1 Specialty Diagnoses / Procedures Referred By Contac t Referred To Contact [facility] Diagnoses Pain of right upper extremity Procedures [facility] - CONSULT TO PHYSICAL THERAPY OFFICE/OUTPATIENT [facility] 60 MINUTES Brianna Hayden APRN.ASSOCIATE MANAGER [address] [place] [address] [facility] [place] [address] [place] [address] Referral ID Status Reason Start Date Expiration Date Visits Requested Visits Authorized [id number] Pending Review Auto-Generat ed Referral 05/29/2024 05/29/2025 99 99 Specialty Diagnoses / Procedures Referred By Contac t Referred To Contact Orthopedics Diagnoses Pain of right upper extremity Procedures CONSULT PANEL TO ORTHOPAEDICS OFFICE/OUTPATIENT [facility] MDM 60 MINUTES Brianna Hayden APRN.ASSOCIATE MANAGER [address] [place] [address] Referral ID Status Reason Start Date Expiration Date Visits Requested Visits Authorized [id number] Authorized PCP Requested Referral 05/29/2024 05/29/2025 1 1 Specialty Diagnoses / Procedures Referred By Contac t Referred To Contact XR IMAGING Diagnoses Pain of right upper extremity Procedures XR HUMERUS 2V AP/LAT RIGHT RADEX HUMERUS MINIMUM 2 VIEWS Brianna Hayden APRN.ASSOCIATE MANAGER [address] [place] [address] [place] [address] Referral ID Status Reason Start Date Expiration Date V isits Requested Visits Authorized [id number] Closed Auto-Generate d Referral 05/29/2024 06/28/2025 1 1 Specialty Diagnoses / Procedures Referred By Contac t Referred To Contact XR IMAGING Diagnoses Pain of right upper extremity Procedures XR SHOULDER GENERAL 3V OR MORE AP/TRUE AP/OTHER RIGHT RADEX SHOULDER COMPLETE MINIMUM 2 VIEWS Brianna Hayden APRN.ASSOCIATE MANAGER [address] [place] [address] [place] [address] Referral ID Status Reason Start Date Expiration Date V isits Requested Visits Authorized [id number] Closed Auto-Generate d Referral 05/29/2024 06/28/2025 1 1 Summary Purpose Family History No Family History Records FoundNo Family History Records Found Advance Directives No Advanced Directives Records FoundNo Advanced Directives Records Found Additional Source Comments Source Comments (unrecognize d section and content) In the event this informatio n is protected by the Federal Confidentiality of Alcohol and Drug Abuse Patient Records regulations: The Federal rules restrict any use of the information to criminally investigate or prosecute any alcohol or drug abuse patient.[facility] the event this information is protected by the Federal Confidentiality of Alcohol and Drug Abuse Patient Records regulations: The Federal rules restrict any use of the information to criminally investigate or prosecute any alcohol or drug abuse patient.[facility] the event this information is protected by the Federal Confidentiality of Alcohol and Drug Abuse Patient Records regulations: The Federal rules restrict any use of the information to criminally investigate or prosecute any alcohol or drug abuse patient.[facility] the event this information is protected by the Federal Confidentiality of Alcohol and Drug Abuse Patient Records regulations: The Federal rules restrict any use of the information to criminally investigate or prosecute any alcohol or drug abuse patient.[facility] the event this information is protected by the Federal Confidentiality of Alcohol and Drug Abuse Patient Records regulations: The Federal rules restrict any use of the information to criminally investigate or prosecute any alcohol or drug abuse patient.[facility] the event this information is protected by the Federal Confidentiality of Alcohol and Drug Abuse Patient Records regulations: The Federal rules restrict any use of the information to criminally investigate or prosecute any alcohol or drug abuse patient.[facility] Hospital[facility] the event this information is protected by the Federal Confidentiality of Alcohol and Drug Abuse Patient Records regulations: The Federal rules restrict any use of the information to criminally investigate or prosecute any alcohol or drug abuse patient.[facility] the event this information is protected by the Federal Confidentiality of Alcohol and Drug Abuse Patient Records regulations: The Federal rules restrict any use of the information to criminally investigate or prosecute any alcohol or drug abuse patient.[facility] the event this information is protected by the Federal Confidentiality of Alcohol and Drug Abuse Patient Records regulations: The Federal rules restrict any use of the information to criminally investigate or prosecute any alcohol or drug abuse patient.[facility] the event this information is protected by the Federal Confidentiality of Alcohol and Drug Abuse Patient Records regulations: The Federal rules restrict any use of the information to criminally investigate or prosecute any alcohol or drug abuse patient.[facility] the event this information is protected by the Federal Confidentiality of Alcohol and Drug Abuse Patient Records regulations: The Federal rules restrict any use of the information to criminally investigate or prosecute any alcohol or drug abuse patient.[facility] the event this information is protected by the Federal Confidentiality of Alcohol and Drug Abuse Patient Records regulations: The Federal rules restrict any use of the information to criminally investigate or prosecute any alcohol or drug abuse patient.[facility] Hospital[facility] the event this information is protected by the Federal Confidentiality of Alcohol and Drug Abuse Patient Records regulations: The Federal rules restrict any use of the information to criminally investigate or prosecute any alcohol or drug abuse patient.[facility] Hospital[facility] the event this information is protected by the Federal Confidentiality of Alcohol and Drug Abuse Patient Records regulations: The Federal rules restrict any use of the information to criminally investigate or prosecute any alcohol or drug abuse patient.[facility] Hospital[facility] the event this information is protected by the Federal Confidentiality of Alcohol and Drug Abuse Patient Records regulations: The Federal rules restrict any use of the information to criminally investigate or prosecute any alcohol or drug abuse patient.[facility] Hospital[facility] the event this information is protected by the Federal Confidentiality of Alcohol and Drug Abuse Patient Records regulations: The Federal rules restrict any use of the information to criminally investigate or prosecute any alcohol or drug abuse patient.[facility] Hospital[facility] the event this information is protected by the Federal Confidentiality of Alcohol and Drug Abuse Patient Records regulations: The Federal rules restrict any use of the information to criminally investigate or prosecute any alcohol or drug abuse patient.[facility] Hospital[facility] the event this information is protected by the Federal Confidentiality of Alcohol and Drug Abuse Patient Records regulations: The Federal rules restrict any use of the information to criminally investigate or prosecute any alcohol or drug abuse patient.[facility] the event this information is protected by the Federal Confidentiality of Alcohol and Drug Abuse Patient Records regulations: The Federal rules restrict any use of the information to criminally investigate or prosecute any alcohol or drug abuse patient.[facility] HospitalIn the event this information is protected by the Federal Confidentiality of Alcohol and Drug Abuse Patient Records regulations: The Federal rules restrict any use of the information to criminally investigate or prosecute any alcohol or drug abuse patient.[facility] Hospital[facility] the event this information is protected by the Federal Confidentiality of Alcohol and Drug Abuse Patient Records regulations: The Federal rules restrict any use of the information to criminally investigate or prosecute any alcohol or drug abuse patient.[facility] Hospital[facility] the event this information is protected by the Federal Confidentiality of Alcohol and Drug Abuse Patient Records regulations: The Federal rules restrict any use of the information to criminally investigate or prosecute any alcohol or drug abuse patient.[facility] Reason for Visit (unrecogniz ed section and content) Reason Onset Date Comments Refill Request 02/23/2022 Reason Comments Medicare Wellness Exam Reason Comments Results Reason Comments Rx Refills Reason Comments New Patient New Pt presented wit h caregiver Lin, from [facility] Longterm, increased agitation x1.5 yrs, insomnia. Specialty Diagnoses / Procedures Referred By Rashmi t Referred To Contact Neurology Diagnoses Behavioral change Unspecified intellectual disabilities Procedures CONSULT TO NEUROLOGY OFFICE/OUTPATIENT NEW [facility] MDM 60 MINUTES Queta Denis M, RESTAURANT DISTRICT MANAGER.ASSOCIATE MANAGER [address] [place] [address] Referral ID Status Reason Start Date Expiration Date V isits Requested Visits Authorized [id number] Closed PCP Requested Referral 11/03/2023 11/02/2024 [address] Specialty Diagnoses / Procedures Referred By Rashmi t Referred To Contact CT IMAGING Diagnoses Behavioral change Cognitive decline Procedures CT BRAIN WO IVCON CT HEAD/BRAIN W/O CONTRAST MATERIAL James Bronson Jr., MD [address] [facility] [address] [place] [address] Ct Imaging [facility] Referral ID Status Reason Start Date Expiration Date V isits Requested Visits Authorized [id number] Closed Auto-Generate d Referral 02/04/2024 03/05/2025 1 1 Reason Comments Follow Up Pt presented with ca regiver reported improved memory, sleep with Namenda. Reason Comments c/o right shoulder pain x 1 day Urinary frequency at night Reason Comments Arm Pain right bicep area x t hurs, seen Queta on Wednesday not testing Reason Comments PT Eval Specialty Diagnoses / Procedures Referred By Contac t Referred To Contact [facility] Diagnoses Pain of right upper extremity Procedures [facility] - CONSULT TO PHYSICAL THERAPY OFFICE/OUTPATIENT [facility] 60 MINUTES Brianna Hayden, ISABELA.ASSOCIATE MANAGER [address] [place] [address] [facility] [address] [place] [address] Referral ID Status Reason Start Date Expiration Date Visits Requested Visits Authorized [id number] Authorized Auto-Generat ed Referral 10/25/2023 10/24/2024 99 99 Reason Onset Date Comments Refill Request 11/02/2024 Reason Comments New foot check Reason Comments Balance/Incoordination Unsteady gait Reason Comments Earwax Bilat ear impacted w ith wax, was seen last week and doc was unable to clean out , having balance issues Reason Comments Recheck 6 months Reason Comments Edema Reason Comments Follow Up Nail care Care Teams (unrecognized sec tion and content) Farmer Vegetable Relationship Specialty Start Date End Date Javy Melendez MD [address] [place], [place] [id number] PCP - General Internal Medicine 12/03/10 Farmer Vegetable Relationship Specialty Start Date End Date Javy Melendez MD [address] [place], [place] [id number] PCP - General Internal Medicine 12/03/10 Farmer Vegetable Relationship Specialty Start Date End Date Javy Melendez MD [address] [place] [address] PCP - General Internal Medicine 12/03/10 Farmer Vegetable Relationship Specialty Start Date End Date Javy Melendez MD [address] [facility] [place] [address] PCP - General Internal Medicine 12/03/10 Farmer Vegetable Relationship Specialty Start Date End Date Javy Melendez MD [address] [facility] [place] [address] PCP - General Internal Medicine 12/03/10 Farmer Vegetable Relationship Specialty Start Date End Date Javy Melendez MD [address] [facility] [place] [address] PCP - General Internal Medicine 12/03/10 Farmer Vegetable Relationship Specialty Start Date End Date Javy Melendez MD [address] [facility] [place] [address] PCP - General Internal Medicine 12/03/10 Farmer Vegetable Relationship Specialty Start Date End Date Javy Melendez MD [address] [facility] [place] [address] PCP - General Internal Medicine 12/03/10 Farmer Vegetable Relationship Specialty Start Date End Date Javy Melendez MD [address] [facility] [place] [address] PCP - General Internal Medicine 12/03/10 Farmer Vegetable Relationship Specialty Start Date End Date Javy Melendez MD [address] [facility] [place] [address] PCP - General Internal Medicine 12/03/10 Farmer Vegetable Relationship Specialty Start Date End Date Javy Melendez MD [address] [facility] [place] [address] PCP - General Internal Medicine 12/03/10 Farmer Vegetable Relationship Specialty Start Date End Date Javy Melendez MD [address] [facility] [place] [address] PCP - General Internal Medicine 12/03/10 Farmer Vegetable Relationship Specialty Start Date End Date Javy Melendez MD [address] [facility] [place] [address] PCP - General Internal Medicine 12/03/10 Queta Denis, RESTAURANT DISTRICT MANAGER.ASSOCIATE MANAGER [address] [facility] [place] [address] [facility] 10/02/24 Farmer Vegetable Relationship Specialty Start Date End Date Javy Melendez MD [address] [facility] [place] [address] PCP - General Internal Medicine 12/03/10 Queta Denis, RESTAURANT DISTRICT MANAGER.ASSOCIATE MANAGER [address] [facility] [place] [address] [facility] 10/02/24 Farmer Vegetable Relationship Specialty Start Date End Date Javy Melendez MD [address] [facility] [place] [address] PCP - General Internal Medicine 12/03/10 Queta Denis, RESTAURANT DISTRICT MANAGER.ASSOCIATE MANAGER [address] [facility] [place] [address] [facility] 10/02/24 Farmer Vegetable Relationship Specialty Start Date End Date Javy Melendez MD [address] [facility], [place] [address] PCP - General Internal Medicine 12/03/10 Queta Denis, RESTAURANT DISTRICT MANAGER.ASSOCIATE MANAGER [address] [facility] [place] [address] [facility] 10/02/24 Farmer Vegetable Relationship Specialty Start Date End Date Javy Melendez MD [address] [place] [address] PCP - General Internal Medicine 12/03/10 Queta Denis, RESTAURANT DISTRICT MANAGER.ASSOCIATE MANAGER [address] [place] [address] [facility] 10/02/24 Farmer Vegetable Relationship Specialty Start Date End Date Javy Melendez MD [address] [place] [address] PCP - General Internal Medicine 12/03/10 Queta Denis, RESTAURANT DISTRICT MANAGER.ASSOCIATE MANAGER [address] [facility] [place] [address] [facility] 10/02/24 Farmer Vegetable Relationship Specialty Start Date End Date Javy Melendez MD [address] [facility] [place] [address] PCP - General Internal Medicine 12/03/10 Queta Denis, RESTAURANT DISTRICT MANAGER.ASSOCIATE MANAGER [address] [facility] [place] [address] [facility] 10/02/24 Farmer Vegetable Relationship Specialty Start Date End Date Javy Melendez MD [address] [facility] [place], [place] [address] PCP - General Internal Medicine 12/03/10 Queta Denis, RESTAURANT DISTRICT MANAGER.ASSOCIATE MANAGER [address] [facility] [place], [place] [address] [facility] 10/02/24 Farmer Vegetable Relationship Specialty Start Date End Date Javy Melendez MD [address] [facility] [place], [place] [address] PCP - General Internal Medicine 12/03/10 Queta Denis, RESTAURANT DISTRICT MANAGER.ASSOCIATE MANAGER [address] [facility] [place], [place] [address] [facility] 10/02/24 (unrecognized sect ion and content) No Status Records FoundNo Status Records Found INFORMATION SOURCE (unrecogn ized section and content) DATE CREATED AUTHOR 08/22/2024 [facility] DATE CREATED AUTHOR AUTHOR'S REUBEN LOZOYA 08/24/2025 [facility] FOR RECORDS PERTAINING TO PATIENTS WHO ARE OR HAVE BEEN ENROLLED IN A CHEMICAL DEPENDENCY/SUBSTANCEABUSE PROGRAM, SOME INFORMATION MAY BE OMITTED. This clinical summary was aggregated from multiple sources. Caution should be exercised in using it in the provision of clinical care. This summary normalizes information from multiple sources, and as a consequence, information in this document may materially change the coding, format and clinical context of patient data. In addition, data may be omitted in some cases. CLINICAL DECISIONS SHOULD BE BASED ON THE PRIMARY CLINICAL RECORDS. [employer] provides no warranty or guarantee of the accuracy or completeness of information in this document.
[2025-09-29 16:09] VITALS: BP 134/78; PULSE 64; RESP 18; TEMP 36.6; O2SAT 99
== END 2025-09-29 16:10 | disposition home or self-care (01) ==
PROVIDERS: Emergency Provider Emergency Medicine; PCP Internal Medicine; Visit Provider Emergency Medicine
DX: S01.21XA Laceration without foreign body of nose, initial encounter (principal); G30.9 Alzheimer's disease, unspecified; F02.80 Dementia in other diseases classified elsewhere, unspecified severity, without behavioral disturbance, psychotic disturbance, mood disturbance, and anxiety; W01.0XXA Fall on same level from slipping, tripping and stumbling without subsequent striking against object, initial encounter; I10 Essential (primary) hypertension; E78.5 Hyperlipidemia, unspecified; Z85.46 Personal history of malignant neoplasm of prostate; Z79.899 Other long term (current) drug therapy; F17.290 Nicotine dependence, other tobacco product, uncomplicated
CPT/HCPCS: 70450; 99284